=== PATIENT | female | born 1930 | race Caucasian/White ===

== ENCOUNTER 2018-04-05 07:31 | Inpatient (IN) | payer MEDICARE ==
--- NOTE | 2018-04-05 07:44 | ED ---
General Adult HPI - General Stated complaint: abd pain Source: patient, family, EMS Mode of arrival: ambulatory Limitations: no limitations - History of Present Illness Initial comments: Dictation was produced using [employer] ([employer]) dictation software. please excuse any grammatical, word or spelling errors. Chief Complaint: 87-year-old female presents via EMS from assisted living facility for left lower quadrant abdominal pain. History of Present Illness: Patient is an 87-year-old female with past medical history of diverticulosis, thyroid disease presents with left lower quadrant abdominal pain 1 day. Patient states her symptoms began yesterday. She states that it was dull and achy. Patient has a history of diverticulitis. Chart review shows she has a past medical history of diverticulosis. Patient denies any nausea vomiting or diarrhea. Patient is a poor historian. Unknown baseline. EMS who brought patient hour reports stable vital signs. Patient denies any constitutional symptoms. She has past medical history of cholecystectomy and abdominoplasty procedure. She reports that her symptoms have resolved since and transferred to the emergency department. The ROS documented in this emergency department record has been reviewed and confirmed by me. Those systems with pertinent positive or negative responses have been documented in the HPI. All other systems are other negative and/or noncontributory. - Related Data Home Medications Medication Instructions Recorded Confirmed Furosemide [Lasix] 20 mg PO DAILY 01/31/14 04/05/18 Latanoprost Ophth [Xalatan 0.005%] 1 drop BOTH EYES HS 01/31/14 04/05/18 Potassium Chloride [Klor-Con 20] 20 meq PO DAILY 01/31/14 04/05/18 Levothyroxine Sodium [Synthroid] 75 mcg PO DAILY 04/16/14 04/05/18 Loperamide [Imodium] 2 mg PO DAILY PRN 04/16/14 04/05/18 Multivit-Min/FA/Lycopene/Lut 1 tab PO DAILY 01/01/15 04/05/18 [Centrum Silver Tablet] Propylene Glycol/Peg 400/Pf 1 drop BOTH EYES DAILY PRN 01/01/15 04/05/18 [Systane 0.3-0.4% Eye Drops] Aspirin 81 mg PO DAILY 05/07/15 04/05/18 Ergocalciferol [Vitamin D2] 50,000 unit PO Q14D 04/05/18 04/05/18 Ferrous Sulfate [Feosol] 325 mg PO DAILY 04/05/18 04/05/18 Allergies Allergy/AdvReac Type Severity Reaction Status Date / Time amoxicillin [From Augmentin] Allergy Unknown Verified 04/05/18 09:38 clavulanic acid Allergy Unknown Verified 04/05/18 09:38 [From Augmentin] codeine Allergy Rash/Hives Verified 04/05/18 09:38 pravastatin [From Pravachol] Allergy Unknown Verified 04/05/18 09:38 ramipril [From Altace] Allergy Unknown, Verified 04/05/18 09:38 SNEEZING RUNNY NOSE Review of Systems ROS Statement: Those systems with pertinent positive or pertinent negative responses have been documented in the HPI. ROS Other: All systems not noted in ROS Statement are negative. Past Medical History Past Medical History: Eye Disorder, Hyperlipidemia, Hypertension, Mitral Valve Prolapse (MVP), Osteoarthritis (OA), Thyroid Disorder Additional Past Medical History / Comment(s): HX OF ANEMIA, ULCER, GLAUCOMA, HX OF low back pain, HX STATES DIVERTICULOSIS AND HIATAL HERNIA, PT NOT AWARE History of Any Multi-Drug Resistant Organisms: None Reported Past Surgical History: Adenoidectomy, Cardiac Valve Replacement, Cholecystectomy , Joint Replacement, Orthopedic Surgery, Tonsillectomy Additional Past Surgical History / Comment(s): BILAT CATARACT, MITRAL VALVE REPLACED. BILAT KNEE REPLACEMENT. Epidural pain injectionsl x 3. Past Anesthesia/Blood Transfusion Reactions: No Reported Reaction Additional Past Anesthesia/Blood Transfusion Reaction / Comment(s): Pt has recieved blood with no adverse reaction. Past Psychological History: Anxiety, Depression, Panic Disorder Smoking Status: Never smoker Past Drug Use History: None Reported - Past Family History Father Family Medical History: Pneumonia Additional Family Medical History / Comment(s): Father was healthy. He of pneumonia at age 81yrs Mother Family Medical History: Congestive Heart Failure (CHF) Additional Family Medical History / Comment(s): Mother had low blood pressure. She had a cholecystectomy. She at age 85yrs. General Exam - General Exam Comments Initial Comments: PHYSICAL EXAM: General Impression: Alert and oriented x3, not in acute distress HEENT: Normocephalic atraumatic, extra-ocular movements intact, pupils equal and reactive to light bilaterally, mucous membranes moist. Cardiovascular: Heart regular rate and rhythm, S1&S2 audible, no murmurs, rubs or gallops Chest: Lungs clear to auscultation bilaterally, no rhonchi, no wheeze, no rales Abdomen: Tenderness to the left lower quadrant Musculoskeletal: Pulses present and equal in all extremities, no peripheral edema Motor: Power 5/5 bilaterally, no focal deficits noted Neurological: CN II-XII grossly intact, no focal motor or sensory deficits noted Skin: Intact with no visualized rashes Psych: Normal affect and mood Limitations: no limitations Course Vital Signs 04/05/18 07:34 Temperature 98.8 F Pulse Rate 87 Respiratory 18 Rate Blood Pressure 172/77 O2 Sat by Pulse 97 Oximetry Medical Decision Making - Medical Decision Making ED course: 82-year-old female presents with left lower quadrant abdominal pain 1 day. Vital signs upon arrival shows no pyrexia. Blood pressure 172/77. Rest of vital signs within normal limits. Laboratory evaluation obtained. Mild leukocytosis of 10.9. Hemoglobin 9.2. Coag panel unremarkable. Metabolic panel is negative. Urinalysis is negative. Abdominal CT was obtained showing diverticulosis without findings of diverticulitis however there is nonvisualization of appendix. There is some right lower quadrant fluid and some suspicion that patient's symptoms likely appendicitis. Serial abdominal examinations were performed. Repeat abdominal exam showed mild increase in tenderness to the periumbilical area. Patient still denies any pain in the right lower quadrant. Patient given IV antibiotics. Discussed patient case with general surgeon who is willing to accept admission. - Lab Data Result diagrams: 04/05/18 07:40 04/05/18 07:40 Lab Results 04/05/18 04/05/18 04/05/18 Range/Units 07:40 07:40 07:40 WBC 10.9 H (3.8-10.6) k/uL RBC 3.78 L (3.80-5.40) m/uL Hgb 9.2 L (11.4-16.0) gm/dL Hct 30.6 L (34.0-46.0) % MCV 81.0 (80.0-100.0) fL MCH 24.4 L (25.0-35.0) pg MCHC 30.1 L (31.0-37.0) g/dL RDW 15.3 (11.5-15.5) % Plt Count 271 (150-450) k/uL Neutrophils % 81 % Lymphocytes % 10 % Monocytes % 5 % Eosinophils % 1 % Basophils % 1 % Neutrophils # 8.8 H (1.3-7.7) k/uL Lymphocytes # 1.1 (1.0-4.8) k/uL Monocytes # 0.5 (0-1.0) k/uL Eosinophils # 0.1 (0-0.7) k/uL Basophils # 0.1 (0-0.2) k/uL Hypochromasia Slight PT (9.0-12.0) sec INR (<1.2) Sodium 139 (137-145) mmol/L Potassium 4.3 (3.5-5.1) mmol/L Chloride 110 H (98-107) mmol/L Carbon Dioxide 24 (22-30) mmol/L Anion Gap 5 mmol/L BUN 18 H (7-17) mg/dL Creatinine 1.07 H (0.52-1.04) mg/dL Est GFR (CKD-EPI)AfAm 55 (>60 ml/min/1.73 sqM) Est GFR (CKD-EPI)NonAf 48 (>60 ml/min/1.73 sqM) Glucose 91 (74-99) mg/dL Plasma Lactic Acid Branden 0.8 (0.7-2.0) mmol/L Calcium 9.1 (8.4-10.2) mg/dL Total Bilirubin 0.4 (0.2-1.3) mg/dL AST 25 (14-36) U/L ALT 27 (9-52) U/L Alkaline Phosphatase 61 (38-126) U/L Total Protein 6.2 L (6.3-8.2) g/dL Albumin 3.7 (3.5-5.0) g/dL Lipase 141 (23-300) U/L Urine Color Urine Appearance (Clear) Urine pH (5.0-8.0) Ur Specific [place] (1.001-1.035) Urine Protein (Negative) Urine Glucose (UA) (Negative) Urine Ketones (Negative) Urine Blood (Negative) Urine Nitrite (Negative) Urine Bilirubin (Negative) Urine Urobilinogen (<2.0) mg/dL Ur Leukocyte Esterase (Negative) 04/05/18 04/05/18 Range/Units 07:40 07:40 WBC (3.8-10.6) k/uL RBC (3.80-5.40) m/uL Hgb (11.4-16.0) gm/dL Hct (34.0-46.0) % MCV (80.0-100.0) fL MCH (25.0-35.0) pg MCHC (31.0-37.0) g/dL RDW (11.5-15.5) % Plt Count (150-450) k/uL Neutrophils % % Lymphocytes % % Monocytes % % Eosinophils % % Basophils % % Neutrophils # (1.3-7.7) k/uL Lymphocytes # (1.0-4.8) k/uL Monocytes # (0-1.0) k/uL Eosinophils # (0-0.7) k/uL Basophils # (0-0.2) k/uL Hypochromasia PT 9.8 (9.0-12.0) sec INR 1.0 (<1.2) Sodium (137-145) mmol/L Potassium (3.5-5.1) mmol/L Chloride (98-107) mmol/L Carbon Dioxide (22-30) mmol/L Anion Gap mmol/L BUN (7-17) mg/dL Creatinine (0.52-1.04) mg/dL Est GFR (CKD-EPI)AfAm (>60 ml/min/1.73 sqM) Est GFR (CKD-EPI)NonAf (>60 ml/min/1.73 sqM) Glucose (74-99) mg/dL Plasma Lactic Acid Branden (0.7-2.0) mmol/L Calcium (8.4-10.2) mg/dL Total Bilirubin (0.2-1.3) mg/dL AST (14-36) U/L ALT (9-52) U/L Alkaline Phosphatase (38-126) U/L Total Protein (6.3-8.2) g/dL Albumin (3.5-5.0) g/dL Lipase (23-300) U/L Urine Color Yellow Urine Appearance Clear (Clear) Urine pH 5.5 (5.0-8.0) Ur Specific [place] 1.014 (1.001-1.035) Urine Protein Negative (Negative) Urine Glucose (UA) Negative (Negative) Urine Ketones Negative (Negative) Urine Blood Negative (Negative) Urine Nitrite Negative (Negative) Urine Bilirubin Negative (Negative) Urine Urobilinogen <2.0 (<2.0) mg/dL Ur Leukocyte Esterase Negative (Negative) Disposition Clinical Impression: Acute abdomen Disposition: ADMITTED IP TO THIS HOSP Condition: Fair Referrals: Genevieve Singh MD [Primary Care Provider] - 1-2 days Time of Disposition: 10:21
[2018-04-05 07:57] LABS: Basophils # (A) 0.1 k/uL (0-0.2); Basophils % (A) 1 %; Eosinophils # (A) 0.1 k/uL (0-0.7); Eosinophils % (A) 1 %; HCT 30.6 % (34.0-46.0); HGB 9.2 gm/dL (11.4-16.0); Hypochromasia Slight; Lymphocytes # (A) 1.1 k/uL (1.0-4.8); Lymphocytes % (A) 10 %; MCH 24.4 pg (25.0-35.0); MCHC 30.1 g/dL (31.0-37.0); Mean Platelet Volume 6.6; Monocytes # (A) 0.5 k/uL (0-1.0); Monocytes % (A) 5 %; Neutrophils # (A) 8.8 k/uL (1.3-7.7); Neutrophils % (A) 81 %; Platelet Count 271 k/uL (150-450); RBC 3.78 m/uL (3.80-5.40); RDW 15.3 % (11.5-15.5); WBC 10.9 k/uL (3.8-10.6)
[2018-04-05 08:05] LABS: Prothrombin Time 9.8 sec (9.0-12.0)
[2018-04-05 08:09] LABS: Appearance,Urine Clear (Clear); Bilirubin,Urine Negative (Negative); Blood,Urine Negative (Negative); Color,Urine Yellow; Glucose,Urine (UA) Negative (Negative); Ketones,Urine Negative (Negative); Leukocyte Esterase,Urine Negative (Negative); Nitrite,Urine Negative (Negative); PH, Urine 5.5 (5.0-8.0); Protein,Urine Negative (Negative); Specific Gravity,Urine 1.014 (1.001-1.035); Urobilinogen,Urine <2.0 mg/dL (<2.0)
[2018-04-05 08:12] LABS: Albumin 3.7 g/dL (3.5-5.0); Calcium 9.1 mg/dL (8.4-10.2); Potassium 4.3 mmol/L (3.5-5.1); Total Bilirubin 0.4 mg/dL (0.2-1.3); Total Protein 6.2 g/dL (6.3-8.2)
[2018-04-05] MEDS ORDERED: metroNIDAZOLE 500 MG TAB PO STA (09:35)
[2018-04-05] MEDS ORDERED: LEVOFLOXACIN 750 MG TAB PO STA (09:35)
--- NOTE | 2018-04-05 10:00 | CT ---
EXAMINATION TYPE: CT abdomen pelvis w con DATE OF EXAM: 04/05/2018 COMPARISON: 09/19/2014 INDICATION: Abdominal pain DLP: 913 mGycm, Automated exposure control for dose reduction was used. CONTRAST: 100 ml mL of Isovue 300. Study performed without Oral Contrast TECHNIQUE: Axial images were obtained from above the diaphragm to the pubic rami in the axial plane a t 5 mm thick sections. Reconstructed images are reviewed on the computer in the coronal plane. FINDINGS: Limited CT sections are obtained the lung bases. The lung bases are clear. Coronary artery calcific ations present. Large hiatal hernia is present. The stomach essentially is in the thorax. CT ABDOMEN: Liver: Normal Spleen: Normal Pancreas: Normal Adrenal glands: The adrenal glands are normal. Gallbladder: Surgically absent Kidneys: No masses are evident. No hydronephrosis is present. No cysts are present. Delayed images were obtained through the kidneys, which remain unremarkable. Aorta: Vascular calcification is within the aorta. Inferior vena cava: Normal. CT PELVIS: Scoliosis is present. Loops of bowel within the abdomen and pelvis are normal. Multiple diverticuli are through the sigm oid colon. No acute diverticulitis is evident. Some fecal debris is at the rectum. There are loops of bowel which are incompletely distended or lack oral contrast limiting their evaluation. Appendix: Not identified. There is some fluid in the pelvis and right adnexal region. Correlate with patient's history. The appendix is not identified in this is not been surgically removed, clinical ma nagement of any suspected appendicitis will be recommended. Urinary bladder: Normal. Genitourinary structures: Uterus appears normal. Some fluid is in the right adnexal region. Fluid is within the cul-de-sac. Osseous structures: No suspicious lytic or sclerotic lesions. Facet changes are within the lower lumb ar spine. IMPRESSIONS: 1. Diverticulosis without acute diverticulitis. 2. Nonvisualization of the appendix. Right lower quadrant fluid is present. Clinical management of an y suspected appendicitis will be recommended.
[2018-04-05] MEDS ORDERED: metroNIDAZOLE-NS PMX 500 MG in SALINE 1 100ML.BAG IVPB STA (10:17)
[2018-04-05] MEDS ORDERED: cefTRIAXone IN SWFI 1,000 MG/10 ML SYRINGE IVP STA (10:20)
[2018-04-05] MEDS ORDERED: NALOXONE 0.4 MG/ML 1 ML VIAL IV PRN (10:21)
[2018-04-05 11:56] VITALS: BMI 24.0
--- NOTE | 2018-04-05 15:29 | P.GSCN ---
History of Present Illness Consult date: 04/05/18 Reason for Consult: Abdominal pain History of present illness: 87-year-old female presented to the emergency room with a chief complaint of experiencing left lower quadrant abdominal pain. 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 Reviewing the emergency room record patient presented via the EMS system from an assisted living facility after experiencing the left lower quadrant abdominal pain. reportedly has a history of diverticulitis. states the pain was dull and achy. Patient currently is stating that she has no abdominal pain. Computed tomography scan abdomen pelvis showed diverticulosis without acute diverticulitis Review of Systems essentially unremarkable except as mentioned in the present illness Past Medical History Past Medical History: Eye Disorder, Hyperlipidemia, Hypertension, Mitral Valve Prolapse (MVP), Osteoarthritis (OA), Thyroid Disorder Additional Past Medical History / Comment(s): HX OF ANEMIA, ULCER, GLAUCOMA, HX OF low back pain, HX STATES DIVERTICULOSIS AND HIATAL HERNIA, PT NOT AWARE History of Any Multi-Drug Resistant Organisms: None Reported Past Surgical History: Adenoidectomy, Cardiac Valve Replacement, Cholecystectomy , Joint Replacement, Orthopedic Surgery, Tonsillectomy Additional Past Surgical History / Comment(s): BILAT CATARACT, MITRAL VALVE REPLACED. BILAT KNEE REPLACEMENT. Epidural pain injectionsl x 3. Past Anesthesia/Blood Transfusion Reactions: No Reported Reaction Additional Past Anesthesia/Blood Transfusion Reaction / Comm: Pt has recieved blood with no adverse reaction. Past Psychological History: Anxiety, Depression, Panic Disorder Additional Psychological History / Comment(s): PT STATES NO CURRENT ISSUES Smoking Status: Never smoker Past Alcohol Use History: Occasional Additional Past Alcohol Use History / Comment(s): Pt may drink 2-3 drinks a month. Past Drug Use History: None Reported - Past Family History Father Family Medical History: Pneumonia Additional Family Medical History / Comment(s): Father was healthy. He of pneumonia at age 81yrs Mother Family Medical History: Congestive Heart Failure (CHF) Additional Family Medical History / Comment(s): Mother had low blood pressure. She had a cholecystectomy. She at age 85yrs. Medications and Allergies Home Medications Medication Instructions Recorded Confirmed Type Furosemide [Lasix] 20 mg PO DAILY 01/31/14 04/05/18 History Latanoprost Ophth [Xalatan 0.005%] 1 drop BOTH EYES HS 01/31/14 04/05/18 History Potassium Chloride [Klor-Con 20] 20 meq PO DAILY 01/31/14 04/05/18 History Levothyroxine Sodium [Synthroid] 75 mcg PO DAILY 04/16/14 04/05/18 History Loperamide [Imodium] 2 mg PO DAILY PRN 04/16/14 04/05/18 History Multivit-Min/FA/Lycopene/Lut 1 tab PO DAILY 01/01/15 04/05/18 History [Centrum Silver Tablet] Propylene Glycol/Peg 400/Pf 1 drop BOTH EYES DAILY PRN 01/01/15 04/05/18 History [Systane 0.3-0.4% Eye Drops] Aspirin 81 mg PO DAILY 05/07/15 04/05/18 History Ergocalciferol [Vitamin D2] 50,000 unit PO Q14D 04/05/18 04/05/18 History Ferrous Sulfate [Feosol] 325 mg PO DAILY 04/05/18 04/05/18 History Allergies Allergy/AdvReac Type Severity Reaction Status Date / Time amoxicillin [From Augmentin] Allergy Unknown Verified 04/05/18 09:38 clavulanic acid Allergy Unknown Verified 04/05/18 09:38 [From Augmentin] codeine Allergy Rash/Hives Verified 04/05/18 09:38 pravastatin [From Pravachol] Allergy Unknown Verified 04/05/18 09:38 ramipril [From Altace] Allergy Unknown, Verified 04/05/18 09:38 SNEEZING RUNNY NOSE Surgical - Exam Vital Signs Temp Pulse Resp BP Pulse Ox 98.8 F 87 18 172/77 97 04/05/18 07:34 04/05/18 07:34 04/05/18 07:34 04/05/18 07:34 04/05/18 07:34 GENERAL APPEARANCE: 87-year-old female patient is alert, oriented, in no acute distress. VITAL SIGNS: Reviewed HEENT: Head is normocephalic and atraumatic. Pupils are equal and reactive. The nares are patent. Oropharynx is clear without lesions. NECK: Supple without lymphadenopathy. Traches midline. HEART: S1, S2. Regular rate and rhythm. LUNGS: No crackles or wheezes are heard. ABDOMEN: Soft, nontender, nondistended with good bowel sounds. No peritoneal signs. No palpable organomegaly or masses. EXTREMITIES: Normal skin color and turgor. No cyanosis, rash, ulceration, clubbing or edema. Radial pedal pulses are 2/4 bilaterally. NEUROLOGICAL: No focal deficits. Strength and sensation are grossly intact. Results - Labs 04/05/18 07:40 04/05/18 07:40 Abnormal Lab Results - Last 24 Hours (Table) 04/05/18 04/05/18 Range/Units 07:40 07:40 WBC 10.9 H (3.8-10.6) k/uL RBC 3.78 L (3.80-5.40) m/uL Hgb 9.2 L (11.4-16.0) gm/dL Hct 30.6 L (34.0-46.0) % MCH 24.4 L (25.0-35.0) pg MCHC 30.1 L (31.0-37.0) g/dL Neutrophils # 8.8 H (1.3-7.7) k/uL Chloride 110 H (98-107) mmol/L BUN 18 H (7-17) mg/dL Creatinine 1.07 H (0.52-1.04) mg/dL Total Protein 6.2 L (6.3-8.2) g/dL Diabetes panel 04/05/18 Range/Units 07:40 Sodium 139 (137-145) mmol/L Potassium 4.3 (3.5-5.1) mmol/L Chloride 110 H (98-107) mmol/L Carbon Dioxide 24 (22-30) mmol/L BUN 18 H (7-17) mg/dL Creatinine 1.07 H (0.52-1.04) mg/dL Glucose 91 (74-99) mg/dL Calcium 9.1 (8.4-10.2) mg/dL AST 25 (14-36) U/L ALT 27 (9-52) U/L Alkaline Phosphatase 61 (38-126) U/L Total Protein 6.2 L (6.3-8.2) g/dL Albumin 3.7 (3.5-5.0) g/dL Calcium panel 04/05/18 Range/Units 07:40 Calcium 9.1 (8.4-10.2) mg/dL Albumin 3.7 (3.5-5.0) g/dL Pituitary panel 04/05/18 Range/Units 07:40 Sodium 139 (137-145) mmol/L Potassium 4.3 (3.5-5.1) mmol/L Chloride 110 H (98-107) mmol/L Carbon Dioxide 24 (22-30) mmol/L BUN 18 H (7-17) mg/dL Creatinine 1.07 H (0.52-1.04) mg/dL Glucose 91 (74-99) mg/dL Calcium 9.1 (8.4-10.2) mg/dL Adrenal panel 04/05/18 Range/Units 07:40 Sodium 139 (137-145) mmol/L Potassium 4.3 (3.5-5.1) mmol/L Chloride 110 H (98-107) mmol/L Carbon Dioxide 24 (22-30) mmol/L BUN 18 H (7-17) mg/dL Creatinine 1.07 H (0.52-1.04) mg/dL Glucose 91 (74-99) mg/dL Calcium 9.1 (8.4-10.2) mg/dL Total Bilirubin 0.4 (0.2-1.3) mg/dL AST 25 (14-36) U/L ALT 27 (9-52) U/L Alkaline Phosphatase 61 (38-126) U/L Total Protein 6.2 L (6.3-8.2) g/dL Albumin 3.7 (3.5-5.0) g/dL Assessment and Plan Assessment: Impression present on admission left lower quadrant pain suspect due to diverticulosis without acute diverticulitis CAT scan of the abdomen pelvis nonvisualization of the appendix Plan No evidence of an acute surgical abdomen at this time will follow with you Start clear liquid diet IV fluid hydration Follow up on urine culture DVT and GI prophylaxis further recommendations pending Surgical consultation dictated for Dr. arevalo The above impression and plan of care have been discussed and directed by signing physician. Pat Rm nurse practitioner acting as scribe for signing physician.
[2018-04-05] MEDS ORDERED: ARTIFICIAL TEARS-HYPROMELLOSE DROPS 15 ML BTL BOTH EYES PRN (15:57)
--- NOTE | 2018-04-05 16:19 | P.HPIM ---
History of Present Illness H&P Date: 04/05/18 Chief Complaint: Left lower quadrant abdominal pain This is a 87-year-old female with a known past medical history of hypertension, hyperlipidemia, hypothyroidism, mitral valve replacement and gastric ulcer. Patient lives in assisted living home. She is a poor historian. She is able to tell me that she came to the hospital because she had left lower quadrant abdominal pain. The pain has now resolved. Initially there were concerns about a possible appendicitis. And patient was admitted to surgical service. She has been seen evaluated by surgical service and they felt that it was not an appendicitis. Therefore, she is now admitted to Dr. Singh's service. Computed tomography scan of the abdomen and pelvis shows diverticulosis without acute diverticulitis. Nonvisualization of the appendix right lower quadrant fluid is present. Patient had a white count of 10.9 hemoglobin 9.2. She does have known history of iron deficiency anemia. She is not complaining of any change in bowel movements or blood in her stool that she is aware of. LFTs amylase and lipase are normal. Urinalysis is negative. Cultures pending. She did receive Levaquin and Flagyl and Rocephin in the ER. Patient is been started on IV fluids and a clear liquid diet. Review of Systems Please refer to HPI otherwise unremarkable Past Medical History Past Medical History: Eye Disorder, Hyperlipidemia, Hypertension, Mitral Valve Prolapse (MVP), Osteoarthritis (OA), Thyroid Disorder Additional Past Medical History / Comment(s): HX OF ANEMIA, ULCER, GLAUCOMA, HX OF low back pain, HX STATES DIVERTICULOSIS AND HIATAL HERNIA, PT NOT AWARE History of Any Multi-Drug Resistant Organisms: None Reported Past Surgical History: Adenoidectomy, Cardiac Valve Replacement, Cholecystectomy , Joint Replacement, Orthopedic Surgery, Tonsillectomy Additional Past Surgical History / Comment(s): BILAT CATARACT, MITRAL VALVE REPLACED. BILAT KNEE REPLACEMENT. Epidural pain injectionsl x 3. Past Anesthesia/Blood Transfusion Reactions: No Reported Reaction Additional Past Anesthesia/Blood Transfusion Reaction / Comment(s): Pt has recieved blood with no adverse reaction. Past Psychological History: Anxiety, Depression, Panic Disorder Additional Psychological History / Comment(s): PT STATES NO CURRENT ISSUES Smoking Status: Never smoker Past Alcohol Use History: Occasional Additional Past Alcohol Use History / Comment(s): Pt may drink 2-3 drinks a month. Past Drug Use History: None Reported - Past Family History Father Family Medical History: Pneumonia Additional Family Medical History / Comment(s): Father was healthy. He of pneumonia at age 81yrs Mother Family Medical History: Congestive Heart Failure (CHF) Additional Family Medical History / Comment(s): Mother had low blood pressure. She had a cholecystectomy. She at age 85yrs. Medications and Allergies Home Medications Medication Instructions Recorded Confirmed Type Furosemide [Lasix] 20 mg PO DAILY 01/31/14 04/05/18 History Latanoprost Ophth [Xalatan 0.005%] 1 drop BOTH EYES HS 01/31/14 04/05/18 History Potassium Chloride [Klor-Con 20] 20 meq PO DAILY 01/31/14 04/05/18 History Levothyroxine Sodium [Synthroid] 75 mcg PO DAILY 04/16/14 04/05/18 History Loperamide [Imodium] 2 mg PO DAILY PRN 04/16/14 04/05/18 History Multivit-Min/FA/Lycopene/Lut 1 tab PO DAILY 01/01/15 04/05/18 History [Centrum Silver Tablet] Propylene Glycol/Peg 400/Pf 1 drop BOTH EYES DAILY PRN 01/01/15 04/05/18 History [Systane 0.3-0.4% Eye Drops] Aspirin 81 mg PO DAILY 05/07/15 04/05/18 History Ergocalciferol [Vitamin D2] 50,000 unit PO Q14D 04/05/18 04/05/18 History Ferrous Sulfate [Feosol] 325 mg PO DAILY 04/05/18 04/05/18 History Allergies Allergy/AdvReac Type Severity Reaction Status Date / Time amoxicillin [From Augmentin] Allergy Unknown Verified 04/05/18 09:38 clavulanic acid Allergy Unknown Verified 04/05/18 09:38 [From Augmentin] codeine Allergy Rash/Hives Verified 04/05/18 09:38 pravastatin [From Pravachol] Allergy Unknown Verified 04/05/18 09:38 ramipril [From Altace] Allergy Unknown, Verified 04/05/18 09:38 SNEEZING RUNNY NOSE Physical Exam Vitals: Vital Signs Temp Pulse Pulse Resp BP BP Pulse Ox 04/05/18 14:47 98.7 F 100 16 132/76 95 04/05/18 11:44 97.7 F 94 18 165/76 94 L 04/05/18 10:55 80 17 168/70 97 04/05/18 07:34 98.8 F 87 18 172/77 97 Intake and Output 04/05/18 04/05/18 04/05/18 06:59 14:59 22:59 Other: # Voids 1 Weight 63.503 kg Head normocephalic Neck supple Lungs clear to auscultation bilaterally no wheezing or crackles Heart regular rate and rhythm S1-S2, no rub or gallop Abdomen is soft nontender nondistended positive bowel sounds no hepatosplenomegaly Extremities no edema Neuro alert and orientated to 3. But confused at times Results CBC & Chem 7: 04/05/18 07:40 04/05/18 07:40 Labs: Abnormal Lab Results - Last 24 Hours (Table) 04/05/18 04/05/18 Range/Units 07:40 07:40 WBC 10.9 H (3.8-10.6) k/uL RBC 3.78 L (3.80-5.40) m/uL Hgb 9.2 L (11.4-16.0) gm/dL Hct 30.6 L (34.0-46.0) % MCH 24.4 L (25.0-35.0) pg MCHC 30.1 L (31.0-37.0) g/dL Neutrophils # 8.8 H (1.3-7.7) k/uL Chloride 110 H (98-107) mmol/L BUN 18 H (7-17) mg/dL Creatinine 1.07 H (0.52-1.04) mg/dL Total Protein 6.2 L (6.3-8.2) g/dL Microbiology - Last 24 Hours (Table) 04/05/18 07:40 Urine Culture - Preliminary Urine,Voided Assessment and Plan Assessment: 1. Left lower quadrant abdominal pain with known history of diverticulosis. No evidence of diverticulitis on CAT scan. Patient seen by surgical service and they felt that there was no evidence of an acute surgical abdomen. Patient has been started on a clear liquid diet continue with IV fluids. Follow up with urine culture. Urinalysis negative. LFTs, amylase and lipase within normal range. We will continue patient on IV Flagyl. If white count normalizes and she's had no further abdominal pain she can be discharged home possibly tomorrow 2. Anemia hemoglobin 9.2. Patient has a known history of iron deficiency anemia. Check stool for occult blood. Check iron studies. Continue with the ferrous sulfate 325 mg daily 3. Hypothyroidism continue Synthroid 4. History of mitral valve replacement 5. Essential hypertension continue Lasix 6. History of gastric ulcer 7. Chronic kidney disease, stage III. Creatinine on admission 1.07. Baseline creatinine around 1.5 GI prophylaxis Protonix and DVT prophylaxis subcu heparin Time with Patient: Greater than 30 (Greater than 60% of the total time spent in counseling and coordination of care.I performed an examination of the patient and discussed their management with the physician Spring Up Supervisor. I have reviewed the Physician Spring Up Supervisor's notes and agree with the documented findings and plan of care)
[2018-04-05] MEDS ORDERED: ERGOCALCIFEROL 50,000 UNIT CAP PO SCH (16:30)
[2018-04-05] MEDS: metroNIDAZOLE-NS PMX 500 MG in SALINE 1 100ML.BAG IVPB SCH ×2 (17:22→23:05)
[2018-04-05] MEDS: HEPARIN SODIUM,PORCINE 5,000 UNIT/ML 1 ML VIAL SQ SCH (20:09)
[2018-04-05] MEDS: LATANOPROST 0.005% OPHTH DROPS 2.5 ML BTL BOTH EYES SCH (20:09)
[2018-04-05] MEDS: MELATONIN 5 MG TABLET PO SCH (20:09)
[2018-04-06 01:08] LABS: Iron Saturation 3.86 (12.00-45.00)
[2018-04-06 07:40] LABS: Basophils # (A) 0.1 k/uL (0-0.2); Basophils % (A) 1 %; Eosinophils # (A) 0.1 k/uL (0-0.7); Eosinophils % (A) 1 %; HCT 26.8 % (34.0-46.0); HGB 8.6 gm/dL (11.4-16.0); Hypochromasia Moderate; Lymphocytes % (A) 12 %; MCH 26.4 pg (25.0-35.0); MCV 82.6 fL (80.0-100.0); Mean Platelet Volume 6.8; Monocytes # (A) 0.7 k/uL (0-1.0); Monocytes % (A) 8 %; Neutrophils # (A) 6.9 k/uL (1.3-7.7); Neutrophils % (A) 76 %; Platelet Count 234 k/uL (150-450); RBC 3.25 m/uL (3.80-5.40)
[2018-04-06 07:49] LABS: Albumin 3.1 g/dL (3.5-5.0); Calcium 8.3 mg/dL (8.4-10.2); Total Bilirubin 0.6 mg/dL (0.2-1.3); Total Protein 5.4 g/dL (6.3-8.2)
[2018-04-06] MEDS: metroNIDAZOLE-NS PMX 500 MG in SALINE 1 100ML.BAG IVPB SCH ×3 (08:35→23:22)
[2018-04-06] MEDS: HEPARIN SODIUM,PORCINE 5,000 UNIT/ML 1 ML VIAL SQ SCH ×2 (08:36→20:23)
[2018-04-06] MEDS: FERROUS SULFATE 325 MG TAB PO SCH (08:36)
[2018-04-06] MEDS: POTASSIUM CHLORIDE ER 20 MEQ TAB.ER PO SCH (08:36)
[2018-04-06] MEDS: LEVOTHYROXINE 75 MCG TAB PO SCH (08:36)
[2018-04-06] MEDS: ASPIRIN 81 MG PO SCH (08:36)
[2018-04-06] MEDS: FUROSEMIDE 20 MG TAB PO SCH (08:36)
[2018-04-06] MEDS: PANTOPRAZOLE 40 MG TABLET PO SCH (08:37)
--- NOTE | 2018-04-06 16:08 | P.PN ---
Subjective Progress Note Date: 04/06/18 This is a 87-year-old female with a known past medical history of hypertension, hyperlipidemia, hypothyroidism, mitral valve replacement and gastric ulcer. Patient lives in assisted living home. She is a poor historian. She is able to tell me that she came to the hospital because she had left lower quadrant abdominal pain. The pain has now resolved. Initially there were concerns about a possible appendicitis. And patient was admitted to surgical service. She has been seen evaluated by surgical service and they felt that it was not an appendicitis. Therefore, she is now admitted to Dr. Singh's service. Computed tomography scan of the abdomen and pelvis shows diverticulosis without acute diverticulitis. Nonvisualization of the appendix right lower quadrant fluid is present. Patient had a white count of 10.9 hemoglobin 9.2. She does have known history of iron deficiency anemia. She is not complaining of any change in bowel movements or blood in her stool that she is aware of. LFTs amylase and lipase are normal. Urinalysis is negative. Cultures pending. She did receive Levaquin and Flagyl and Rocephin in the ER. Patient is been started on IV fluids and a clear liquid diet. On 04/06/2018 patient is currently resting in bed. States that pain is much improved. States that she is tolerating diet. Patient denies chest pain or shortness of breath at this time Objective - Vital Signs Vital signs: Vital Signs Temp 98 F 04/06/18 14:57 Pulse 81 04/06/18 14:57 Resp 16 04/06/18 14:57 BP 112/55 04/06/18 14:57 Pulse Ox 97 04/06/18 14:57 Intake & Output 04/05/18 04/06/18 04/06/18 18:59 06:59 18:59 Intake Total 400 Balance 400 Weight 63.503 kg Intake: Intake, IV Titration 100 Amount metroNIDAZOLE-NS PMX 500 100 mg In Saline 1 100ml.bag @ 100 mls/hr IVPB Q8HR [facility] Rx#:[id number] Other 300 Other: # Voids 1 3 - Exam Head normocephalic Neck supple Lungs clear to auscultation bilaterally no wheezing or crackles Heart regular rate and rhythm S1-S2, no rub or gallop Abdomen is soft nontender nondistended positive bowel sounds no hepatosplenomegaly Extremities no edema Neuro alert and orientated to 3 - Labs CBC & Chem 7: 04/06/18 06:47 04/06/18 06:47 Labs: Abnormal Lab Results - Last 24 Hours (Table) 04/05/18 04/06/18 04/06/18 Range/Units 07:40 06:47 06:47 RBC 3.25 L (3.80-5.40) m/uL Hgb 8.6 L (11.4-16.0) gm/dL Hct 26.8 L (34.0-46.0) % Chloride 109 H (98-107) mmol/L Creatinine 1.15 H (0.52-1.04) mg/dL Calcium 8.3 L (8.4-10.2) mg/dL Iron 14 L (50-170) ug/dL Iron Saturation 3.86 L (12.00-45.00) Total Protein 5.4 L (6.3-8.2) g/dL Albumin 3.1 L (3.5-5.0) g/dL Microbiology - Last 24 Hours (Table) 04/05/18 07:40 Urine Culture - Preliminary Urine,Voided Gram Neg Bacilli Assessment and Plan Assessment: 1. Left lower quadrant abdominal pain with known history of diverticulosis. No evidence of diverticulitis on CAT scan. Patient seen by surgical service and they felt that there was no evidence of an acute surgical abdomen. Patient has been started on a clear liquid diet continue with IV fluids. Follow up with urine culture. Urinalysis negative. LFTs, amylase and lipase within normal range. We will continue patient on IV Flagyl. If white count normalizes and she's had no further abdominal pain she can be discharged home possibly tomorrow. White blood cell 9.0. Awaiting surgical recommendation antibiotic and discharge. Anticipate discharge home tomorrow 2. Anemia hemoglobin 9.2. Patient has a known history of iron deficiency anemia. Check stool for occult blood. Check iron studies. Continue with the ferrous sulfate 325 mg daily. Hemoglobin 8.6 continue to monitor 3. Hypothyroidism continue Synthroid 4. History of mitral valve replacement 5. Essential hypertension continue Lasix 6. History of gastric ulcer 7. Chronic kidney disease, stage III. Creatinine on admission 1.07. Baseline creatinine around 1.5 GI prophylaxis Protonix and DVT prophylaxis subcu heparin Probable discharge home tomorrow. Patient lives at assisted living facility. I performed an examination of the patient and discussed their management with the Nurse Practitioner. I have reviewed the Nurse Practitioner's notes and agree with the documented findings and plan of care
[2018-04-06] MEDS: MULTIVITAMINS, THERA 1 EACH TAB PO SCH (16:22)
--- NOTE | 2018-04-06 19:04 | P.PN ---
Progress Note - Text Progress Note Date: 04/06/18 The patient had been pain-free during the day. However on my examination today she had pain and right lower quadrant. On exam her vital signs are stable. Her abdomen soft. Patient will undergo repeat CAT scan to evaluate for possible source of her Perry pain.
[2018-04-06] MEDS: IOPAMIDOL-300 CONTRAST 30 ML VIAL (ORAL USE) PO PRN ×2 (19:31→20:24)
[2018-04-06] MEDS: LATANOPROST 0.005% OPHTH DROPS 2.5 ML BTL BOTH EYES SCH (20:24)
[2018-04-06] MEDS: MELATONIN 5 MG TABLET PO SCH (21:25)
--- NOTE | 2018-04-06 22:38 | CT ---
EXAMINATION TYPE: CT abdomen pelvis wo con DATE OF EXAM: 04/06/2018 COMPARISON: Yesterday HISTORY: RLQ pain CT DLP: 283.3 mGycm Automated exposure control for dose reduction was used. TECHNIQUE: Helical acquisition of images was performed from the lung bases through the pelvis. FINDINGS: There is mild scarring and subsegmental atelectasis at the lung bases. There is no pleural effusion. There is moderate-sized hiatal hernia. Heart size is normal. Liver shows no focal defect. There are clips from cholecystectomy. Bile ducts are not dilated. There is no pancreatic mass. Spleen appears normal. There is no adrenal mass. Kidneys have normal size and contour. There is no hydronephrosis. There is no retroperitoneal adenopathy. There are multiple diverticula in the sigmoid colon. There is small am ount of free fluid in the pelvis. There is no intestinal wall thickening. There are no dilated loops. There is mild wall thickening of the sigmoid colon. Appendix is not definitely seen. There is no sig n of appendicitis. There are spondylotic changes in the lumbar spine. There is no compression fractur e. IMPRESSION: WALL THICKENING OF THE SIGMOID COLON WITH NUMEROUS DIVERTICULA CONSISTENT WITH MILD DIVERTICULITIS. N O EVIDENCE OF ABSCESS. NO CHANGE COMPARED TO YESTERDAY. MILD FREE FLUID IN THE PELVIS. Large hiatal hernia.
[2018-04-07 07:05] LABS: Basophils # (A) 0.1 k/uL (0-0.2); Basophils % (A) 1 %; Eosinophils # (A) 0.1 k/uL (0-0.7); Eosinophils % (A) 1 %; HCT 27.5 % (34.0-46.0); HGB 8.7 gm/dL (11.4-16.0); Hypochromasia Slight; Lymphocytes # (A) 0.9 k/uL (1.0-4.8); Lymphocytes % (A) 11 %; MCH 25.9 pg (25.0-35.0); MCHC 31.5 g/dL (31.0-37.0); MCV 82.2 fL (80.0-100.0); Mean Platelet Volume 6.5; Monocytes # (A) 0.7 k/uL (0-1.0); Monocytes % (A) 8 %; Neutrophils # (A) 6.3 k/uL (1.3-7.7); Neutrophils % (A) 76 %; Platelet Count 245 k/uL (150-450); RBC 3.35 m/uL (3.80-5.40); RDW 14.8 % (11.5-15.5); WBC 8.3 k/uL (3.8-10.6)
[2018-04-07 07:13] LABS: Albumin 3.1 g/dL (3.5-5.0); Calcium 8.2 mg/dL (8.4-10.2); Potassium 3.7 mmol/L (3.5-5.1); Total Bilirubin 0.7 mg/dL (0.2-1.3); Total Protein 5.4 g/dL (6.3-8.2)
[2018-04-07] MEDS: FUROSEMIDE 20 MG TAB PO SCH (08:13)
[2018-04-07] MEDS: LEVOTHYROXINE 75 MCG TAB PO SCH (08:13)
[2018-04-07] MEDS: ASPIRIN 81 MG PO SCH (08:13)
[2018-04-07] MEDS: FERROUS SULFATE 325 MG TAB PO SCH (08:13)
[2018-04-07] MEDS: MULTIVITAMINS, THERA 1 EACH TAB PO SCH (08:13)
[2018-04-07] MEDS: PANTOPRAZOLE 40 MG TABLET PO SCH (08:13)
[2018-04-07] MEDS: POTASSIUM CHLORIDE ER 20 MEQ TAB.ER PO SCH (08:13)
[2018-04-07] MEDS: metroNIDAZOLE-NS PMX 500 MG in SALINE 1 100ML.BAG IVPB SCH ×2 (08:14→17:56)
[2018-04-07] MEDS: HEPARIN SODIUM,PORCINE 5,000 UNIT/ML 1 ML VIAL SQ SCH ×2 (08:14→19:54)
[2018-04-07] MEDS: LEVOFLOXACIN 500MG-D5W PMX 500 MG in DEXTROSE/WATER 1 100ML.BAG IVPB SCH (09:26)
--- NOTE | 2018-04-07 10:47 | P.PN ---
Subjective Progress Note Date: 04/07/18 87-year-old female sitting up on a bedside commode. Nursing reports patient is having frequent stools. Patient did have a CAT scan done today of the abdomen pelvis showed mild diverticulitis disease no abscess noted the appendix not well visualized. Hemoglobin 8.7. Patient currently is denying any pain in the abdomen when questioning Objective - Vital Signs Vital signs: Vital Signs Temp 97.4 F L 04/07/18 08:30 Pulse 84 04/07/18 08:30 Resp 20 04/07/18 08:30 BP 122/70 04/07/18 08:30 Pulse Ox 97 04/07/18 08:30 Intake & Output 04/06/18 04/07/18 04/07/18 18:59 06:59 18:59 Intake Total 800 Balance 800 Intake: Intake, IV Titration 100 Amount metroNIDAZOLE-NS PMX 500 100 mg In Saline 1 100ml.bag @ 100 mls/hr IVPB Q8HR [facility] Rx#:[id number] Other 700 Other: # Voids 1 3 # Bowel Movements 2 - Exam Physical exam 87-year-old female sitting up appears in no acute distress Lungs adequate air movement bilaterally on room air Heart S1-S2 audible regular Abdomen soft no facial grimacing with palpitation to the abdominal wall bowel tones present no nausea no vomiting reportedly having frequent loose stools Extremities no edema - Labs CBC & Chem 7: 04/07/18 06:34 04/07/18 06:34 Labs: Abnormal Lab Results - Last 24 Hours (Table) 04/07/18 04/07/18 Range/Units 06:34 06:34 RBC 3.35 L (3.80-5.40) m/uL Hgb 8.7 L (11.4-16.0) gm/dL Hct 27.5 L (34.0-46.0) % Lymphocytes # 0.9 L (1.0-4.8) k/uL Chloride 108 H (98-107) mmol/L Creatinine 1.12 H (0.52-1.04) mg/dL Calcium 8.2 L (8.4-10.2) mg/dL Total Protein 5.4 L (6.3-8.2) g/dL Albumin 3.1 L (3.5-5.0) g/dL Microbiology - Last 24 Hours (Table) 04/05/18 07:40 Urine Culture - Final Urine,Voided Klebsiella pneumoniae Assessment and Plan Assessment: Impression present on admission left lower quadrant pain suspect due to mild diverticulitis CAT scan of the abdomen pelvis done on the April showed wall thickening of the sigmoid colon with numerous diverticulla consistent with mild diverticulitis no evidence of abscess no signs of appendicitis Present on admission UTI with positive urine culture Klebsiella pneumonia Hypokalemia corrected resolved Plan Potassium replaced No evidence of an acute surgical abdomen at this time will follow with you Start clear liquid diet advance as tolerated IV fluid hydration DVT and GI prophylaxis further recommendations pending Continue IV Levaquin and Flagyl as ordered The above impression and plan of care have been discussed and directed by signing physician. Pat Rm nurse practitioner acting as scribe for signing physician.
--- NOTE | 2018-04-07 12:50 | P.PN ---
<Dionna Julien - Last Filed: 04/07/18 12:46> Subjective Progress Note Date: 04/07/18 This is a 87-year-old female with a known past medical history of hypertension, hyperlipidemia, hypothyroidism, mitral valve replacement and gastric ulcer. Patient lives in assisted living home. She is a poor historian. She is able to tell me that she came to the hospital because she had left lower quadrant abdominal pain. The pain has now resolved. Initially there were concerns about a possible appendicitis. And patient was admitted to surgical service. She has been seen evaluated by surgical service and they felt that it was not an appendicitis. Therefore, she is now admitted to Dr. Singh's service. Computed tomography scan of the abdomen and pelvis shows diverticulosis without acute diverticulitis. Nonvisualization of the appendix right lower quadrant fluid is present. Patient had a white count of 10.9 hemoglobin 9.2. She does have known history of iron deficiency anemia. She is not complaining of any change in bowel movements or blood in her stool that she is aware of. LFTs amylase and lipase are normal. Urinalysis is negative. Cultures pending. She did receive Levaquin and Flagyl and Rocephin in the ER. Patient is been started on IV fluids and a clear liquid diet. On 04/06/2018 patient is currently resting in bed. States that pain is much improved. States that she is tolerating diet. Patient denies chest pain or shortness of breath at this time 04/07/2018 repeat computed tomography scan of the abdomen is now showing evidence of mild diverticulitis. Levaquin will be added on top Flagyl. Patient reports no bowel movement. White count is 8.3. Hemoglobin 8.7. Still having some left lower quadrant abdominal pain. Objective - Vital Signs Vital signs: Vital Signs Temp 97.4 F L 04/07/18 08:30 Pulse 84 04/07/18 08:30 Resp 20 04/07/18 08:30 BP 122/70 04/07/18 08:30 Pulse Ox 97 04/07/18 08:30 Intake & Output 04/06/18 04/07/18 04/07/18 18:59 06:59 18:59 Intake Total 800 Balance 800 Intake: Intake, IV Titration 100 Amount metroNIDAZOLE-NS PMX 500 100 mg In Saline 1 100ml.bag @ 100 mls/hr IVPB Q8HR [facility] Rx#:[id number] Other 700 Other: # Voids 1 3 # Bowel Movements 2 - Exam Head normocephalic Neck supple Lungs clear to auscultation bilaterally no wheezing or crackles Heart regular rate and rhythm S1-S2, no rub or gallop Abdomen is soft left lower quadrant tenderness nondistended positive bowel sounds no hepatosplenomegaly Extremities no edema Neuro alert and orientated to 3 - Labs CBC & Chem 7: 04/07/18 06:34 04/07/18 06:34 Labs: Abnormal Lab Results - Last 24 Hours (Table) 04/07/18 04/07/18 Range/Units 06:34 06:34 RBC 3.35 L (3.80-5.40) m/uL Hgb 8.7 L (11.4-16.0) gm/dL Hct 27.5 L (34.0-46.0) % Lymphocytes # 0.9 L (1.0-4.8) k/uL Chloride 108 H (98-107) mmol/L Creatinine 1.12 H (0.52-1.04) mg/dL Calcium 8.2 L (8.4-10.2) mg/dL Total Protein 5.4 L (6.3-8.2) g/dL Albumin 3.1 L (3.5-5.0) g/dL Microbiology - Last 24 Hours (Table) 04/05/18 07:40 Urine Culture - Final Urine,Voided Klebsiella pneumoniae Assessment and Plan Assessment: 1. Left lower quadrant abdominal pain with known history of diverticulosis. No evidence of diverticulitis on initial CAT scan. Repeat computed tomography scan of the abdomen now showing mild diverticulitis. Levaquin added. Continue Flagyl. 2. Anemia hemoglobin 9.2. Patient has a known history of iron deficiency anemia. Hemoglobin 8.7. Total iron of 14. Increase her ferrous sulfate 325 mg twice a day. Continue to monitor CBC. Patient reports no bowel movements. For occult blood pending 3. Hypothyroidism continue Synthroid 4. History of mitral valve replacement 5. Essential hypertension continue Lasix 6. History of gastric ulcer 7. Chronic kidney disease, stage III. Creatinine on admission 1.07. Baseline creatinine around 1.5 GI prophylaxis Protonix and DVT prophylaxis subcu heparin Advance diet to a full liquid diet and then tolerated. Consult physical therapy. Anticipate discharge back to assisted living possibly tomorrow I performed an examination of the patient and discussed their management with the physician Material Spreader. I have reviewed the Physician Material Spreader's notes and agree with the documented findings and plan of care <Alix Payne - Last Filed: 04/07/18 15:11> Objective - Vital Signs Vital signs: Vital Signs Temp 98.2 F 04/07/18 14:35 Pulse 87 04/07/18 14:35 Resp 14 04/07/18 14:35 BP 123/70 04/07/18 14:35 Pulse Ox 99 04/07/18 14:35 Intake & Output 04/06/18 04/07/18 04/07/18 18:59 06:59 18:59 Intake Total 800 Balance 800 Intake: Intake, IV Titration 100 Amount metroNIDAZOLE-NS PMX 500 100 mg In Saline 1 100ml.bag @ 100 mls/hr IVPB Q8HR [facility] Rx#:[id number] Other 700 Other: # Voids 1 3 # Bowel Movements 2 - Labs CBC & Chem 7: 04/07/18 06:34 04/07/18 06:34 Labs: Abnormal Lab Results - Last 24 Hours (Table) 04/07/18 04/07/18 Range/Units 06:34 06:34 RBC 3.35 L (3.80-5.40) m/uL Hgb 8.7 L (11.4-16.0) gm/dL Hct 27.5 L (34.0-46.0) % Lymphocytes # 0.9 L (1.0-4.8) k/uL Chloride 108 H (98-107) mmol/L Creatinine 1.12 H (0.52-1.04) mg/dL Calcium 8.2 L (8.4-10.2) mg/dL Total Protein 5.4 L (6.3-8.2) g/dL Albumin 3.1 L (3.5-5.0) g/dL Microbiology - Last 24 Hours (Table) 04/05/18 07:40 Urine Culture - Final Urine,Voided Klebsiella pneumoniae Assessment and Plan Assessment: Advance diet as tolerated per surgery. Continue ABX. Discharge planning, likely discharge in the next 24-48 hours. Consult PT and OT. ~Alix Payne DO
[2018-04-07] MEDS: LATANOPROST 0.005% OPHTH DROPS 2.5 ML BTL BOTH EYES SCH (19:54)
[2018-04-07] MEDS: MELATONIN 5 MG TABLET PO SCH (19:54)
[2018-04-08] MEDS: metroNIDAZOLE-NS PMX 500 MG in SALINE 1 100ML.BAG IVPB SCH ×2 (00:14→09:29)
[2018-04-08] MEDS ORDERED: FERROUS SULFATE 325 MG TAB PO SCH (09:00)
[2018-04-08 09:07] LABS: Basophils # (A) 0.1 k/uL (0-0.2); Basophils % (A) 1 %; Eosinophils # (A) 0.2 k/uL (0-0.7); Eosinophils % (A) 2 %; HCT 32.3 % (34.0-46.0); HGB 9.7 gm/dL (11.4-16.0); Hypochromasia Marked; Lymphocytes # (A) 1.3 k/uL (1.0-4.8); Lymphocytes % (A) 15 %; MCH 24.9 pg (25.0-35.0); MCV 83.2 fL (80.0-100.0); Mean Platelet Volume 7.4; Monocytes # (A) 0.6 k/uL (0-1.0); Monocytes % (A) 7 %; Neutrophils # (A) 6.2 k/uL (1.3-7.7); Neutrophils % (A) 71 %; Platelet Count 349 k/uL (150-450); RBC 3.89 m/uL (3.80-5.40); RDW 14.7 % (11.5-15.5); WBC 8.6 k/uL (3.8-10.6)
[2018-04-08 09:23] VITALS: RESP 16
[2018-04-08] MEDS: LEVOTHYROXINE 75 MCG TAB PO SCH (09:33)
[2018-04-08] MEDS: MULTIVITAMINS, THERA 1 EACH TAB PO SCH (09:33)
[2018-04-08] MEDS: ASPIRIN 81 MG PO SCH (09:33)
[2018-04-08] MEDS: HEPARIN SODIUM,PORCINE 5,000 UNIT/ML 1 ML VIAL SQ SCH (09:33)
[2018-04-08] MEDS: POTASSIUM CHLORIDE ER 20 MEQ TAB.ER PO SCH (09:33)
[2018-04-08] MEDS: FUROSEMIDE 20 MG TAB PO SCH (09:33)
[2018-04-08] MEDS: PANTOPRAZOLE 40 MG TABLET PO SCH (09:33)
[2018-04-08 10:04] LABS: Albumin 3.7 g/dL (3.5-5.0); Calcium 8.9 mg/dL (8.4-10.2); Potassium 3.5 mmol/L (3.5-5.1); Total Bilirubin 0.5 mg/dL (0.2-1.3); Total Protein 6.3 g/dL (6.3-8.2)
[2018-04-08] MEDS: LEVOFLOXACIN 500MG-D5W PMX 500 MG in DEXTROSE/WATER 1 100ML.BAG IVPB SCH (11:08)
[2018-04-08] MEDS ORDERED: POTASSIUM CHLORIDE ER 10 MEQ TAB.ER.PRT PO STA (13:06)
--- NOTE | 2018-04-08 13:15 | P.DS ---
Providers Date of admission: 04/08/18 09:18 Expected date of discharge: 04/08/18 Attending physician: Genevieve Singh Consults: 04/05/18 15:35 Consult Physician Routine Consulting Provider: Tian Martins Consult Reason/Comments: abd pain Do you want consulting provider notified?: Already Contacted Primary care physician: Genevieve Singh [facility] Course: Discharge diagnosis 1. Acute diverticulitis: Continue Levaquin and Flagyl for 7 days. Left lower quadrant abdominal pain with known history of diverticulosis. No evidence of diverticulitis on initial CAT scan. Repeat computed tomography scan of the abdomen now showing mild diverticulitis. 2. Anemia: Patient has a known history of iron deficiency anemia. Total iron of 14. Increase her ferrous sulfate 325 mg twice a day. She reports no blood in stools. She has not had a bowel movement. Recheck CBC in 1 week 3. Hypothyroidism continue Synthroid 4. History of mitral valve replacement 5. Essential hypertension continue Lasix 6. History of gastric ulcer 7. Chronic kidney disease, stage III. Creatinine on admission 1.07. Baseline creatinine around 1.5. Creatinine at discharge 1.21 8. Hypokalemia potassium 3.5 at discharge. Patient given a dose of K Dur 10 prior to discharge. Recommend checking BMP in 1 week 7. UTI with Klebsiella pneumoniae sensitive to Levaquin. Continue Levaquin for 7 days Hospital course This is a 87-year-old female with a known past medical history of hypertension, hyperlipidemia, hypothyroidism, mitral valve replacement and gastric ulcer. Patient lives in assisted living home. She is a poor historian. She is able to tell me that she came to the hospital because she had left lower quadrant abdominal pain. The pain has now resolved. Initially there were concerns about a possible appendicitis. And patient was admitted to surgical service. She has been seen evaluated by surgical service and they felt that it was not an appendicitis. Therefore, she is now admitted to Dr. Singh's service. Computed tomography scan of the abdomen and pelvis shows diverticulosis without acute diverticulitis. Nonvisualization of the appendix right lower quadrant fluid is present. Patient had a white count of 10.9 hemoglobin 9.2. She does have known history of iron deficiency anemia. She is not complaining of any change in bowel movements or blood in her stool that she is aware of. LFTs amylase and lipase are normal. Urinalysis is negative. Cultures pending. She did receive Levaquin and Flagyl and Rocephin in the ER. Patient is been started on IV fluids and a clear liquid diet. On 04/06/2018 patient is currently resting in bed. States that pain is much improved. States that she is tolerating diet. Patient denies chest pain or shortness of breath at this time 04/07/2018 repeat computed tomography scan of the abdomen is now showing evidence of mild diverticulitis. Levaquin will be added on top Flagyl. Patient reports no bowel movement. White count is 8.3. Hemoglobin 8.7. Still having some left lower quadrant abdominal pain. Patient is medically stable for discharge. She's been treated for an acute diverticulitis with Levaquin and Flagyl. She was seen by surgical service. No surgical intervention required at this time. Patient is been educated on a diverticular diet to avoid seeds and nuts. She'll continue Levaquin and Flagyl for 7 more days. Her abdominal pain and showing improvement. Still has some mild left lower quadrant discomfort. She is tolerating advancement of diet. Also during has a lesion urinalysis checked culture has grown Klebsiella pneumonia in which it is sensitive to Levaquin. We'll continue again the Levaquin for 7 days to complete treatment for both the diverticulitis and UTI. He is medically stable for discharge. Iron supplement was increased to twice a day due to her anemia hemoglobin at discharge is 9.7 We'll have patient seen in the office in one week with Dr. Singh. Recommend checking CBC and BMP in 1 week I performed an examination of the patient and discussed their management with the physician Rigging Foreman. I have reviewed the Physician Rigging Foreman's notes and agree with the documented findings and plan of care Patient Condition at Discharge: Stable Plan - Discharge Summary Discharge Rx Participant: No New Discharge Prescriptions: New Levofloxacin [Levaquin] 250 mg PO Q24H #7 tab metroNIDAZOLE [Flagyl] 500 mg PO TID #21 tab Continue Potassium Chloride [Klor-Con 20] 20 meq PO DAILY Furosemide [Lasix] 20 mg PO DAILY Latanoprost Ophth [Xalatan 0.005%] 1 drop BOTH EYES HS Levothyroxine Sodium [Synthroid] 75 mcg PO DAILY Loperamide [Imodium] 2 mg PO DAILY PRN PRN Reason: Diarrhea Propylene Glycol/Peg 400/Pf [Systane 0.3-0.4% Eye Drops] 1 drop BOTH EYES DAILY PRN PRN Reason: Dry Eye(S) Multivit-Min/FA/Lycopene/Lut [Centrum Silver Tablet] 1 tab PO DAILY Aspirin 81 mg PO DAILY Ergocalciferol [Vitamin D2 (DRISDOL)] 50,000 unit PO Q14D Ferrous Sulfate [Iron (65 MG Elemental)] 325 mg PO DAILY Discharge Medication List Furosemide [Lasix] 20 mg PO DAILY 01/31/14 [History] Latanoprost Ophth [Xalatan 0.005%] 1 drop BOTH EYES HS 01/31/14 [History] Potassium Chloride [Klor-Con 20] 20 meq PO DAILY 01/31/14 [History] Levothyroxine Sodium [Synthroid] 75 mcg PO DAILY 04/16/14 [History] Loperamide [Imodium] 2 mg PO DAILY PRN 04/16/14 [History] Multivit-Min/FA/Lycopene/Lut [Centrum Silver Tablet] 1 tab PO DAILY 01/01/15 [ History] Propylene Glycol/Peg 400/Pf [Systane 0.3-0.4% Eye Drops] 1 drop BOTH EYES DAILY PRN 01/01/15 [History] Aspirin 81 mg PO DAILY 05/07/15 [History] Ergocalciferol [Vitamin D2 (DRISDOL)] 50,000 unit PO Q14D 04/05/18 [History] Ferrous Sulfate [Iron (65 MG Elemental)] 325 mg PO DAILY 04/05/18 [History] Levofloxacin [Levaquin] 250 mg PO Q24H #7 tab 04/08/18 [Rx] metroNIDAZOLE [Flagyl] 500 mg PO TID #21 tab 04/08/18 [Rx] Follow up Appointment(s)/Referral(s): Tian Martins MD [STAFF PHYSICIAN] - 1 Week Genevieve Singh MD [Primary Care Provider] - 1 Week Ambulatory/Diagnostic Orders: Basic Metabolic Panel [LAB.AMB] Time Frame: 1 Week, Location: None Selected Complete Blood Count w/diff [LAB.AMB] Time Frame: 1 Week, Location: None Selected Activity/Diet/Wound Care/Special Instructions: Diet: cardiac, Diverticular diet. Avoid seeds and nuts Activity: as tolerated Discharge Disposition: HOME SELF-CARE
--- NOTE | 2018-04-08 14:40 | P.PN ---
Subjective Progress Note Date: 04/08/18 Principal diagnosis: Diverticulitis Patient doing well at this time. Pain is absent. She is tolerating diet. She is hoping to go home today. Objective - Vital Signs Vital signs: Vital Signs Temp 97.5 F L 04/08/18 09:22 Pulse 84 04/08/18 09:22 Resp 16 04/08/18 09:22 BP 129/79 04/08/18 09:22 Pulse Ox 99 04/08/18 09:22 Intake & Output 04/07/18 04/08/18 04/08/18 18:59 06:59 18:59 Intake Total 440 600 Balance 440 600 Weight 63.503 kg Intake: Intake, IV Titration 200 Amount Levofloxacin 500Mg-D5w 100 Pmx 500 mg In Dextrose/ Water 1 100ml.bag @ 100 mls/hr IVPB Q24H TWAN Rx#: [id number] metroNIDAZOLE-NS PMX 500 100 mg In Saline 1 100ml.bag @ 100 mls/hr IVPB Q8HR TWAN Rx#:[id number] Oral 240 600 Other: # Voids 1 3 - Exam Abdomen: Soft, nontender, nondistended - Labs CBC & Chem 7: 04/08/18 08:53 04/08/18 08:53 Labs: Abnormal Lab Results - Last 24 Hours (Table) 04/08/18 04/08/18 Range/Units 08:53 08:53 Hgb 9.7 L (11.4-16.0) gm/dL Hct 32.3 L (34.0-46.0) % MCH 24.9 L (25.0-35.0) pg MCHC 30.0 L (31.0-37.0) g/dL Creatinine 1.21 H (0.52-1.04) mg/dL Assessment and Plan (1) Diverticulitis Narrative/Plan: Patient doing well today. Continued low fiber diet. Stable for discharge. Current Visit: Yes Status: Acute Code(s): K57.92 - DVTRCLI OF INTEST, PART UNSP, W/O PERF OR ABSCESS W/O BLEED SNOMED Code(s): 564577277
[2018-04-08 15:46] VITALS: BP 109/61; PULSE 91; TEMP 98
[2018-04-08] MEDS ORDERED: metroNIDAZOLE 500 MG TAB PO SCH (16:00)
[2018-04-09] MEDS ORDERED: FUROSEMIDE 20 MG TAB PO SCH (09:00)
[2018-04-09] MEDS ORDERED: LEVOFLOXACIN 250 MG TAB PO SCH (09:00)
== END 2018-04-08 17:20 | disposition home or self-care (01) | DRG 392 ==
LOC: EC 07:31 → 3SUR 10:21 → OBSVTOIN 04-08 09:18
PROVIDERS: ADMIT Internal Medicine; ATTEND Internal Medicine
DX: K57.32 Diverticulitis of large intestine without perforation or abscess without bleeding (principal); N39.0 Urinary tract infection, site not specified; D50.9 Iron deficiency anemia, unspecified; E03.9 Hypothyroidism, unspecified; N18.3 Chronic kidney disease, stage 3 (moderate); E87.6 Hypokalemia; I12.9 Hypertensive chronic kidney disease with stage 1 through stage 4 chronic kidney disease, or unspecified chronic kidney disease; B96.1 Klebsiella pneumoniae [K. pneumoniae] as the cause of diseases classified elsewhere; E78.5 Hyperlipidemia, unspecified; F32.9 Major depressive disorder, single episode, unspecified; F41.0 Panic disorder [episodic paroxysmal anxiety]; H40.9 Unspecified glaucoma; M54.5 Low back pain; K44.9 Diaphragmatic hernia without obstruction or gangrene; M19.90 Unspecified osteoarthritis, unspecified site; Z96.653 Presence of artificial knee joint, bilateral; Z79.899 Other long term (current) drug therapy; Z95.2 Presence of prosthetic heart valve; Z79.890 Hormone replacement therapy; Z87.11 Personal history of peptic ulcer disease; Z79.82 Long term (current) use of aspirin; Z82.49 Family history of ischemic heart disease and other diseases of the circulatory system; Z90.49 Acquired absence of other specified parts of digestive tract
CPT/HCPCS: 36415; 74176; 74177; 80053; 81003; 82728; 83540; 83550; 83605; 83690; 85025; 85610; 87077; 87086; 87186; 93005; 96365; 96375; 99285

== ENCOUNTER 2020-06-15 14:46 | Observation (INO) | payer MEDICARE ==
--- NOTE | 2020-06-15 15:10 | ED ---
SOB HPI - General Chief Complaint: Shortness of Breath Stated Complaint: WEAK Source: patient, EMS Mode of arrival: EMS Limitations: no limitations - History of Present Illness Initial Comments: Patient is an 89-year-old female with past medical history of dementia, hyperlipidemia and hypertension who presents to the emergency department with reported rapid and shallow breathing. She does arrive from [facility]. Staff was concerned that the patient was breathing fast. The patient cannot provide a history due to her dementia. Per staff she is at her baseline. She denies having any chest pain, fevers or chills. No cough. Denies any abdominal pain or changes in her bowel or bladder habits. The remainder of the HPI is limited because of the patient's demented state - Related Data Home Medications Medication Instructions Recorded Confirmed Furosemide [Lasix] 20 mg PO DAILY 01/31/14 06/15/20 Latanoprost Ophth [Xalatan 0.005%] 1 drop BOTH EYES HS 01/31/14 06/15/20 Levothyroxine Sodium [Synthroid] 75 mcg PO DAILY 04/16/14 06/15/20 Loperamide [Imodium] 2 - 4 mg PO QID PRN 04/16/14 06/15/20 Ergocalciferol [Vitamin D2 50,000 unit PO TH 04/05/18 06/15/20 (DRISDOL)] Acetaminophen Tab [Tylenol Tab] 1,000 mg PO Q4-6H PRN 06/15/20 06/15/20 Azithromycin [Zithromax] 500 mg PO ONCE PRN 06/15/20 06/15/20 Bisacodyl 5 mg PO DAILY PRN 06/15/20 06/15/20 Calcium Polycarbophil [Fiber-Lax] 625 mg PO DAILY 06/15/20 06/15/20 Cyanocobalamin (Vitamin B-12) 1,000 mcg PO DAILY 06/15/20 06/15/20 [Vitamin B-12] Divalproex Sodium [Depakote 125 mg PO HS 06/15/20 06/15/20 Sprinkle] Ferrous Sulfate [Iron (65 MG 325 mg PO DAILY 06/15/20 06/15/20 Elemental)] Guaifen/Dextromethorphan/PE 20 ml PO Q4H PRN 06/15/20 06/15/20 [Mucinex Fast-Max Congest-Cough] LORazepam [Ativan] 0.5 mg PO DAILY 06/15/20 06/15/20 LORazepam [Ativan] 0.5 mg PO DAILY PRN 06/15/20 06/15/20 Allergies Allergy/AdvReac Type Severity Reaction Status Date / Time amoxicillin [From Augmentin] Allergy Unknown Verified 06/15/20 19:08 clavulanic acid Allergy Unknown Verified 06/15/20 19:08 [From Augmentin] codeine Allergy Rash/Hives Verified 06/15/20 19:08 pravastatin [From Pravachol] Allergy Unknown Verified 06/15/20 19:08 ramipril [From Altace] Allergy Unknown, Verified 06/15/20 19:08 SNEEZING RUNNY NOSE Review of Systems ROS Statement: Those systems with pertinent positive or pertinent negative responses have been documented in the HPI. ROS Other: All systems not noted in ROS Statement are negative. Past Medical History Past Medical History: Eye Disorder, Hyperlipidemia, Hypertension, Mitral Valve Prolapse (MVP), Osteoarthritis (OA), Thyroid Disorder Additional Past Medical History / Comment(s): HX OF ANEMIA, ULCER, GLAUCOMA, HX OF low back pain, HX STATES DIVERTICULOSIS AND HIATAL HERNIA, PT NOT AWARE History of Any Multi-Drug Resistant Organisms: None Reported Past Surgical History: Adenoidectomy, Cardiac Valve Replacement, Cholecystectomy, Joint Replacement, Orthopedic Surgery, Tonsillectomy Additional Past Surgical History / Comment(s): BILAT CATARACT, MITRAL VALVE REPLACED. BILAT KNEE REPLACEMENT. Epidural pain injectionsl x 3. Past Anesthesia/Blood Transfusion Reactions: No Reported Reaction Additional Past Anesthesia/Blood Transfusion Reaction / Comment(s): Pt has recie tamera blood with no adverse reaction. Past Psychological History: Anxiety, Depression, Panic Disorder Smoking Status: Never smoker Past Alcohol Use History: Occasional Past Drug Use History: None Reported - Past Family History Father Family Medical History: Pneumonia Additional Family Medical History / Comment(s): Father was healthy. He of pneumonia at age 81yrs Mother Family Medical History: Congestive Heart Failure (CHF) Additional Family Medical History / Comment(s): Mother had low blood pressure. She had a cholecystectomy. She at age 85yrs. General Exam Limitations: no limitations Course Vital Signs 06/15/20 06/15/20 06/15/20 14:55 16:18 16:20 Temperature 98.6 F Pulse Rate 91 92 Respiratory 28 H 32 H Rate Blood Pressure 134/74 131/79 O2 Sat by Pulse 96 95 99 Oximetry 06/15/20 06/15/20 06/15/20 16:21 16:30 17:00 Temperature Pulse Rate 93 89 90 Respiratory 34 H 32 H 30 H Rate Blood Pressure 131/79 139/80 O2 Sat by Pulse 98 100 100 Oximetry 06/15/20 06/15/20 06/15/20 17:30 18:00 19:00 Temperature Pulse Rate 90 88 94 Respiratory 32 H 30 H 28 H Rate Blood Pressure 144/76 144/76 144/80 O2 Sat by Pulse 95 96 98 Oximetry Medical Decision Making - Medical Decision Making Upon arrival the patient is placed into room 3. A thorough history and physical exam was performed. Patient is tachypneic at this time. Breath sounds are clear. Laboratory studies were conducted and the patient went for a chest x- ray. X-rays is remarkable for white count of 14.6. D-dimer 2.12. Urinalysis is grossly positive for a urinary tract infection. Valproic acid level 22.7. Chest x-ray did not demonstrate any acute intrathoracic process. Because of the patient's elevated d-dimer she is sent over for a chest CT which demonstrates mild fibrotic changes and subsegmental atelectasis with no evidence of pulmonary embolism. Large hiatal hernia. I discussed results with the patient. I did recommend hospital admission for IV antibiotics for her urinary tract infection. Patient agreed to this. I discussed the case with Dr. Mosley who accepted admission. Patient was given a dose of Rocephin. We will swab her for Covid as she does reside in a community setting. Patient remained in stable condition awaiting a bed on the floor - Lab Data Result diagrams: 06/15/20 15:31 06/15/20 15:31 Lab Results 06/15/20 06/15/20 06/15/20 Range/Units 15:31 15:31 15:31 WBC 14.6 H (3.8-10.6) k/uL RBC 4.80 (3.80-5.40) m/uL Hgb 12.8 (11.4-16.0) gm/dL Hct 40.4 (34.0-46.0) % MCV 84.2 (80.0-100.0) fL MCH 26.7 (25.0-35.0) pg MCHC 31.7 (31.0-37.0) g/dL RDW 12.8 (11.5-15.5) % Plt Count 354 (150-450) k/uL Neutrophils % 83 % Lymphocytes % 7 % Monocytes % 6 % Eosinophils % 1 % Basophils % 1 % Neutrophils # 12.1 H (1.3-7.7) k/uL Lymphocytes # 1.1 (1.0-4.8) k/uL Monocytes # 0.8 (0-1.0) k/uL Eosinophils # 0.2 (0-0.7) k/uL Basophils # 0.2 (0-0.2) k/uL PT 10.0 (9.0-12.0) sec INR 1.0 (<1.2) APTT 21.3 L (22.0-30.0) sec D-Dimer 2.12 H (<0.60) mg/L FEU Sodium 138 (137-145) mmol/L Potassium 4.1 (3.5-5.1) mmol/L Chloride 104 (98-107) mmol/L Carbon Dioxide 25 (22-30) mmol/L Anion Gap 9 mmol/L BUN 22 H (7-17) mg/dL Creatinine 1.18 H (0.52-1.04) mg/dL Est GFR (CKD-EPI)AfAm 48 (>60 ml/min/1.73 sqM) Est GFR (CKD-EPI)NonAf 42 (>60 ml/min/1.73 sqM) Glucose 111 H (74-99) mg/dL Plasma Lactic Acid Branden (0.7-2.0) mmol/L Calcium 9.0 (8.4-10.2) mg/dL Total Bilirubin 0.5 (0.2-1.3) mg/dL AST 33 (14-36) U/L ALT 14 (4-34) U/L Alkaline Phosphatase 69 (38-126) U/L Creatine Kinase 92 (30-135) U/L Troponin I (0.000-0.034) ng/mL NT-Pro-B Natriuret Pep pg/mL Total Protein 6.8 (6.3-8.2) g/dL Albumin 3.7 (3.5-5.0) g/dL Urine Color Urine Appearance (Clear) Urine pH (5.0-8.0) Ur Specific Gordon (1.001-1.035) Urine Protein (Negative) Urine Glucose (UA) (Negative) Urine Ketones (Negative) Urine Blood (Negative) Urine Nitrite (Negative) Urine Bilirubin (Negative) Urine Urobilinogen (<2.0) mg/dL Ur Leukocyte Esterase (Negative) Urine RBC (0-5) /hpf Urine WBC (0-5) /hpf Urine WBC Clumps (None) /hpf Ur Squamous Epith Cells (0-4) /hpf Urine Bacteria (None) /hpf Valproic Acid 22.7 ug/mL 06/15/20 06/15/20 06/15/20 Range/Units 15:31 15:31 15:31 WBC (3.8-10.6) k/uL RBC (3.80-5.40) m/uL Hgb (11.4-16.0) gm/dL Hct (34.0-46.0) % MCV (80.0-100.0) fL MCH (25.0-35.0) pg MCHC (31.0-37.0) g/dL RDW (11.5-15.5) % Plt Count (150-450) k/uL Neutrophils % % Lymphocytes % % Monocytes % % Eosinophils % % Basophils % % Neutrophils # (1.3-7.7) k/uL Lymphocytes # (1.0-4.8) k/uL Monocytes # (0-1.0) k/uL Eosinophils # (0-0.7) k/uL Basophils # (0-0.2) k/uL PT (9.0-12.0) sec INR (<1.2) APTT (22.0-30.0) sec D-Dimer (<0.60) mg/L FEU Sodium (137-145) mmol/L Potassium (3.5-5.1) mmol/L Chloride (98-107) mmol/L Carbon Dioxide (22-30) mmol/L Anion Gap mmol/L BUN (7-17) mg/dL Creatinine (0.52-1.04) mg/dL Est GFR (CKD-EPI)AfAm (>60 ml/min/1.73 sqM) Est GFR (CKD-EPI)NonAf (>60 ml/min/1.73 sqM) Glucose (74-99) mg/dL Plasma Lactic Acid Branden 1.3 (0.7-2.0) mmol/L Calcium (8.4-10.2) mg/dL Total Bilirubin (0.2-1.3) mg/dL AST (14-36) U/L ALT (4-34) U/L Alkaline Phosphatase (38-126) U/L Creatine Kinase (30-135) U/L Troponin I <0.012 (0.000-0.034) ng/mL NT-Pro-B Natriuret Pep 2140 pg/mL Total Protein (6.3-8.2) g/dL Albumin (3.5-5.0) g/dL Urine Color Urine Appearance (Clear) Urine pH (5.0-8.0) Ur Specific Gordon (1.001-1.035) Urine Protein (Negative) Urine Glucose (UA) (Negative) Urine Ketones (Negative) Urine Blood (Negative) Urine Nitrite (Negative) Urine Bilirubin (Negative) Urine Urobilinogen (<2.0) mg/dL Ur Leukocyte Esterase (Negative) Urine RBC (0-5) /hpf Urine WBC (0-5) /hpf Urine WBC Clumps (None) /hpf Ur Squamous Epith Cells (0-4) /hpf Urine Bacteria (None) /hpf Valproic Acid ug/mL 20 Range/Units 16:35 WBC (3.8-10.6) k/uL RBC (3.80-5.40) m/uL Hgb (11.4-16.0) gm/dL Hct (34.0-46.0) % MCV (80.0-100.0) fL MCH (25.0-35.0) pg MCHC (31.0-37.0) g/dL RDW (11.5-15.5) % Plt Count (150-450) k/uL Neutrophils % % Lymphocytes % % Monocytes % % Eosinophils % % Basophils % % Neutrophils # (1.3-7.7) k/uL Lymphocytes # (1.0-4.8) k/uL Monocytes # (0-1.0) k/uL Eosinophils # (0-0.7) k/uL Basophils # (0-0.2) k/uL PT (9.0-12.0) sec INR (<1.2) APTT (22.0-30.0) sec D-Dimer (<0.60) mg/L FEU Sodium (137-145) mmol/L Potassium (3.5-5.1) mmol/L Chloride (98-107) mmol/L Carbon Dioxide (22-30) mmol/L Anion Gap mmol/L BUN (7-17) mg/dL Creatinine (0.52-1.04) mg/dL Est GFR (CKD-EPI)AfAm (>60 ml/min/1.73 sqM) Est GFR (CKD-EPI)NonAf (>60 ml/min/1.73 sqM) Glucose (74-99) mg/dL Plasma Lactic Acid Branden (0.7-2.0) mmol/L Calcium (8.4-10.2) mg/dL Total Bilirubin (0.2-1.3) mg/dL AST (14-36) U/L ALT (4-34) U/L Alkaline Phosphatase (38-126) U/L Creatine Kinase (30-135) U/L Troponin I (0.000-0.034) ng/mL NT-Pro-B Natriuret Pep pg/mL Total Protein (6.3-8.2) g/dL Albumin (3.5-5.0) g/dL Urine Color Yellow Urine Appearance Turbid H (Clear) Urine pH 6.0 (5.0-8.0) Ur Specific Gordon 1.019 (1.001-1.035) Urine Protein 1+ H (Negative) Urine Glucose (UA) Negative (Negative) Urine Ketones Negative (Negative) Urine Blood Moderate H (Negative) Urine Nitrite Negative (Negative) Urine Bilirubin Negative (Negative) Urine Urobilinogen <2.0 (<2.0) mg/dL Ur Leukocyte Esterase Large H (Negative) Urine RBC 14 H (0-5) /hpf Urine WBC >182 H (0-5) /hpf Urine WBC Clumps Many H (None) /hpf Ur Squamous Epith Cells 2 (0-4) /hpf Urine Bacteria Many H (None) /hpf Valproic Acid ug/mL - EKG Data EKG Comments: EKG demonstrates normal sinus rhythm with a ventricular rate of 90. NV interval 144. QRS 90. QTC of 486. Some ST depression in 1, aVL as well as V4 through V6. No acute ST segment elevations Disposition Clinical Impression: Tachypnea, Acute UTI Disposition: ADMITTED IP TO THIS HOSP Condition: Stable Is patient prescribed a controlled substance at d/c from ED?: No Decision to Admit Reason: Admit from EC Decision Date: 06/15/20 Decision Time: 19:04
[2020-06-15 15:52] LABS: Basophils # (A) 0.2 k/uL (0-0.2); Basophils % (A) 1 %; Eosinophils # (A) 0.2 k/uL (0-0.7); Eosinophils % (A) 1 %; HCT 40.4 % (34.0-46.0); HGB 12.8 gm/dL (11.4-16.0); Lymphocytes # (A) 1.1 k/uL (1.0-4.8); Lymphocytes % (A) 7 %; MCH 26.7 pg (25.0-35.0); MCHC 31.7 g/dL (31.0-37.0); MCV 84.2 fL (80.0-100.0); Mean Platelet Volume 6.6; Monocytes # (A) 0.8 k/uL (0-1.0); Monocytes % (A) 6 %; Neutrophils # (A) 12.1 k/uL (1.3-7.7); Neutrophils % (A) 83 %; Platelet Count 354 k/uL (150-450); RDW 12.8 % (11.5-15.5); WBC 14.6 k/uL (3.8-10.6)
[2020-06-15 16:04] LABS: Albumin 3.7 g/dL (3.5-5.0); Potassium 4.1 mmol/L (3.5-5.1); Total Bilirubin 0.5 mg/dL (0.2-1.3); Total Protein 6.8 g/dL (6.3-8.2)
[2020-06-15 16:10] LABS: Valproic Acid (Depakene) 22.7 ug/mL
--- NOTE | 2020-06-15 16:20 | XR ---
EXAMINATION TYPE: XR chest 2V DATE OF EXAM: 06/15/2020 COMPARISON: 05/05/2014 HISTORY: Chest pain TECHNIQUE: 2 views FINDINGS: There is moderate hiatal hernia. Lungs are clear of consolidation. There is no heart failur e. There are sternal wires. Heart size is fairly normal. IMPRESSION: No acute lung disease. Inspiration appears decreased compared to old exam.
[2020-06-15 16:27] LABS: Partial Thromboplastin Time 21.3 sec (22.0-30.0)
[2020-06-15 16:31] LABS: D-Dimer 2.12 mg/L FEU (<0.60)
[2020-06-15 17:11] LABS: Appearance,Urine Turbid (Clear); Bacteria,Urine Many /hpf; Bilirubin,Urine Negative (Negative); Blood,Urine Moderate (Negative); Color,Urine Yellow; Glucose,Urine (UA) Negative (Negative); Ketones,Urine Negative (Negative); Leukocyte Esterase,Urine Large (Negative); Nitrite,Urine Negative (Negative); Protein,Urine 1+ (Negative); RBC,Urine 14 /hpf (0-5); Specific Gravity,Urine 1.019 (1.001-1.035); Squamous Epithelial Cell,Urine 2 /hpf (0-4); Urobilinogen,Urine <2.0 mg/dL (<2.0); WBC,Urine >182 /hpf (0-5)
[2020-06-15] MEDS ORDERED: cefTRIAXone IN SWFI 1,000 MG/10 ML SYRINGE IVP STA (17:48)
--- NOTE | 2020-06-15 18:43 | CT ---
EXAMINATION TYPE: CT chest angio for PE DATE OF EXAM: 06/15/2020 COMPARISON: None HISTORY: SOB, ELEVATED D-DIMER CT DLP: 287.6 mGycm Automated exposure control for dose reduction was used. CONTRAST: Performed with IV Contrast, patient injected with 80 mL of Isovue 370. Images obtained from the thoracic inlet to the diaphragm with IV contrast and 3-D post processed imag es. Exam limited slightly by motion. There is some mild scarring and subsegmental atelectasis at the lung bases. There is moderate-sized hiatal hernia. Heart size is normal. There is no pericardial effusion . There is no pleural effusion. There are no hilar masses. There is no mediastinal adenopathy. Thoracic aorta appears intact. There i s no sign of aneurysm or dissection. Ascending aorta measures 3.2 cm. There is normal contrast opacification of the pulmonary arteries. There are no filling defects. Thoracic spine is intact. I see no bony destructive process. There are sternal wires. The ribs appear intact. IMPRESSION: Mild fibrotic changes and subsegmental atelectasis at the lung bases. No evidence of pulmonary embolism. Large hiatal hernia with intrathoracic stomach.
[2020-06-15] MEDS ORDERED: NALOXONE 0.4 MG/ML 1 ML VIAL IV PRN (19:04)
[2020-06-15] MEDS ORDERED: LORazepam 1 MG TAB PO STA (19:07)
[2020-06-15] MEDS: SODIUM CHLORIDE 0.9% 1,000 ML IV SCH (19:41)
[2020-06-15] MEDS ORDERED: LORazepam 2 MG/ML INJ IV PRN (20:18)
[2020-06-15] MEDS ORDERED: DEXTROMETHORPHAN PO PRN (21:35)
[2020-06-15] MEDS ORDERED: [UNRECOGNIZED DRUG - OTHER] PO PRN (21:35)
[2020-06-15] MEDS ORDERED: ACETAMINOPHEN TAB 500 MG TAB PO PRN (21:35)
[2020-06-15] MEDS ORDERED: GUAIFEN PO PRN (21:35)
[2020-06-15] MEDS: LATANOPROST 0.005% OPHTH DROPS 2.5 ML BTL BOTH EYES SCH (22:54)
[2020-06-15] MEDS: DIVALPROEX SPRINKLE 125 MG CAP.SPRINK PO SCH (22:54)
[2020-06-16] MEDS: LEVOTHYROXINE 75 MCG TAB PO SCH (05:33)
[2020-06-16 06:47] LABS: Basophils # (A) 0.1 k/uL (0-0.2); Basophils % (A) 1 %; Eosinophils # (A) 0.2 k/uL (0-0.7); Eosinophils % (A) 2 %; HCT 34.5 % (34.0-46.0); HGB 10.9 gm/dL (11.4-16.0); Lymphocytes # (A) 1.4 k/uL (1.0-4.8); Lymphocytes % (A) 12 %; MCH 26.3 pg (25.0-35.0); MCHC 31.7 g/dL (31.0-37.0); Mean Platelet Volume 6.4; Monocytes # (A) 0.9 k/uL (0-1.0); Monocytes % (A) 7 %; Neutrophils # (A) 9.4 k/uL (1.3-7.7); Neutrophils % (A) 77 %; Platelet Count 323 k/uL (150-450); RBC 4.15 m/uL (3.80-5.40); RDW 12.9 % (11.5-15.5); WBC 12.3 k/uL (3.8-10.6)
[2020-06-16] MEDS: FUROSEMIDE 20 MG TAB PO SCH (07:04)
[2020-06-16] MEDS: SODIUM CHLORIDE 0.9% 1,000 ML IV SCH (07:05)
[2020-06-16] MEDS: ALBUTEROL NEBULIZED 2.5 MG/3 ML INHALATION PRN ×2 (08:16→12:11)
[2020-06-16 09:25] LABS: African American GFR (CKD) 52.3 (60.0-200.0); Anion Gap 7.7 mmol/L (4.00-12.00); BUN/Creat Ratio 20.91 Ratio (12.00-20.00); Calcium 8.8 mg/dL (8.7-10.3); Carbon Dioxide 27.3 mmol/L (21.6-31.8); Non-African American GFR(CKD) 45.1 (60.0-200.0); Potassium 3.7 mmol/L (3.5-5.5)
[2020-06-16] MEDS: ENOXAPARIN 40 MG/0.4 ML SYRINGE SQ SCH (09:45)
--- NOTE | 2020-06-16 11:11 | P.CRDCN ---
<Jackelyn Tapia A - Last Filed: 06/16/20 11:03> History of Present Illness Consult date: 06/16/20 Reason for Consult (text): shortness of breath History of present illness: History of present illness: This is an 89-year-old female patient with past medical history of hypertension, hyperlipidemia, mitral valve replacement, dementia. Patient is unable to provide history. According to the chart, patient was having fast and shallow at [facility]. Patient is able to deny having any shortness of breath or chest pain. She denies any lightheadedness. Her nurse this morning noticed that she had some wheezing this morning which improved with an updraft treatment. Patient denies any history of smoking, asthma or heart failure. She is unable to identify if she has seen a program and research coordinator. Patient presented to [facility] emergency center and found to be afebrile, heart rate 91, blood pressure 134/74, pulse ox 96%. EKG is a sinus rhythm with left ventricular hypertrophy. WBC 14.6, hemoglobin 12.8, platelet count 354. D-dimer 2.12. Urinalysis positive for urinary tract infection. Valproic acid 22.7. Troponin 0.012, proBNP 2140. Lactic acid 1.3. Chest x-ray was negative for acute intrathoracic process. CAT scan angiography of the chest revealed mild fibrotic changes and subsegmental atelectasis with no evidence of pulmonary embolism. Large hiatal hernia. Patient was started on IV antibiotics and admitted to the [facility] floor. Review Of Systems: Constitutional: No fever, no chills. No weakness, fatigue or lethargy. EENT: No headache. No dizziness. Lungs: No shortness of breath, denies cough, no sputum production. Reported wheezing. Cardiovascular: No chest pain, no lower extremity edema. No palpitations. No lightheadedness or dizziness. No syncopal episodes. Abdominal: No abdominal pain. No nausea, vomiting. No diarrhea. Musculoskeletal: No myalgias. Reported muscle weakness, no gait dysfunction, no frequent falls. Integumentary: No wounds. No rash or pruritus. Neurologic: No aphasia. No facial droop. No change in mentation. Physical examination: Gen: This is an 89-year-old female. Patient is resting in bed and appears to be comfortable and in no acute distress. No respiratory distress is noted. VS: Afebrile, heart rate 80, respiratory rate 32, blood pressure 155/86, pulse ox 97% on room air. HEENT: Head is atraumatic, normocephalic. Pupils equal, round. Sclerae is anicteric. NECK: Supple. No JVD. No lymphadenopathy. No thyromegaly. LUNGS: Scattered expiratory wheeze. No intercostal retractions. HEART: Regular rate and rhythm. Systolic murmur. ABDOMEN: Soft. Bowel sounds are present. No masses. No tenderness. EXTREMITIES: No pedal edema. No calf tenderness. NEUROLOGICAL: Patient is awake, alert and oriented x3. Cranial nerves 2 through 12 are grossly intact. Assessment: Tachypnea secondary to reactive airway/wheezing Hypertension Hyperlipidemia Dementia Plan: Agree with albuterol nebulizer treatments Continue Lasix 20 mg oral daily and discontinue IV fluids COVID-19 testing Obtain 2-D echocardiogram and Doppler study to assess cardiac structure and function Further recommendations to follow based upon clinical course Thank you kindly for this consultation. Nurse practitioner note has been reviewed, I agree with documented findings and plan of care. Patient was seen and examined. Past Medical History Past Medical History: Dementia, Eye Disorder, Hyperlipidemia, Hypertension, Mitral Valve Prolapse (MVP), Osteoarthritis (OA), Thyroid Disorder Additional Past Medical History / Comment(s): HX OF ANEMIA, ULCER, GLAUCOMA, HX OF low back pain, HX STATES DIVERTICULOSIS AND HIATAL HERNIA, sob, cough History of Any Multi-Drug Resistant Organisms: None Reported Past Surgical History: Adenoidectomy, Cardiac Valve Replacement, Cholecystectomy, Joint Replacement, Orthopedic Surgery, Tonsillectomy Additional Past Surgical History / Comment(s): BILAT CATARACT, MITRAL VALVE REPL ACED. BILAT KNEE REPLACEMENT. Epidural pain injectionsl x 3. Past Anesthesia/Blood Transfusion Reactions: No Reported Reaction Additional Past Anesthesia/Blood Transfusion Reaction / Comment(s): Pt has recieved blood with no adverse reaction. Past Psychological History: Anxiety, Depression, Panic Disorder Additional Psychological History / Comment(s): PT STATES NO CURRENT ISSUES Smoking Status: Never smoker Past Alcohol Use History: Occasional Additional Past Alcohol Use History / Comment(s): Pt may drink 2-3 drinks a month. Past Drug Use History: None Reported - Past Family History Father Family Medical History: Pneumonia Additional Family Medical History / Comment(s): Father was healthy. He of pneumonia at age 81yrs Mother Family Medical History: Congestive Heart Failure (CHF) Additional Family Medical History / Comment(s): Mother had low blood pressure. She had a cholecystectomy. She at age 85yrs. Medications and Allergies Home Medications Medication Instructions Recorded Confirmed Type Furosemide [Lasix] 20 mg PO DAILY 01/31/14 06/15/20 History Latanoprost Ophth [Xalatan 0.005%] 1 drop BOTH EYES HS 01/31/14 06/15/20 History Levothyroxine Sodium [Synthroid] 75 mcg PO DAILY 04/16/14 06/15/20 History Loperamide [Imodium] 2 - 4 mg PO QID PRN 04/16/14 06/15/20 History Ergocalciferol [Vitamin D2 50,000 unit PO TH 04/05/18 06/15/20 History (DRISDOL)] Acetaminophen Tab [Tylenol Tab] 1,000 mg PO Q4-6H PRN 06/15/20 06/15/20 History Azithromycin [Zithromax] 500 mg PO ONCE PRN 06/15/20 06/15/20 History Bisacodyl 5 mg PO DAILY PRN 06/15/20 06/15/20 History Calcium Polycarbophil [Fiber-Lax] 625 mg PO DAILY 06/15/20 06/15/20 History Cyanocobalamin (Vitamin B-12) 1,000 mcg PO DAILY 06/15/20 06/15/20 History [Vitamin B-12] Divalproex Sodium [Depakote 125 mg PO HS 06/15/20 06/15/20 History Sprinkle] Ferrous Sulfate [Iron (65 MG 325 mg PO DAILY 06/15/20 06/15/20 History Elemental)] Guaifen/Dextromethorphan/PE 20 ml PO Q4H PRN 06/15/20 06/15/20 History [Mucinex Fast-Max Congest-Cough] LORazepam [Ativan] 0.5 mg PO DAILY 06/15/20 06/15/20 History LORazepam [Ativan] 0.5 mg PO DAILY PRN 06/15/20 06/15/20 History Allergies Allergy/AdvReac Type Severity Reaction Status Date / Time amoxicillin [From Augmentin] Allergy Unknown Verified 06/15/20 19:08 clavulanic acid Allergy Unknown Verified 06/15/20 19:08 [From Augmentin] codeine Allergy Rash/Hives Verified 06/15/20 19:08 pravastatin [From Pravachol] Allergy Unknown Verified 06/15/20 19:08 ramipril [From Altace] Allergy Unknown, Verified 06/15/20 19:08 SNEEZING RUNNY NOSE Physical Exam Vitals: Vital Signs Temp Pulse Pulse Resp BP BP Pulse Ox 06/16/20 08:29 88 06/16/20 08:19 80 06/16/20 07:00 98.4 F 80 32 H 155/86 97 06/16/20 03:05 97.5 F L 70 22 132/74 96 06/15/20 22:00 99 F 93 18 121/74 97 06/15/20 19:00 94 28 H 144/80 98 06/15/20 18:00 88 30 H 144/76 96 06/15/20 17:30 90 32 H 144/76 95 06/15/20 17:00 90 30 H 139/80 100 06/15/20 16:30 89 32 H 100 06/15/20 16:21 93 34 H 131/79 98 06/15/20 16:20 99 06/15/20 16:18 92 32 H 131/79 95 06/15/20 14:55 98.6 F 91 28 H 134/74 96 Intake and Output 06/15/20 06/16/20 06/16/20 22:59 06:59 14:59 Intake Total 100 100 Balance 100 100 Intake: Oral 100 100 Other: # Voids 2 1 Weight 68.946 kg Results 06/16/20 06:13 06/16/20 06:12 Cardiac Enzymes 06/15/20 06/15/20 Range/Units 15:31 15:31 AST 33 (14-36) U/L Troponin I <0.012 (0.000-0.034) ng/mL Coagulation 06/15/20 Range/Units 15:31 PT 10.0 (9.0-12.0) sec APTT 21.3 L (22.0-30.0) sec CBC 06/15/20 06/16/20 Range/Units 15:31 06:13 WBC 14.6 H 12.3 H (3.8-10.6) k/uL RBC 4.80 4.15 (3.80-5.40) m/uL Hgb 12.8 10.9 L (11.4-16.0) gm/dL Hct 40.4 34.5 (34.0-46.0) % Plt Count 354 323 (150-450) k/uL Comprehensive Metabolic Panel 06/15/20 06/16/20 Range/Units 15:31 06:12 Sodium 138 140 (137-145) mmol/L Potassium 4.1 3.7 (3.5-5.1) mmol/L Chloride 104 105 (98-107) mmol/L Carbon Dioxide 25 27.3 (22-30) mmol/L BUN 22 H 23.0 (7-17) mg/dL Creatinine 1.18 H 1.1 (0.52-1.04) mg/dL Glucose 111 H 89 (74-99) mg/dL Calcium 9.0 8.8 (8.4-10.2) mg/dL AST 33 (14-36) U/L ALT 14 (4-34) U/L Alkaline Phosphatase 69 (38-126) U/L Total Protein 6.8 (6.3-8.2) g/dL Albumin 3.7 (3.5-5.0) g/dL Current Medications Generic Name Dose Route Start Last Admin Trade Name Freq PRN Reason Stop Dose Admin Acetaminophen 1,000 mg 06/15/20 21:35 Acetaminophen Tab 500 Mg Tab PO Q6H PRN Pain Albuterol Sulfate 2.5 mg 06/16/20 07:25 06/16/20 08:16 Albuterol Nebulized 2.5 Mg/3 Ml INHALATION 2.5 mg RT-QID PRN Administration Shortness Of Breath Or Wheezing Divalproex Sodium 125 mg 06/15/20 21:45 06/15/20 22:54 Divalproex Sprinkle 125 Mg Cap.Sprink PO 125 mg HS TWAN Administration Enoxaparin Sodium 40 mg 06/16/20 09:00 06/16/20 09:45 Enoxaparin 40 Mg/0.4 Ml Syringe SQ 40 mg DAILY TWAN Administration Furosemide 20 mg 06/16/20 09:00 06/16/20 07:04 Furosemide 20 Mg Tab PO 20 mg DAILY TWAN Administration Sodium Chloride 1,000 mls @ 75 mls/hr 06/15/20 19:15 06/16/20 07:05 Saline 0.9% IV Not Given .[id number] TWAN Ceftriaxone Sodium 1 gm/ 50 mls @ 100 mls/hr 06/16/20 09:00 06/16/20 08:51 Sodium Chloride IVPB 100 mls/hr Q24HR TWAN Administration Latanoprost 1 drops 06/15/20 21:45 06/15/20 22:54 Latanoprost 0.005% Ophth Drops 2.5 Ml Btl BOTH EYES 1 drops HS TWAN Administration Levothyroxine Sodium 75 mcg 06/16/20 06:30 06/16/20 05:33 Levothyroxine 75 Mcg Tab PO 75 mcg DAILY@0630 TWAN Administration Lorazepam 1 mg 06/15/20 20:18 Lorazepam 2 Mg/Ml Inj IV Q3HR PRN Agitation Naloxone HCl 0.2 mg 06/15/20 19:04 Naloxone 0.4 Mg/Ml 1 Ml Vial IV Q2M PRN Opioid Reversal Intake and Output 06/15/20 06/16/20 06/16/20 22:59 06:59 14:59 Intake Total 100 100 Balance 100 100 Intake: Oral 100 100 Other: # Voids 2 1 Weight 68.946 kg 06/16/20 06:13 06/16/20 06:12 <Julio Daniels - Last Filed: 06/16/20 16:00> History of Present Illness History of present illness: Patient confused as to why she is here. She denies any chest pain or shortness breath currently however patient is a poor historian. We will check 2-D echo. Patient has sternotomy incision consistent with history of mitral valve replacement. ProBNP noted at 2140 and troponins negative. Continue with Lasix 20 mg daily. Julio Daniels DO Physical Exam Vitals: Vital Signs Temp Pulse Pulse Resp BP BP Pulse Ox 06/16/20 15:00 97.8 F 90 20 116/75 97 06/16/20 12:24 84 06/16/20 12:10 84 06/16/20 08:29 88 06/16/20 08:19 80 06/16/20 07:00 98.4 F 80 32 H 155/86 97 06/16/20 03:05 97.5 F L 70 22 132/74 96 06/15/20 22:00 99 F 93 18 121/74 97 06/15/20 19:00 94 28 H 144/80 98 06/15/20 18:00 88 30 H 144/76 96 06/15/20 17:30 90 32 H 144/76 95 06/15/20 17:00 90 30 H 139/80 100 06/15/20 16:30 89 32 H 100 06/15/20 16:21 93 34 H 131/79 98 06/15/20 16:20 99 06/15/20 16:18 92 32 H 131/79 95 Intake and Output 06/16/20 06/16/20 06/16/20 06:59 14:59 22:59 Intake Total 100 Balance 100 Intake: Oral 100 Other: # Voids 1 3 Results 06/16/20 06:13 06/16/20 06:12 Cardiac Enzymes 06/15/20 06/15/20 Range/Units 15:31 15:31 AST 33 (14-36) U/L Troponin I <0.012 (0.000-0.034) ng/mL Coagulation 06/15/20 Range/Units 15:31 PT 10.0 (9.0-12.0) sec APTT 21.3 L (22.0-30.0) sec CBC 06/16/20 Range/Units 06:13 WBC 12.3 H (3.8-10.6) k/uL RBC 4.15 (3.80-5.40) m/uL Hgb 10.9 L (11.4-16.0) gm/dL Hct 34.5 (34.0-46.0) % Plt Count 323 (150-450) k/uL Comprehensive Metabolic Panel 06/15/20 06/16/20 Range/Units 15:31 06:12 Sodium 138 140 (137-145) mmol/L Potassium 4.1 3.7 (3.5-5.1) mmol/L Chloride 104 105 (98-107) mmol/L Carbon Dioxide 25 27.3 (22-30) mmol/L BUN 22 H 23.0 (7-17) mg/dL Creatinine 1.18 H 1.1 (0.52-1.04) mg/dL Glucose 111 H 89 (74-99) mg/dL Calcium 9.0 8.8 (8.4-10.2) mg/dL AST 33 (14-36) U/L ALT 14 (4-34) U/L Alkaline Phosphatase 69 (38-126) U/L Total Protein 6.8 (6.3-8.2) g/dL Albumin 3.7 (3.5-5.0) g/dL Current Medications Generic Name Dose Route Start Last Admin Trade Name Freq PRN Reason Stop Dose Admin Acetaminophen 1,000 mg 06/15/20 21:35 Acetaminophen Tab 500 Mg Tab PO Q6H PRN Pain Albuterol Sulfate 2.5 mg 06/16/20 07:25 06/16/20 12:11 Albuterol Nebulized 2.5 Mg/3 Ml INHALATION 2.5 mg RT-QID PRN Administration Shortness Of Breath Or Wheezing Divalproex Sodium 125 mg 06/15/20 21:45 06/15/20 22:54 Divalproex Sprinkle 125 Mg Cap.Sprink PO 125 mg HS TWAN Administration Enoxaparin Sodium 40 mg 06/16/20 09:00 06/16/20 09:45 Enoxaparin 40 Mg/0.4 Ml Syringe SQ 40 mg DAILY TWAN Administration Furosemide 20 mg 06/16/20 09:00 06/16/20 07:04 Furosemide 20 Mg Tab PO 20 mg DAILY TWAN Administration Ceftriaxone Sodium 1 gm/ 50 mls @ 100 mls/hr 06/16/20 09:00 06/16/20 08:51 Sodium Chloride IVPB 100 mls/hr Q24HR TWAN Administration Latanoprost 1 drops 06/15/20 21:45 06/15/20 22:54 Latanoprost 0.005% Ophth Drops 2.5 Ml Btl BOTH EYES 1 drops HS TWAN Administration Levothyroxine Sodium 75 mcg 06/16/20 06:30 06/16/20 05:33 Levothyroxine 75 Mcg Tab PO 75 mcg DAILY@0630 TWAN Administration Lorazepam 1 mg 06/15/20 20:18 Lorazepam 2 Mg/Ml Inj IV Q3HR PRN Agitation Naloxone HCl 0.2 mg 06/15/20 19:04 Naloxone 0.4 Mg/Ml 1 Ml Vial IV Q2M PRN Opioid Reversal Intake and Output 06/16/20 06/16/20 06/16/20 06:59 14:59 22:59 Intake Total 100 Balance 100 Intake: Oral 100 Other: # Voids 1 3 06/16/20 06:13 06/16/20 06:12
--- NOTE | 2020-06-16 11:52 | P.CNPUL ---
History of Present Illness Consult date: 06/16/20 Chief complaint: Altered mentation History of present illness: This is a 89-year-old female patient who was hospitalized from [facility] because of an altered mentation. The patient was found to have some increased respiratory drive and breathing at a time of her admission. 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 No evidence of any pneumonia. Currently she is on room air oxygen. No significant cough sputum production or any chest tightness or wheezing. UA is positive for urinary tract infection. This is not unusual for this patient as the patient was hospitalized back in 2018 for the same. No aspiration despite the large hiatal hernia that was noted on the CAT scan of the chest. She is hemodynamically stable. She was started on IV R ocephin. White cell count is at 14.6. She has dementia and she is slow in answering questions. She denies any complaints. She has undergone the placement above replacement surgery and the patient has a large thoracotomy scar over the anterior chest. She has hypertension and hyperlipidemia. Review of Systems ROS unobtainable: due to mental status Constitutional: Reports weakness Eyes: bilateral blurred vision, bilateral decreased vision Ears: bilateral: decreased hearing Ears, nose, mouth and throat: Denies headache, Denies sore throat Breasts: absent: as per HPI, change in shape, gynecomastia, masses, nipple discharge, pain, skin changes, swelling Cardiovascular: Reports as per HPI Respiratory: Reports as per HPI Gastrointestinal: Reports as per HPI Genitourinary: Reports as per HPI, Reports urge incontinence Menstruation: Reports as per HPI Musculoskeletal: Reports as per HPI Musculoskeletal: absent: ankle pain, ankle stiffness, ankle swelling Integumentary: Reports as per HPI Neurological: Reports confusion, Reports memory loss Psychiatric: Reports as per HPI Endocrine: Reports as per HPI, Reports fatigue Hematologic/Lymphatic: Reports as per HPI Allergic/Immunologic: Reports as per HPI Past Medical History Past Medical History: Dementia, Eye Disorder, Hyperlipidemia, Hypertension, Mitral Valve Prolapse (MVP), Osteoarthritis (OA), Thyroid Disorder Additional Past Medical History / Comment(s): HX OF ANEMIA, ULCER, GLAUCOMA, HX OF low back pain, HX STATES DIVERTICULOSIS AND HIATAL HERNIA History of Any Multi-Drug Resistant Organisms: None Reported Past Surgical History: Adenoidectomy, Cardiac Valve Replacement, Cholecystectomy, Joint Replacement, Orthopedic Surgery, Tonsillectomy Additional Past Surgical History / Comment(s): BILAT CATARACT, MITRAL VALVE REPLACED. BILAT KNEE REPLACEMENT. Epidural pain injectionsl x 3. Past Anesthesia/Blood Transfusion Reactions: No Reported Reaction Additional Past Anesthesia/Blood Transfusion Reaction / Comment(s): Pt has recieved blood with no adverse reaction. Past Psychological History: Anxiety, Depression, Panic Disorder Additional Psychological History / Comment(s): PT STATES NO CURRENT ISSUES Smoking Status: Never smoker Past Alcohol Use History: Occasional Additional Past Alcohol Use History / Comment(s): Pt may drink 2-3 drinks a month. Past Drug Use History: None Reported - Past Family History Father Family Medical History: Pneumonia Additional Family Medical History / Comment(s): Father was healthy. He of pneumonia at age 81yrs Mother Family Medical History: Congestive Heart Failure (CHF) Additional Family Medical History / Comment(s): Mother had low blood pressure. She had a cholecystectomy. She at age 85yrs. Medications and Allergies Home Medications Medication Instructions Recorded Confirmed Type Furosemide [Lasix] 20 mg PO DAILY 01/31/14 06/15/20 History Latanoprost Ophth [Xalatan 0.005%] 1 drop BOTH EYES HS 01/31/14 06/15/20 History Levothyroxine Sodium [Synthroid] 75 mcg PO DAILY 04/16/14 06/15/20 History Loperamide [Imodium] 2 - 4 mg PO QID PRN 04/16/14 06/15/20 History Ergocalciferol [Vitamin D2 50,000 unit PO TH 04/05/18 06/15/20 History (DRISDOL)] Acetaminophen Tab [Tylenol Tab] 1,000 mg PO Q4-6H PRN 06/15/20 06/15/20 History Azithromycin [Zithromax] 500 mg PO ONCE PRN 06/15/20 06/15/20 History Bisacodyl 5 mg PO DAILY PRN 06/15/20 06/15/20 History Calcium Polycarbophil [Fiber-Lax] 625 mg PO DAILY 06/15/20 06/15/20 History Cyanocobalamin (Vitamin B-12) 1,000 mcg PO DAILY 06/15/20 06/15/20 History [Vitamin B-12] Divalproex Sodium [Depakote 125 mg PO HS 06/15/20 06/15/20 History Sprinkle] Ferrous Sulfate [Iron (65 MG 325 mg PO DAILY 06/15/20 06/15/20 History Elemental)] Guaifen/Dextromethorphan/PE 20 ml PO Q4H PRN 06/15/20 06/15/20 History [Mucinex Fast-Max Congest-Cough] LORazepam [Ativan] 0.5 mg PO DAILY 06/15/20 06/15/20 History LORazepam [Ativan] 0.5 mg PO DAILY PRN 06/15/20 06/15/20 History Allergies Allergy/AdvReac Type Severity Reaction Status Date / Time amoxicillin [From Augmentin] Allergy Unknown Verified 06/15/20 19:08 clavulanic acid Allergy Unknown Verified 06/15/20 19:08 [From Augmentin] codeine Allergy Rash/Hives Verified 06/15/20 19:08 pravastatin [From Pravachol] Allergy Unknown Verified 06/15/20 19:08 ramipril [From Altace] Allergy Unknown, Verified 06/15/20 19:08 SNEEZING RUNNY NOSE Physical Exam Vitals: Vital Signs Temp Pulse Pulse Resp BP BP Pulse Ox 06/16/20 08:29 88 06/16/20 08:19 80 06/16/20 07:00 98.4 F 80 32 H 155/86 97 06/16/20 03:05 97.5 F L 70 22 132/74 96 06/15/20 22:00 99 F 93 18 121/74 97 06/15/20 19:00 94 28 H 144/80 98 06/15/20 18:00 88 30 H 144/76 96 06/15/20 17:30 90 32 H 144/76 95 06/15/20 17:00 90 30 H 139/80 100 06/15/20 16:30 89 32 H 100 06/15/20 16:21 93 34 H 131/79 98 06/15/20 16:20 99 06/15/20 16:18 92 32 H 131/79 95 06/15/20 14:55 98.6 F 91 28 H 134/74 96 Intake and Output 06/15/20 06/16/20 06/16/20 22:59 06:59 14:59 Intake Total 100 100 Balance 100 100 Intake: Oral 100 100 Other: # Voids 2 1 Weight 68.946 kg Gen: This is an 89-year-old female. Patient is resting in bed and appears to be comfortable and in no acute distress. No respiratory distress is noted. VS: Afebrile, heart rate 80, respiratory rate 32, blood pressure 155/86, pulse ox 97% on room air. HEENT: Head is atraumatic, normocephalic. Pupils equal, round. Sclerae is anicteric. NECK: Supple. No JVD. No lymphadenopathy. No thyromegaly. LUNGS: Scattered expiratory wheeze. No intercostal retractions. HEART: Regular rate and rhythm. Systolic murmur. ABDOMEN: Soft. Bowel sounds are present. No masses. No tenderness. EXTREMITIES: No pedal edema. No calf tenderness. NEUROLOGICAL: Patient is awake, alert and oriented x3. Cranial nerves 2 through 12 are grossly intact. Results - Laboratory Findings CBC and BMP: 06/16/20 06:13 06/16/20 06:12 ABG WBC 12.3 k/uL (3.8-10.6) H 06/16/20 06:13 RBC 4.15 m/uL (3.80-5.40) 06/16/20 06:13 Hgb 10.9 gm/dL (11.4-16.0) L 06/16/20 06:13 Hct 34.5 % (34.0-46.0) 06/16/20 06:13 MCV 83.0 fL (80.0-100.0) 06/16/20 06:13 MCH 26.3 pg (25.0-35.0) 06/16/20 06:13 MCHC 31.7 g/dL (31.0-37.0) 06/16/20 06:13 RDW 12.9 % (11.5-15.5) 06/16/20 06:13 Plt Count 323 k/uL (150-450) 06/16/20 06:13 Neutrophils % 77 % 06/16/20 06:13 Lymphocytes % 12 % 06/16/20 06:13 Monocytes % 7 % 06/16/20 06:13 Eosinophils % 2 % 06/16/20 06:13 Basophils % 1 % 06/16/20 06:13 Neutrophils # 9.4 k/uL (1.3-7.7) H 06/16/20 06:13 Lymphocytes # 1.4 k/uL (1.0-4.8) 06/16/20 06:13 Monocytes # 0.9 k/uL (0-1.0) 06/16/20 06:13 Eosinophils # 0.2 k/uL (0-0.7) 06/16/20 06:13 Basophils # 0.1 k/uL (0-0.2) 06/16/20 06:13 PT 10.0 sec (9.0-12.0) 06/15/20 15:31 INR 1.0 (<1.2) 06/15/20 15:31 APTT 21.3 sec (22.0-30.0) L 06/15/20 15:31 D-Dimer 2.12 mg/L FEU (<0.60) H 06/15/20 15:31 Sodium 140 mmol/L (135-145) 06/16/20 06:12 Potassium 3.7 mmol/L (3.5-5.5) 06/16/20 06:12 Chloride 105 mmol/L (96-109) 06/16/20 06:12 Carbon Dioxide 27.3 mmol/L (21.6-31.8) 06/16/20 06:12 Anion Gap 7.70 mmol/L (4.00-12.00) 06/16/20 06:12 BUN 23.0 mg/dL (9.0-27.0) 06/16/20 06:12 Creatinine 1.1 mg/dL (0.6-1.5) 06/16/20 06:12 Est GFR (CKD-EPI)AfAm 52.3 (60.0-200.0) L 06/16/20 06:12 Est GFR (CKD-EPI)NonAf 45.1 (60.0-200.0) L 06/16/20 06:12 BUN/Creatinine Ratio 20.91 Ratio (12.00-20.00) H 06/16/20 06:12 Glucose 89 mg/dL (70-110) 06/16/20 06:12 Plasma Lactic Acid Branden 1.3 mmol/L (0.7-2.0) 06/15/20 15:31 Calcium 8.8 mg/dL (8.7-10.3) 06/16/20 06:12 Total Bilirubin 0.5 mg/dL (0.2-1.3) 06/15/20 15:31 AST 33 U/L (14-36) 06/15/20 15:31 ALT 14 U/L (4-34) 06/15/20 15:31 Alkaline Phosphatase 69 U/L (38-126) 06/15/20 15:31 Ammonia <9 umol/L (<30) 06/15/20 19:23 Creatine Kinase 92 U/L (30-135) 06/15/20 15:31 Troponin I <0.012 ng/mL (0.000-0.034) 06/15/20 15:31 NT-Pro-B Natriuret Pep 2140 pg/mL 06/15/20 15:31 Total Protein 6.8 g/dL (6.3-8.2) 06/15/20 15:31 Albumin 3.7 g/dL (3.5-5.0) 06/15/20 15:31 Urine Color Yellow 06/15/20 16:35 Urine Appearance Turbid (Clear) H 06/15/20 16:35 Urine pH 6.0 (5.0-8.0) 06/15/20 16:35 Ur Specific Christmas 1.019 (1.001-1.035) 06/15/20 16:35 Urine Protein 1+ (Negative) H 06/15/20 16:35 Urine Glucose (UA) Negative (Negative) 06/15/20 16:35 Urine Ketones Negative (Negative) 06/15/20 16:35 Urine Blood Moderate (Negative) H 06/15/20 16:35 Urine Nitrite Negative (Negative) 06/15/20 16:35 Urine Bilirubin Negative (Negative) 06/15/20 16:35 Urine Urobilinogen <2.0 mg/dL (<2.0) 06/15/20 16:35 Ur Leukocyte Esterase Large (Negative) H 06/15/20 16:35 Urine RBC 14 /hpf (0-5) H 06/15/20 16:35 Urine WBC >182 /hpf (0-5) H 06/15/20 16:35 Urine WBC Clumps Many /hpf (None) H 06/15/20 16:35 Ur Squamous Epith Cells 2 /hpf (0-4) 06/15/20 16:35 Urine Bacteria Many /hpf (None) H 06/15/20 16:35 Valproic Acid 22.7 ug/mL 06/15/20 15:31 PT/INR, D-dimer PT 10.0 sec (9.0-12.0) 06/15/20 15:31 INR 1.0 (<1.2) 06/15/20 15:31 D-Dimer 2.12 mg/L FEU (<0.60) H 06/15/20 15:31 Abnormal lab findings: Abnormal Labs 06/15/20 06/15/20 06/15/20 15:31 15:31 15:31 WBC 14.6 H Hgb Neutrophils # 12.1 H APTT 21.3 L D-Dimer 2.12 H BUN 22 H Creatinine 1.18 H Est GFR (CKD-EPI)AfAm Est GFR (CKD-EPI)NonAf BUN/Creatinine Ratio Glucose 111 H Urine Appearance Urine Protein Urine Blood Ur Leukocyte Esterase Urine RBC Urine WBC Urine WBC Clumps Urine Bacteria 06/15/20 06/16/20 06/16/20 16:35 06:12 06:13 WBC 12.3 H Hgb 10.9 L Neutrophils # 9.4 H APTT D-Dimer BUN Creatinine Est GFR (CKD-EPI)AfAm 52.3 L Est GFR (CKD-EPI)NonAf 45.1 L BUN/Creatinine Ratio 20.91 H Glucose Urine Appearance Turbid H Urine Protein 1+ H Urine Blood Moderate H Ur Leukocyte Esterase Large H Urine RBC 14 H Urine WBC >182 H Urine WBC Clumps Many H Urine Bacteria Many H - Diagnostic Findings CT scan - chest: image reviewed Assessment and Plan Plan: 1 UTI, possibly gram-negative currently on IV Rocephin 2 tachypnea probably related to underlying UTI/sepsis, and a CT angiogram showed no evidence of any pulmonary embolism and no evidence of any pneumonia or aspiration. There is chronic fibrotic changes in lung bases and the patient also has a large hiatal hernia. 3 hypertension 4 hyperlipidemia 5 dementia 6 history of mitral valve replacement 7 mild leukocytosis Plan Aspiration precautions No need for any pulmonary intervention this point in time Continue IV Rocephin Check UA and cultures Check blood cultures Resume home medications We'll follow as needed
--- NOTE | 2020-06-16 11:57 | P.HPIM ---
History of Present Illness H&P Date: 06/16/20 Rosa Maria Robin, is an 89-year-old female who presented to [facility] emergency room with a chief complaint of tachypnea and shortness of breath. patient is a resident of [facility], she has a known history of Alzheimer disease with advanced dementia, history of hypertension, history of hyperlipidemia, history of mitral valve replacement, patient was noticed to have shortness of breath wheezing and tachypnea and was sent to emergency room. Patient was evaluated in the emergency room her vital examination reveals a temperature of 98.6 pulse 91 respiration 28 blood pressure 134/74 pulse ox 96% on room air, laboratory data revealed a white blood count of 14.6 hemoglobin 12. 8 platelet count 354, d-dimer was elevated at 2.12 BUN was 22 creatinine 1.18, urine analysis revealed evidence of urinary tract infection, computed tomography scan angiogram of the chest did not reveal any evidence of pulmonary embolism, patient was started on IV antibiotic and was admitted to medical floor for further evaluation and treatment. Past Medical History Past Medical History: Dementia, Eye Disorder, Hyperlipidemia, Hypertension, Mitral Valve Prolapse (MVP), Osteoarthritis (OA), Thyroid Disorder Additional Past Medical History / Comment(s): HX OF ANEMIA, ULCER, GLAUCOMA, HX OF low back pain, HX STATES DIVERTICULOSIS AND HIATAL HERNIA, sob, cough History of Any Multi-Drug Resistant Organisms: None Reported Past Surgical History: Adenoidectomy, Cardiac Valve Replacement, Cholecystectomy, Joint Replacement, Orthopedic Surgery, Tonsillectomy Additional Past Surgical History / Comment(s): BILAT CATARACT, MITRAL VALVE REPLACED. BILAT KNEE REPLACEMENT. Epidural pain injectionsl x 3. Past Anesthesia/Blood Transfusion Reactions: No Reported Reaction Additional Past Anesthesia/Blood Transfusion Reaction / Comment(s): Pt has recieved blood with no adverse reaction. Past Psychological History: Anxiety, Depression, Panic Disorder Additional Psychological History / Comment(s): PT STATES NO CURRENT ISSUES Smoking Status: Never smoker Past Alcohol Use History: Occasional Additional Past Alcohol Use History / Comment(s): Pt may drink 2-3 drinks a month. Past Drug Use History: None Reported - Past Family History Father Family Medical History: Pneumonia Additional Family Medical History / Comment(s): Father was healthy. He of pneumonia at age 81yrs Mother Family Medical History: Congestive Heart Failure (CHF) Additional Family Medical History / Comment(s): Mother had low blood pressure. She had a cholecystectomy. She at age 85yrs. Medications and Allergies Home Medications Medication Instructions Recorded Confirmed Type Furosemide [Lasix] 20 mg PO DAILY 01/31/14 06/15/20 History Latanoprost Ophth [Xalatan 0.005%] 1 drop BOTH EYES HS 01/31/14 06/15/20 History Levothyroxine Sodium [Synthroid] 75 mcg PO DAILY 04/16/14 06/15/20 History Loperamide [Imodium] 2 - 4 mg PO QID PRN 04/16/14 06/15/20 History Ergocalciferol [Vitamin D2 50,000 unit PO TH 04/05/18 06/15/20 History (DRISDOL)] Acetaminophen Tab [Tylenol Tab] 1,000 mg PO Q4-6H PRN 06/15/20 06/15/20 History Azithromycin [Zithromax] 500 mg PO ONCE PRN 06/15/20 06/15/20 History Bisacodyl 5 mg PO DAILY PRN 06/15/20 06/15/20 History Calcium Polycarbophil [Fiber-Lax] 625 mg PO DAILY 06/15/20 06/15/20 History Cyanocobalamin (Vitamin B-12) 1,000 mcg PO DAILY 06/15/20 06/15/20 History [Vitamin B-12] Divalproex Sodium [Depakote 125 mg PO HS 06/15/20 06/15/20 History Sprinkle] Ferrous Sulfate [Iron (65 MG 325 mg PO DAILY 06/15/20 06/15/20 History Elemental)] Guaifen/Dextromethorphan/PE 20 ml PO Q4H PRN 06/15/20 06/15/20 History [Mucinex Fast-Max Congest-Cough] LORazepam [Ativan] 0.5 mg PO DAILY 06/15/20 06/15/20 History LORazepam [Ativan] 0.5 mg PO DAILY PRN 06/15/20 06/15/20 History Allergies Allergy/AdvReac Type Severity Reaction Status Date / Time amoxicillin [From Augmentin] Allergy Unknown Verified 06/15/20 19:08 clavulanic acid Allergy Unknown Verified 06/15/20 19:08 [From Augmentin] codeine Allergy Rash/Hives Verified 06/15/20 19:08 pravastatin [From Pravachol] Allergy Unknown Verified 06/15/20 19:08 ramipril [From Altace] Allergy Unknown, Verified 06/15/20 19:08 SNEEZING RUNNY NOSE Physical Exam Vitals: Vital Signs Temp Pulse Pulse Resp BP BP Pulse Ox 06/16/20 08:19 80 06/16/20 07:00 98.4 F 80 32 H 155/86 97 06/16/20 03:05 97.5 F L 70 22 132/74 96 06/15/20 22:00 99 F 93 18 121/74 97 06/15/20 19:00 94 28 H 144/80 98 06/15/20 18:00 88 30 H 144/76 96 06/15/20 17:30 90 32 H 144/76 95 06/15/20 17:00 90 30 H 139/80 100 06/15/20 16:30 89 32 H 100 06/15/20 16:21 93 34 H 131/79 98 06/15/20 16:20 99 06/15/20 16:18 92 32 H 131/79 95 06/15/20 14:55 98.6 F 91 28 H 134/74 96 Intake and Output 06/15/20 06/16/20 06/16/20 22:59 06:59 14:59 Intake Total 100 100 Balance 100 100 Intake: Oral 100 100 Other: # Voids 2 1 Weight 68.946 kg in general patient is alert confused in no apparent distress HEENT head normocephalic and atraumatic Neck is supple no JVD no goiter no lymphadenopathy Chest exam reveals a few scattered crackles bilaterally, with mild wheezing Cardiac exam reveals regular heart sounds S1 and S2 no gallops no murmurs Abdomen is soft nontender no organomegaly with normal bowel sounds Extremity exam reveals 1+ edema bilaterally Neurological examination reveals chronic confusion, no acute gross neurological deficit Results CBC & Chem 7: 06/16/20 06:13 06/16/20 06:12 Labs: Abnormal Lab Results - Last 24 Hours (Table) 06/15/20 06/15/20 06/15/20 Range/Units 15:31 15:31 15:31 WBC 14.6 H (3.8-10.6) k/uL Hgb (11.4-16.0) gm/dL Neutrophils # 12.1 H (1.3-7.7) k/uL APTT 21.3 L (22.0-30.0) sec D-Dimer 2.12 H (<0.60) mg/L FEU BUN 22 H (7-17) mg/dL Creatinine 1.18 H (0.52-1.04) mg/dL Glucose 111 H (74-99) mg/dL Urine Appearance (Clear) Urine Protein (Negative) Urine Blood (Negative) Ur Leukocyte Esterase (Negative) Urine RBC (0-5) /hpf Urine WBC (0-5) /hpf Urine WBC Clumps (None) /hpf Urine Bacteria (None) /hpf 06/15/20 06/16/20 Range/Units 16:35 06:13 WBC 12.3 H (3.8-10.6) k/uL Hgb 10.9 L (11.4-16.0) gm/dL Neutrophils # 9.4 H (1.3-7.7) k/uL APTT (22.0-30.0) sec D-Dimer (<0.60) mg/L FEU BUN (7-17) mg/dL Creatinine (0.52-1.04) mg/dL Glucose (74-99) mg/dL Urine Appearance Turbid H (Clear) Urine Protein 1+ H (Negative) Urine Blood Moderate H (Negative) Ur Leukocyte Esterase Large H (Negative) Urine RBC 14 H (0-5) /hpf Urine WBC >182 H (0-5) /hpf Urine WBC Clumps Many H (None) /hpf Urine Bacteria Many H (None) /hpf Thrombosis Risk Factor Assmnt - Choose All That Apply Any of the Below Risk Factors Present?: No Other Risk Factors: Yes Each Risk Factor Represents 3 Points: Age 75 years or older Other congenital or acquired thrombophilia - If yes, enter type in comment: No Thrombosis Risk Factor Assessment Total Risk Factor Score: 3 Thrombosis Risk Factor Assessment Level: Moderate Risk Assessment and Plan Plan: 1. shortness of breath and wheezing on presentation, improving with albuterol updrafts. 2. Evidence of urinary tract infection started on IV antibiotics Rocephin, urine culture pending 3. Elevated d-dimer with negative computed tomography scan angiogram of the chest, Will check bilateral lower extremity Doppler to rule out DVT. 4. Dehydration with mild elevation in BUN and creatinine on presentation 5. Underlying history of Alzheimer disease with advanced dementia. 6. underlying history of hypothyroidism 7. underlying history of hypertension. 8. Previous history of mitral valve replacement. at this time patient is admitted to medical floor, Will check echocardiogram, check bilateral lower extremity Doppler to rule out DVT Continue IV Rocephin awaiting urine culture results Pulmonary and cardiology consultation requested in regard to shortness of breath Will follow closely
[2020-06-16] MEDS: DIVALPROEX SPRINKLE 125 MG CAP.SPRINK PO SCH (20:04)
[2020-06-16] MEDS: LATANOPROST 0.005% OPHTH DROPS 2.5 ML BTL BOTH EYES SCH (20:04)
[2020-06-17] MEDS: LEVOTHYROXINE 75 MCG TAB PO SCH (05:48)
[2020-06-17 06:20] LABS: Basophils # (A) 0.1 k/uL (0-0.2); Basophils % (A) 1 %; Eosinophils # (A) 0.2 k/uL (0-0.7); Eosinophils % (A) 2 %; HCT 35.7 % (34.0-46.0); HGB 11.3 gm/dL (11.4-16.0); Lymphocytes # (A) 1.4 k/uL (1.0-4.8); Lymphocytes % (A) 13 %; MCH 26.9 pg (25.0-35.0); MCHC 31.8 g/dL (31.0-37.0); MCV 84.8 fL (80.0-100.0); Mean Platelet Volume 6.6; Monocytes # (A) 0.8 k/uL (0-1.0); Monocytes % (A) 8 %; Neutrophils # (A) 7.9 k/uL (1.3-7.7); Neutrophils % (A) 74 %; Platelet Count 290 k/uL (150-450); RBC 4.21 m/uL (3.80-5.40); RDW 12.9 % (11.5-15.5); WBC 10.7 k/uL (3.8-10.6)
[2020-06-17] MEDS: FUROSEMIDE 20 MG TAB PO SCH (07:15)
[2020-06-17] MEDS: ENOXAPARIN 40 MG/0.4 ML SYRINGE SQ SCH (07:15)
[2020-06-17 07:32] VITALS: RESP 20
[2020-06-17] MEDS: ALBUTEROL NEBULIZED 2.5 MG/3 ML INHALATION PRN ×2 (07:37→11:05)
[2020-06-17 10:35] LABS: African American GFR (CKD) 47.1 (60.0-200.0); Albumin 3.5 g/dL (3.80-4.90); Albumin/Globulin Ratio 1.4 (1.60-3.17); Anion Gap 9.1 mmol/L (4.00-12.00); Carbon Dioxide 26.9 mmol/L (21.6-31.8); Globulin 2.5 g/dL (1.6-3.3); Non-African American GFR(CKD) 40.6 (60.0-200.0); Potassium 3.6 mmol/L (3.5-5.5); Total Bilirubin 0.3 mg/dL (0.2-1.2)
--- NOTE | 2020-06-17 10:43 | P.PN ---
Subjective Progress Note Date: 06/17/20 This is an 89-year-old female with past medical history of hypertension, hyperlipidemia, mitral valve replacement, dementia, who resides at [facility]. The patient herself was unsure exactly as to why she was admitted, apparently she was noted by the staff to have some wheezing. She was seen in consultation over the weekend. Patient was seen and evaluated this morning, appears quite comfortable, no complaints. Blood pressure 136/70 with a heart rate in the 90s to 100, 96% on room air. White blood cell count 10.7, hemoglobin 11.3, platelet count 290. Sodium 138, potassium 3.6, BUN 30, creatinine 1.2. Objective - Vital Signs Vital signs: Vital Signs Temp 98.1 F 06/17/20 07:00 Pulse 108 H 06/17/20 07:46 Resp 20 06/17/20 07:00 BP 136/74 06/17/20 07:00 Pulse Ox 96 06/17/20 07:00 Intake & Output 06/16/20 06/17/20 06/17/20 18:59 06:59 18:59 Intake Total 100 Balance 100 Intake: Oral 100 Other: Voiding Method Diaper Diaper Incontinent Incontinent # Voids 3 1 - Exam PHYSICAL EXAMINATION: GENERAL: 89-year-old female in no acute distress at the time of my examination HEENT: Head is atraumatic, normocephalic. Pupils equal, round. Sclera anicteric. Conjunctiva are clear. Mucous membranes of the mouth are moist. Neck is supple. There is no elevated jugular venous pressure. No carotid bruit is heard. HEART EXAMINATION: Heart S1 S2 1 systolic murmur is heard CHEST EXAMINATION: Lungs are clear to auscultation and precussion. No chest wall tenderness is noted on palpation or with deep breathing. ABDOMEN: Soft, nontender. Bowel sounds are heard. No organomegaly noted. EXTREMITIES: 2+ peripheral pulses with no evidence of peripheral edema and no calf tenderness noted. NEUROLOGIC patient is awake, alert and oriented 1 . . - Labs CBC & Chem 7: 06/17/20 05:55 06/16/20 06:12 Labs: Abnormal Lab Results - Last 24 Hours (Table) 06/17/20 Range/Units 05:55 WBC 10.7 H (3.8-10.6) k/uL Hgb 11.3 L (11.4-16.0) gm/dL Neutrophils # 7.9 H (1.3-7.7) k/uL Microbiology - Last 24 Hours (Table) 06/16/20 15:00 Urine Culture - Preliminary Urine,Clean Catch 06/15/20 19:23 Blood Culture - Preliminary Blood No Growth after 24 hours Assessment and Plan Plan: Assessment and plan #1 tachypnea possibly secondary to underlying UTI/sepsis #2 hyperlipidemia #3 hypertension #4 history of mitral valve replacement #5 dementia #6 UTI, on Rocephin Plan Patient did have an echocardiogram with Doppler study performed which we will review, coronavirus testing pending. Once we review the patient's echocardiogram with Doppler study, we will follow this patient on an as-needed basis only, please don't hesitate to call if you have any questions. DNP note has been reviewed, I agree with a documented findings and plan of care. Patient was seen and examined.
[2020-06-17 14:26] VITALS: BP 131/79; PULSE 100; TEMP 98.2
--- NOTE | 2020-06-17 19:12 | P.DS ---
Providers Date of admission: 06/15/20 19:04 Expected date of discharge: 06/17/20 Attending physician: Genevieve Singh Consults: 06/16/20 08:27 Consult Physician Routine Consulting Provider: Jourdan Ashraf Consult Reason/Comments: Shortness of breath Do you want consulting provider notified?: Yes 06/16/20 08:28 Consult Physician Routine Consulting Provider: Migel Andrade Consult Reason/Comments: shortness of breath Do you want consulting provider notified?: Yes Primary care physician: Genevieve Francisco [facility] Course: Diagnosis on discharge: 1. shortness of breath and wheezing on presentation, improving with albuterol updrafts. 2. Evidence of urinary tract infection started on IV antibiotics Rocephin, urine culture pending 3. Elevated d-dimer with negative computed tomography scan angiogram of the chest, Will check bilateral lower extremity Doppler to rule out DVT. 4. Dehydration with mild elevation in BUN and creatinine on presentation 5. Underlying history of Alzheimer disease with advanced dementia. 6. underlying history of hypothyroidism 7. underlying history of hypertension. 8. Previous history of mitral valve replacement. Hospital course: Rosa Maria Robin, is an 89-year-old female who presented to [facility] emergency room with a chief complaint of tachypnea and shortness of breath. patient is a resident of [facility], she has a known history of Alzheimer disease with advanced dementia, history of hypertension, history of hyperlipidemia, history of mitral valve replacement, patient was noticed to have shortness of breath wheezing and tachypnea and was sent to emergency room. Patient was evaluated in the emergency room her vital examination reveals a temp erature of 98.6 pulse 91 respiration 28 blood pressure 134/74 pulse ox 96% on room air, laboratory data revealed a white blood count of 14.6 hemoglobin 12.8 platelet count 354, d-dimer was elevated at 2.12 BUN was 22 creatinine 1.18, urine analysis revealed evidence of urinary tract infection, computed tomography scan angiogram of the chest did not reveal any evidence of pulmonary embolism, patient was started on IV antibiotic and was admitted to medical floor for further evaluation and treatment. On 06/17/2020 patient was seen and examined on the medical floor she is alert and confused in no apparent distress she is denying any symptoms at this time there is no fever or chills no headache or dizziness no chest pain no shortness of breath no cough no nausea or vomiting no abdominal pain no diarrhea no blood in the stools no burning with urination no frequency or urgency and no hematuria patient has evidence of urinary tract infection and is being treated with IV Rocephin with significant improvement since admission at this time will switched to oral Ceftin 500 mg twice daily for 7 more days and patient can be discharged home to the [facility] will follow as outpatient for further evaluation and treatment Patient Condition at Discharge: Stable Plan - Discharge Summary Discharge Rx Participant: No New Discharge Prescriptions: New Cefuroxime Axetil [Ceftin] 500 mg PO BID 7 Days #14 tab Albuterol Nebulized [Ventolin Nebulized] 2.5 mg INHALATION RT-QID PRN ml PRN Reason: Shortness Of Breath Or Wheezing Continue Furosemide [Lasix] 20 mg PO DAILY Latanoprost Ophth [Xalatan 0.005%] 1 drop BOTH EYES HS Levothyroxine Sodium [Synthroid] 75 mcg PO DAILY Loperamide [Imodium] 2 - 4 mg PO QID PRN PRN Reason: Diarrhea Ergocalciferol [Vitamin D2 (DRISDOL)] 50,000 unit PO TH Bisacodyl 5 mg PO DAILY PRN PRN Reason: Constipation Acetaminophen Tab [Tylenol] 1,000 mg PO Q4-6H PRN PRN Reason: Pain LORazepam [Ativan] 0.5 mg PO DAILY PRN PRN Reason: Anxiety LORazepam [Ativan] 0.5 mg PO DAILY Ferrous Sulfate [Iron (65 MG Elemental)] 325 mg PO DAILY Calcium Polycarbophil [Fiber-Lax] 625 mg PO DAILY Divalproex Sodium [Depakote Sprinkle] 125 mg PO HS Cyanocobalamin (Vitamin B-12) [Vitamin B-12] 1,000 mcg PO DAILY Guaifen/Dextromethorphan/PE [Mucinex Fast-Max Congest-Cough] 20 ml PO Q4H PRN PRN Reason: Cough Discontinued Azithromycin [Zithromax] 500 mg PO ONCE PRN PRN Reason: PRIOR TO DENTAL APPOINTMENT Discharge Medication List Furosemide [Lasix] 20 mg PO DAILY 01/31/14 [History] Latanoprost Ophth [Xalatan 0.005%] 1 drop BOTH EYES HS 01/31/14 [History] Levothyroxine Sodium [Synthroid] 75 mcg PO DAILY 04/16/14 [History] Loperamide [Imodium] 2 - 4 mg PO QID PRN 04/16/14 [History] Ergocalciferol [Vitamin D2 (DRISDOL)] 50,000 unit PO TH 04/05/18 [History] Acetaminophen Tab [Tylenol] 1,000 mg PO Q4-6H PRN 06/15/20 [History] Bisacodyl 5 mg PO DAILY PRN 06/15/20 [History] Calcium Polycarbophil [Fiber-Lax] 625 mg PO DAILY 06/15/20 [History] Cyanocobalamin (Vitamin B-12) [Vitamin B-12] 1,000 mcg PO DAILY 06/15/20 [History] Divalproex Sodium [Depakote Sprinkle] 125 mg PO HS 06/15/20 [History] Ferrous Sulfate [Iron (65 MG Elemental)] 325 mg PO DAILY 06/15/20 [History] Guaifen/Dextromethorphan/PE [Mucinex Fast-Max Congest-Cough] 20 ml PO Q4H PRN 06/15/20 [History] LORazepam [Ativan] 0.5 mg PO DAILY 06/15/20 [History] LORazepam [Ativan] 0.5 mg PO DAILY PRN 06/15/20 [History] Albuterol Nebulized [Ventolin Nebulized] 2.5 mg INHALATION RT-QID PRN ml 06/17/20 [Rx] Cefuroxime Axetil [Ceftin] 500 mg PO BID 7 Days #14 tab 06/17/20 [Rx] Follow up Appointment(s)/Referral(s): Genevieve Singh MD [Primary Care Provider] - 1-2 days (office closed at time of discharge Please call to make appointment) Patient Instructions/Handouts: Urinary Tract Infection in Women (DC) Activity/Diet/Wound Care/Special Instructions: Nebulizer order due to asthma, patient will be on albuterol 2.5mg/3ml QID. Discharge Disposition: HOME SELF-CARE
--- NOTE | 2020-06-18 10:30 | ECHOF ---
Referral Reason:shortness of breath MEASUREMENTS -------- HEIGHT: 167.6 cm WEIGHT: 68.9 kg BP: 133/75 RVIDd: 2.4 cm (< 3.3) IVSd: 1.6 cm (0.6 - 1.1) LVIDd: 2.0 cm (3.9 - 5.3) LVPWd: 2.0 cm (0.6 - 1.1) IVSs: 1.5 cm LVIDs: 1.8 cm LVPWs: 2.1 cm LAESV Index (A-L): 60.95 ml/m Ao Diam: 2.8 cm (2.0 - 3.7) AV Cusp: 1.3 cm (1.5 - 2.6) MV E Rodri: 1.32 m/s MV DecT: 289 ms MV A Rodri: 1.61 m/s MV E/A Ratio: 0.82 AV maxP.95 mmHg AV meanP.72 mmHg RAP: 5.00 mmHg RVSP: 40.48 mmHg FINDINGS -------- This was a technically difficult study with suboptimal views. The left ventricular size is normal. There is moderate concentric left ventricular hypertrophy. O verall left ventricular systolic function is normal with, an EF between 55 - 60 %. The right ventricle is normal in size. LA is severely dilated >40 ml/m2 The right atrium was not well visualized. patient refused Lumason. There is mild aortic valve sclerosis. There is mild aortic regurgitation. There is mild aortic st enosis present. Mild mitral regurgitation is present. The peak and mean MV gradients are 16.39mmHg 8.84mmHg as shea sured by doppler. 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 [id number] tricuspid regurgitation present. There is mild pulmonary hypertension. The right ventricular systolic pressure, as measured by Doppler, is 40.48mmHg. The pulmonic valve was not well visualized. There is no pulmonic regurgitation present. The aortic root size is normal. IVC Not well visulized. There is no pericardial effusion. CONCLUSIONS -------- 1. There is moderate concentric left ventricular hypertrophy. 2. Overall left ventricular systolic function is normal with, an EF between 55 - 60 %. 3. LA is severely dilated >40 ml/m2 4. There is mild aortic valve sclerosis. 5. There is mild aortic regurgitation. 6. There is mild aortic stenosis present. 7. Mild mitral regurgitation is present. 8. The peak and mean MV gradients are 16.39mmHg 8.84mmHg as measured by doppler. 9. 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 10. [id number] tricuspid regurgitation present. 11. There is mild pulmonary hypertension. [employer]: Iman Keith RDCS
== END 2020-06-17 17:17 | disposition home or self-care (01) ==
LOC: EC 14:46 → 4SSUR 19:04
PROVIDERS: ADMIT Internal Medicine; ATTEND Internal Medicine
DX: N39.0 Urinary tract infection, site not specified (principal); R06.02 Shortness of breath; K44.9 Diaphragmatic hernia without obstruction or gangrene; I10 Essential (primary) hypertension; R06.2 Wheezing; R06.82 Tachypnea, not elsewhere classified; Z20.828 Contact with and (suspected) exposure to other viral communicable diseases; R79.89 Other specified abnormal findings of blood chemistry; E86.0 Dehydration; G30.9 Alzheimer's disease, unspecified; E03.9 Hypothyroidism, unspecified; Z95.2 Presence of prosthetic heart valve; Z79.899 Other long term (current) drug therapy; F03.90 Unspecified dementia, unspecified severity, without behavioral disturbance, psychotic disturbance, mood disturbance, and anxiety; E78.5 Hyperlipidemia, unspecified; M19.90 Unspecified osteoarthritis, unspecified site; H40.9 Unspecified glaucoma; D64.9 Anemia, unspecified; M54.5 Low back pain; Z90.49 Acquired absence of other specified parts of digestive tract; Z96.653 Presence of artificial knee joint, bilateral; Z98.42 Cataract extraction status, left eye; Z98.41 Cataract extraction status, right eye; Z98.890 Other specified postprocedural states; F41.9 Anxiety disorder, unspecified; F32.9 Major depressive disorder, single episode, unspecified; F41.0 Panic disorder [episodic paroxysmal anxiety]; Z83.6 Family history of other diseases of the respiratory system; Z82.49 Family history of ischemic heart disease and other diseases of the circulatory system; Z79.890 Hormone replacement therapy; Z88.5 Allergy status to narcotic agent; Z88.0 Allergy status to penicillin; Z88.8 Allergy status to other drugs, medicaments and biological substances
CPT/HCPCS: 96365; 96366 ×2; 96372 ×2; 96376; 99285; 36415; 94640 ×3; 93005 ×2; 93306; 85379; 80164; 83880; 80053 ×2; 80048; 82140; 82550; 83605; 84484; 85025 ×3; 85610; 85730; 81001; 87040; 87086; 71046; 71275; G0378 ×3; U0003; J1650 ×2; J0696 ×3; Q9967

== ENCOUNTER 2020-08-25 00:56 | Inpatient (IN) | payer MEDICARE ==
--- NOTE | 2020-08-25 02:17 | XR ---
EXAM: XR Chest, 1 View CLINICAL HISTORY: ITS.REASON XR Reason: dyspnea TECHNIQUE: Frontal view of the chest. COMPARISON: CT chest dated 06/15/2020 FINDINGS: Lungs: Low lung volumes. Pleural space: Unremarkable. Heart: Unremarkable. Mediastinum: Unremarkable. Bones/joints: Evidence of prior median sternotomy. IMPRESSION: Low lung volumes.
[2020-08-25 02:23] LABS: Basophils # (A) 0.4 k/uL (0-0.2); Basophils % (A) 3 %; Eosinophils % (A) 0 %; HCT 31.8 % (34.0-46.0); HGB 10.4 gm/dL (11.4-16.0); Lymphocytes # (A) 1.4 k/uL (1.0-4.8); Lymphocytes % (A) 11 %; MCH 26.8 pg (25.0-35.0); MCHC 32.7 g/dL (31.0-37.0); MCV 81.8 fL (80.0-100.0); Monocytes # (A) 1.1 k/uL (0-1.0); Monocytes % (A) 9 %; Neutrophils # (A) 8.8 k/uL (1.3-7.7); Neutrophils % (A) 73 %; Platelet Count 266 k/uL (150-450); RBC 3.89 m/uL (3.80-5.40); RDW 13.6 % (11.5-15.5); WBC 12.1 k/uL (3.8-10.6)
[2020-08-25 02:36] LABS: Albumin 3.2 g/dL (3.5-5.0); Calcium 8.6 mg/dL (8.4-10.2); Total Bilirubin 0.3 mg/dL (0.2-1.3); Total Protein 6.2 g/dL (6.3-8.2)
[2020-08-25 02:45] LABS: Prothrombin Time 10.3 sec (9.0-12.0)
[2020-08-25 02:50] LABS: D-Dimer 4.04 mg/L FEU (<0.60); Partial Thromboplastin Time 21.5 sec (22.0-30.0)
[2020-08-25] MEDS ORDERED: ENOXAPARIN 60 MG/0.6 ML SYRINGE SQ STA (03:12)
[2020-08-25] MEDS ORDERED: POTASSIUM CHLORIDE ER 20 MEQ TAB.ER PO STA (03:13)
[2020-08-25] MEDS ORDERED: NALOXONE 0.4 MG/ML 1 ML VIAL IV PRN (03:16)
[2020-08-25] MEDS ORDERED: ACETAMINOPHEN TAB 325 MG TAB PO PRN (03:16)
--- NOTE | 2020-08-25 03:20 | ED ---
SOB HPI - General Chief Complaint: Shortness of Breath Stated Complaint: Altered Mental Status, MATTY Time Seen by Provider: 08/25/20 01:01 Source: EMS Mode of arrival: EMS Limitations: altered mental status (Dementia versus delirium) - History of Present Illness Initial Comments: This patient is an 89-year-old woman who is sent here from [facility] where she is a resident to be evaluated for dyspnea. The patient was reported to be having shortness of breath, unknown duration. She did have positive Covid test (08/24/2020). Patient does appear to have some underlying dementia versus delirium. At my history and physical, the patient is denying any complaints. She denies pain. She is denying shortness of breath area she did acknowledge coughing. MD Complaint: shortness of breath -: unknown Severity scale (1-10): 0 Improves With: nothing Worsens With: nothing Associated Symptoms: cough Treatments Prior to Arrival: none - Related Data Home Oxygen Therapy: No Home Medications Medication Instructions Recorded Confirmed Furosemide [Lasix] 20 mg PO DAILY 01/31/14 06/15/20 Latanoprost Ophth [Xalatan 0.005%] 1 drop BOTH EYES HS 01/31/14 06/15/20 Levothyroxine Sodium [Synthroid] 75 mcg PO DAILY 04/16/14 06/15/20 Loperamide [Imodium] 2 - 4 mg PO QID PRN 04/16/14 06/15/20 Ergocalciferol [Vitamin D2 50,000 unit PO TH 04/05/18 06/15/20 (DRISDOL)] Acetaminophen Tab [Tylenol] 1,000 mg PO Q4-6H PRN 06/15/20 06/15/20 Bisacodyl 5 mg PO DAILY PRN 06/15/20 06/15/20 Calcium Polycarbophil [Fiber-Lax] 625 mg PO DAILY 06/15/20 06/15/20 Cyanocobalamin (Vitamin B-12) 1,000 mcg PO DAILY 06/15/20 06/15/20 [Vitamin B-12] Divalproex Sodium [Depakote 125 mg PO HS 06/15/20 06/15/20 Sprinkle] Ferrous Sulfate [Iron (65 MG 325 mg PO DAILY 06/15/20 06/15/20 Elemental)] Guaifen/Dextromethorphan/PE 20 ml PO Q4H PRN 06/15/20 06/15/20 [Mucinex Fast-Max Congest-Cough] LORazepam [Ativan] 0.5 mg PO DAILY 06/15/20 06/15/20 LORazepam [Ativan] 0.5 mg PO DAILY PRN 06/15/20 06/15/20 Previous Rx's Medication Instructions Recorded Albuterol Nebulized [Ventolin 2.5 mg INHALATION RT-QID PRN ml 06/17/20 Nebulized] Cefuroxime Axetil [Ceftin] 500 mg PO BID 7 Days #14 tab 06/17/20 Allergies Allergy/AdvReac Type Severity Reaction Status Date / Time amoxicillin [From Augmentin] Allergy Unknown Verified 06/15/20 19:08 clavulanic acid Allergy Unknown Verified 06/15/20 19:08 [From Augmentin] codeine Allergy Rash/Hives Verified 06/15/20 19:08 pravastatin [From Pravachol] Allergy Unknown Verified 06/15/20 19:08 ramipril [From Altace] Allergy Unknown, Verified 06/15/20 19:08 SNEEZING RUNNY NOSE Review of Systems ROS Statement: Those systems with pertinent positive or pertinent negative responses have been documented in the HPI. ROS Other: All systems not noted in ROS Statement are negative. Limitations: ROS unobtainable due to patients medical condition (Dementia versus delirium) Respiratory: Reports: cough. Denies: dyspnea Cardiovascular: Denies: chest pain Gastrointestinal: Denies: abdominal pain, vomiting Musculoskeletal: Denies: back pain Neurological: Denies: headache Past Medical History Past Medical History: Eye Disorder, Hyperlipidemia, Hypertension, Mitral Valve Prolapse (MVP), Osteoarthritis (OA), Thyroid Disorder Additional Past Medical History / Comment(s): HX OF ANEMIA, ULCER, GLAUCOMA, HX OF low back pain, HX STATES DIVERTICULOSIS AND HIATAL HERNIA, PT NOT AWARE History of Any Multi-Drug Resistant Organisms: None Reported Past Surgical History: Adenoidectomy, Cardiac Valve Replacement, Cholecystectomy, Joint Replacement, Orthopedic Surgery, Tonsillectomy Additional Past Surgical History / Comment(s): BILAT CATARACT, MITRAL VALVE REPLACED. BILAT KNEE REPLACEMENT. Epidural pain injectionsl x 3. Past Anesthesia/Blood Transfusion Reactions: No Reported Reaction Additional Past Anesthesia/Blood Transfusion Reaction / Comment(s): Pt has recieved blood with no adverse reaction. Past Psychological History: Anxiety, Depression, Panic Disorder Smoking Status: Never smoker Past Alcohol Use History: Occasional Past Drug Use History: None Reported - Past Family History Father Family Medical History: Pneumonia Additional Family Medical History / Comment(s): Father was healthy. He of pneumonia at age 81yrs Mother Family Medical History: Congestive Heart Failure (CHF) Additional Family Medical History / Comment(s): Mother had low blood pressure. She had a cholecystectomy. She at age 85yrs. General Exam General appearance: alert, in distress (Patient is mildly tachypneic) Head exam: Present: atraumatic, normocephalic Eye exam: Present: normal appearance. Absent: scleral icterus, conjunctival in jection ENT exam: Present: mucous membranes dry Neck exam: Present: normal inspection Respiratory exam: Present: respiratory distress (Mild tachypnea). Absent: wheezes, rales, rhonchi, stridor, accessory muscle use, decreased breath sounds, prolonged expiratory Cardiovascular Exam: Present: regular rate, normal rhythm, normal heart sounds. Absent: systolic murmur, diastolic murmur, rubs, gallop GI/Abdominal exam: Present: soft. Absent: tenderness, guarding, rebound, rigid, mass Extremities exam: Present: normal inspection, normal capillary refill. Absent: pedal edema, calf tenderness Back exam: Present: normal inspection. Absent: CVA tenderness (R), CVA tenderness (L) Neurological exam: Present: alert. Absent: oriented X3 (Patient does oriented to person.), motor sensory deficit Skin exam: Present: warm, dry, intact, normal color. Absent: rash Course Vital Signs 08/25/20 08/25/20 01:01 02:41 Temperature 100 F H Pulse Rate 88 89 Respiratory 22 23 Rate Blood Pressure 142/76 103/64 O2 Sat by Pulse 100 96 Oximetry Medical Decision Making - Medical Decision Making This patient is an 89-year-old woman sent from her long-term care facility for suspected dyspnea. On arrival she does have some mild tachypnea though she has good oxygen saturation on the nasal cannula. The patient denies complaints here, but workup concerning for possible PE related to the Covid diagnosis. The patient's renal function low so not candidate for CTA. Patient is given Lovenox and will have VQ scan at first availability. Case discussed with her physician and she'll be admitted. Serial cardiac enzymes though no ischemia on the EKG. The patient does have paperwork from the long-term care facility indicating DO NOT RESUSCITATE status. - Lab Data Result diagrams: 08/25/20 02:13 08/25/20 02:13 Lab Results 08/25/20 08/25/20 08/25/20 Range/Units 02:13 02:13 02:13 WBC 12.1 H (3.8-10.6) k/uL RBC 3.89 (3.80-5.40) m/uL Hgb 10.4 L (11.4-16.0) gm/dL Hct 31.8 L (34.0-46.0) % MCV 81.8 (80.0-100.0) fL MCH 26.8 (25.0-35.0) pg MCHC 32.7 (31.0-37.0) g/dL RDW 13.6 (11.5-15.5) % Plt Count 266 (150-450) k/uL MPV 7.0 Neutrophils % 73 % Lymphocytes % 11 % Monocytes % 9 % Eosinophils % 0 % Basophils % 3 % Neutrophils # 8.8 H (1.3-7.7) k/uL Lymphocytes # 1.4 (1.0-4.8) k/uL Monocytes # 1.1 H (0-1.0) k/uL Eosinophils # 0.0 (0-0.7) k/uL Basophils # 0.4 H (0-0.2) k/uL PT 10.3 (9.0-12.0) sec INR 1.0 (<1.2) APTT 21.5 L (22.0-30.0) sec D-Dimer 4.04 H (<0.60) mg/L FEU Sodium 138 (137-145) mmol/L Potassium 3.0 L (3.5-5.1) mmol/L Chloride 105 (98-107) mmol/L Carbon Dioxide 27 (22-30) mmol/L Anion Gap 6 mmol/L BUN 18 H (7-17) mg/dL Creatinine 1.29 H (0.52-1.04) mg/dL Est GFR (CKD-EPI)AfAm 43 (>60 ml/min/1.73 sqM) Est GFR (CKD-EPI)NonAf 37 (>60 ml/min/1.73 sqM) Glucose 87 (74-99) mg/dL Plasma Lactic Acid Branden (0.7-2.0) mmol/L Calcium 8.6 (8.4-10.2) mg/dL Total Bilirubin 0.3 (0.2-1.3) mg/dL AST 32 (14-36) U/L ALT 14 (4-34) U/L Alkaline Phosphatase 61 (38-126) U/L Troponin I (0.000-0.034) ng/mL NT-Pro-B Natriuret Pep pg/mL Total Protein 6.2 L (6.3-8.2) g/dL Albumin 3.2 L (3.5-5.0) g/dL 08/25/20 08/25/20 08/25/20 Range/Units 02:13 02:13 02:13 WBC (3.8-10.6) k/uL RBC (3.80-5.40) m/uL Hgb (11.4-16.0) gm/dL Hct (34.0-46.0) % MCV (80.0-100.0) fL MCH (25.0-35.0) pg MCHC (31.0-37.0) g/dL RDW (11.5-15.5) % Plt Count (150-450) k/uL MPV Neutrophils % % Lymphocytes % % Monocytes % % Eosinophils % % Basophils % % Neutrophils # (1.3-7.7) k/uL Lymphocytes # (1.0-4.8) k/uL Monocytes # (0-1.0) k/uL Eosinophils # (0-0.7) k/uL Basophils # (0-0.2) k/uL PT (9.0-12.0) sec INR (<1.2) APTT (22.0-30.0) sec D-Dimer (<0.60) mg/L FEU Sodium (137-145) mmol/L Potassium (3.5-5.1) mmol/L Chloride (98-107) mmol/L Carbon Dioxide (22-30) mmol/L Anion Gap mmol/L BUN (7-17) mg/dL Creatinine (0.52-1.04) mg/dL Est GFR (CKD-EPI)AfAm (>60 ml/min/1.73 sqM) Est GFR (CKD-EPI)NonAf (>60 ml/min/1.73 sqM) Glucose (74-99) mg/dL Plasma Lactic Acid Branden 1.3 (0.7-2.0) mmol/L Calcium (8.4-10.2) mg/dL Total Bilirubin (0.2-1.3) mg/dL AST (14-36) U/L ALT (4-34) U/L Alkaline Phosphatase (38-126) U/L Troponin I 0.049 H* (0.000-0.034) ng/mL NT-Pro-B Natriuret Pep 3900 pg/mL Total Protein (6.3-8.2) g/dL Albumin (3.5-5.0) g/dL - EKG Data EKG shows normal: sinus rhythm, axis (Normal), intervals (ND interval 150 ms, QRS duration 94 ms, both normal. QTC 531 ms, prolonged.), QRS complexes (LVH) Rate: normal (Rate 87 bpm) Interpretation: LVH (With repolarization abnormality) Disposition Clinical Impression: COVID-19, Elevated troponin, Elevated d-dimer, Elevated brain natriuretic peptide (BNP) level, Hypokalemia Disposition: ADMITTED IP TO THIS HOSP Condition: Serious
[2020-08-25] MEDS: SODIUM CHLORIDE 0.9% 1,000 ML IV SCH ×2 (04:21→18:01)
[2020-08-25] MEDS ORDERED: FAMOTIDINE 20 MG TAB PO SCH (09:00)
--- NOTE | 2020-08-25 09:03 | NM ---
EXAMINATION TYPE: NM pul perfusion DATE OF EXAM: 08/25/2020 COMPARISON: May 05, 2014 HISTORY: Difficulty in breathing Following administration of 4.8 mCi Tc 99m MAA. Images obtained post injection. FINDINGS: There is a similar perfusion pattern now when compared to prior examination of 05/05/2014. There is no evidence for perfusion defect at this time. IMPRESSION: Low probability for pulmonary embolism.
[2020-08-25] MEDS ORDERED: ACETAMINOPHEN TAB 500 MG TAB PO PRN (10:03)
[2020-08-25] MEDS ORDERED: bisacodyL 5 MG TABLET.DR PO PRN (10:03)
[2020-08-25] MEDS ORDERED: LORazepam 0.5 MG TAB PO PRN (10:03)
[2020-08-25] MEDS ORDERED: LOPERAMIDE 2 MG CAP PO PRN (10:03)
[2020-08-25] MEDS ORDERED: guaiFENesin-DM 100-10MG/5ML 10 ML CUP PO PRN (10:28)
--- NOTE | 2020-08-25 10:44 | XR ---
EXAMINATION TYPE: XR chest 1V portable DATE OF EXAM: 08/25/2020 HISTORY: Shortness of breath. COMPARISON: 08/25/2020 TECHNIQUE: Single view of the chest is submitted. FINDINGS: Demonstrated are scattered senescent parenchymal change. Interval improvement in perihilar and basilar infiltrates. The heart is stable. Hilar and mediastinal structures are within normal limits. Degenerative changes are seen of the dorsal spine. IMPRESSION: 1. Interval improvement in perihilar and basilar infiltrates.
[2020-08-25] MEDS: ASCORBIC ACID 500 MG TAB PO SCH ×2 (12:01→20:12)
[2020-08-25] MEDS: DEXAMETHASONE SOD PHOSPHATE 10 MG/ML 1 ML VIAL IV SCH (12:01)
[2020-08-25] MEDS: LEVOTHYROXINE 75 MCG TAB PO SCH (12:01)
[2020-08-25] MEDS: FUROSEMIDE 20 MG TAB PO SCH (12:01)
--- NOTE | 2020-08-25 13:58 | P.HPIM ---
History of Present Illness H&P Date: 08/25/20 Rosa Maria Robin, is an 89-year-old female, who resides currently at [facility], who was diagnosed with Covid 19 infection recently, patient started having worsening cough and shortness of breath, she was sent to [facility] for further evaluation. Patient was evaluated in ER her vital examination on presentation revealed a temperature of 100 pulse 88 respiration 22 blood pressure 142/76 pulse ox 100% on 2 L nasal cannula her white blood count was 12.1 hemoglobin 10.4 platelet count 31.8 d-dimer was elevated at 4.04 BUN elevated at 18 creatinine 1.29 potassium was low at 3.0. Patient was admitted to medical floor for further evaluation and treatment, VQ scan was ordered due to elevated d-dimer. Pulmonary consultation was requested, patient was started on IV dexamethasone and subcu Lovenox. Patient has a known history of advanced dementia, she also has a known history of hypertension, hypothyroidism, and history of rheumatoid arthritis. On review of systems patient is alert, confused, in no apparent distress she is maintained on oxygen 2 L via nasal cannula and seems to be comfortable while lying in bed, she does not verbalize any complaints at this time. Past Medical History Past Medical History: Eye Disorder, Hyperlipidemia, Hypertension, Mitral Valve Prolapse (MVP), Osteoarthritis (OA), Thyroid Disorder Additional Past Medical History / Comment(s): HX OF ANEMIA, ULCER, GLAUCOMA, HX OF low back pain, HX STATES DIVERTICULOSIS AND HIATAL HERNIA, PT NOT AWARE History of Any Multi-Drug Resistant Organisms: None Reported Past Surgical History: Adenoidectomy, Cardiac Valve Replacement, Cholecystectomy, Joint Replacement, Orthopedic Surgery, Tonsillectomy Additional Past Surgical History / Comment(s): BILAT CATARACT, MITRAL VALVE REPLACED. BILAT KNEE REPLACEMENT. Epidural pain injectionsl x 3. Past Anesthesia/Blood Transfusion Reactions: No Reported Reaction Additional Past Anesthesia/Blood Transfusion Reaction / Comment(s): Pt has recieved blood with no adverse reaction. Past Psychological History: Anxiety, Depression, Panic Disorder Additional Psychological History / Comment(s): PT STATES NO CURRENT ISSUES Smoking Status: Never smoker Past Alcohol Use History: Occasional Additional Past Alcohol Use History / Comment(s): Pt may drink 2-3 drinks a month. Past Drug Use History: None Reported - Past Family History Father Family Medical History: Pneumonia Additional Family Medical History / Comment(s): Father was healthy. He of pneumonia at age 81yrs Mother Family Medical History: Congestive Heart Failure (CHF) Additional Family Medical History / Comment(s): Mother had low blood pressure. She had a cholecystectomy. She at age 85yrs. Medications and Allergies Home Medications Medication Instructions Recorded Confirmed Type Furosemide [Lasix] 20 mg PO DAILY 01/31/14 08/25/20 History Latanoprost Ophth [Xalatan 0.005%] 1 drop BOTH EYES HS 01/31/14 08/25/20 History Levothyroxine Sodium [Synthroid] 75 mcg PO DAILY 04/16/14 08/25/20 History Loperamide [Imodium] 2 - 4 mg PO QID PRN MDD 6 doses 04/16/14 08/25/20 History Ergocalciferol [Vitamin D2 50,000 unit PO TH 04/05/18 08/25/20 History (DRISDOL)] Acetaminophen Tab [Tylenol] 1,000 mg PO Q4-6H PRN 06/15/20 08/25/20 History Bisacodyl 5 mg PO DAILY PRN 06/15/20 08/25/20 History Calcium Polycarbophil [Fiber-Lax] 625 mg PO DAILY 06/15/20 08/25/20 History Cyanocobalamin (Vitamin B-12) 1,000 mcg PO DAILY 06/15/20 08/25/20 History [Vitamin B-12] Divalproex Sodium [Depakote 125 mg PO HS 06/15/20 08/25/20 History Sprinkle] Ferrous Sulfate [Iron (65 MG 325 mg PO DAILY 06/15/20 08/25/20 History Elemental)] Guaifen/Dextromethorphan/PE 20 ml PO Q4H PRN 06/15/20 08/25/20 History [Mucinex Fast-Max Congest-Cough] LORazepam [Ativan] 0.5 mg PO DAILY 06/15/20 08/25/20 History LORazepam [Ativan] 0.5 mg PO DAILY PRN 06/15/20 08/25/20 History Ascorbic Acid [Vitamin C] 500 mg PO BID 08/25/20 08/25/20 History Azithromycin [Zithromax] 500 mg PO ONCE PRN 08/25/20 08/25/20 History Zinc 50 mg PO DAILY 08/25/20 08/25/20 History Allergies Allergy/AdvReac Type Severity Reaction Status Date / Time amoxicillin [From Augmentin] Allergy Unknown Verified 08/25/20 06:30 clavulanic acid Allergy Unknown Verified 08/25/20 06:30 [From Augmentin] codeine Allergy Rash/Hives Verified 08/25/20 06:30 pravastatin [From Pravachol] Allergy Unknown Verified 08/25/20 06:30 ramipril [From Altace] Allergy Unknown, Verified 08/25/20 06:30 SNEEZING RUNNY NOSE Physical Exam Vitals: Vital Signs Temp Pulse Pulse Resp BP BP Pulse Ox 08/25/20 08:00 97.5 F L 76 18 122/59 96 08/25/20 05:22 97.5 F L 77 20 134/63 95 08/25/20 04:30 98.7 F 78 18 106/55 97 08/25/20 02:41 89 23 103/64 96 08/25/20 01:01 100 F H 88 22 142/76 100 Intake and Output 08/24/20 08/25/20 08/25/20 22:59 06:59 14:59 Other: Voiding Method Diaper Incontinent Weight 32.5 kg In general patient is alert and oriented 3 in no apparent distress HEENT head normocephalic and atraumatic Neck is supple no JVD no goiter no lymphadenopathy Chest exam reveals fine crackles in both lung nelson no wheezing Cardiac exam reveals regular heart sounds S1 and S2 no gallops no murmurs Abdomen is soft nontender no organomegaly with normal bowel sounds Extremity exam reveals minimal edema no cyanosis or clubbing Neurological examination reveals no gross focal neurological deficit Results CBC & Chem 7: 08/25/20 02:13 08/25/20 02:13 Labs: Abnormal Lab Results - Last 24 Hours (Table) 08/25/20 08/25/20 08/25/20 Range/Units 02:13 02:13 02:13 WBC 12.1 H (3.8-10.6) k/uL Hgb 10.4 L (11.4-16.0) gm/dL Hct 31.8 L (34.0-46.0) % Neutrophils # 8.8 H (1.3-7.7) k/uL Monocytes # 1.1 H (0-1.0) k/uL Basophils # 0.4 H (0-0.2) k/uL APTT 21.5 L (22.0-30.0) sec D-Dimer 4.04 H (<0.60) mg/L FEU Potassium 3.0 L (3.5-5.1) mmol/L BUN 18 H (7-17) mg/dL Creatinine 1.29 H (0.52-1.04) mg/dL Troponin I (0.000-0.034) ng/mL Total Protein 6.2 L (6.3-8.2) g/dL Albumin 3.2 L (3.5-5.0) g/dL 08/25/20 08/25/20 Range/Units 02:13 07:54 WBC (3.8-10.6) k/uL Hgb (11.4-16.0) gm/dL Hct (34.0-46.0) % Neutrophils # (1.3-7.7) k/uL Monocytes # (0-1.0) k/uL Basophils # (0-0.2) k/uL APTT (22.0-30.0) sec D-Dimer (<0.60) mg/L FEU Potassium (3.5-5.1) mmol/L BUN (7-17) mg/dL Creatinine (0.52-1.04) mg/dL Troponin I 0.049 H* 0.042 H* (0.000-0.034) ng/mL Total Protein (6.3-8.2) g/dL Albumin (3.5-5.0) g/dL Thrombosis Risk Factor Assmnt - Choose All That Apply Other Risk Factors: Yes Each Risk Factor Represents 3 Points: Age 75 years or older Thrombosis Risk Factor Assessment Total Risk Factor Score: 3 Thrombosis Risk Factor Assessment Level: Moderate Risk Assessment and Plan Plan: 1. COVID-19 infection 2. Elevated d-dimer rule out pulmonary embolism patient has elevated BUN and creatinine and computed tomography scan angiogram of the chest was not ordered VQ scan was ordered Will await the results 3. Underlying history of hypothyroidism Will resume Synthroid 4. Underlying history of Alzheimer's disease with advanced dementia 5. Underlying history of rheumatoid arthritis 6. Hypokalemia will correct during this admission 7. Underlying history of hypertension At this time patient is admitted to medical floor she was started on IV dexamethasone and subcu Lovenox pulmonary consultation was requested will follow closely
[2020-08-25] MEDS ORDERED: Potassium Replacement Protocol 1 EACH MISC MISCELLANE PRN (13:59)
[2020-08-25] MEDS ORDERED: ENOXAPARIN 60 MG/0.6 ML SYRINGE SQ SCH (15:30)
--- NOTE | 2020-08-25 16:39 | P.CNPUL ---
History of Present Illness Consult date: 08/25/20 Requesting physician: Genevieve Singh Reason for consult: dyspnea Chief complaint: Shortness of breath History of present illness: This is a 89-year-old female patient who has a history of dementia, hyperlipidemia, hypertension, mitral valve prolapse, hypothyroidism. Lifelong nonsmoker. She resides at [facility] and was found to be more short of breath than usual. He did test positive there on 08/24/2020. She is brought here early this morning for the shortness of breath. Chest x-ray shows perihilar and basilar infiltrates and VQ scan revealed low probability for pulmonary embolism. White count 12.1. Hemoglobin 10.4. Lymphocytes 1.4. D- dimer 4.04. Sodium 138. Potassium 3.0. Creatinine 1.29. Troponin 0.049, 0.042, 0.037. ProBNP 3900. He was initiated on dexamethasone and Lovenox. She is seen today in consultation on the selective care unit. She does know that she is at the hospital. She is oriented to person and place only. Currently maintaining O2 saturations in the mid to upper 90s on room air. She's afebrile. Hemodynamically stable. Review of Systems ROS unobtainable: due to mental status Past Medical History Past Medical History: Eye Disorder, Hyperlipidemia, Hypertension, Mitral Valve Prolapse (MVP), Osteoarthritis (OA), Thyroid Disorder Additional Past Medical History / Comment(s): HX OF ANEMIA, ULCER, GLAUCOMA, HX OF low back pain, HX STATES DIVERTICULOSIS AND HIATAL HERNIA, PT NOT AWARE History of Any Multi-Drug Resistant Organisms: None Reported Past Surgical History: Adenoidectomy, Cardiac Valve Replacement, Cholecystectomy, Joint Replacement, Orthopedic Surgery, Tonsillectomy Additional Past Surgical History / Comment(s): BILAT CATARACT, MITRAL VALVE REPLACED. BILAT KNEE REPLACEMENT. Epidural pain injectionsl x 3. Past Anesthesia/Blood Transfusion Reactions: No Reported Reaction Additional Past Anesthesia/Blood Transfusion Reaction / Comment(s): Pt has recieved blood with no adverse reaction. Past Psychological History: Anxiety, Depression, Panic Disorder Additional Psychological History / Comment(s): PT STATES NO CURRENT ISSUES Smoking Status: Never smoker Past Alcohol Use History: Occasional Additional Past Alcohol Use History / Comment(s): Pt may drink 2-3 drinks a mo nth. Past Drug Use History: None Reported - Past Family History Father Family Medical History: Pneumonia Additional Family Medical History / Comment(s): Father was healthy. He of pneumonia at age 81yrs Mother Family Medical History: Congestive Heart Failure (CHF) Additional Family Medical History / Comment(s): Mother had low blood pressure. She had a cholecystectomy. She at age 85yrs. Medications and Allergies Home Medications Medication Instructions Recorded Confirmed Type Furosemide [Lasix] 20 mg PO DAILY 01/31/14 08/25/20 History Latanoprost Ophth [Xalatan 0.005%] 1 drop BOTH EYES HS 01/31/14 08/25/20 History Levothyroxine Sodium [Synthroid] 75 mcg PO DAILY 04/16/14 08/25/20 History Loperamide [Imodium] 2 - 4 mg PO QID PRN MDD 6 doses 04/16/14 08/25/20 History Ergocalciferol [Vitamin D2 50,000 unit PO TH 04/05/18 08/25/20 History (DRISDOL)] Acetaminophen Tab [Tylenol] 1,000 mg PO Q4-6H PRN 06/15/20 08/25/20 History Bisacodyl 5 mg PO DAILY PRN 06/15/20 08/25/20 History Calcium Polycarbophil [Fiber-Lax] 625 mg PO DAILY 06/15/20 08/25/20 History Cyanocobalamin (Vitamin B-12) 1,000 mcg PO DAILY 06/15/20 08/25/20 History [Vitamin B-12] Divalproex Sodium [Depakote 125 mg PO HS 06/15/20 08/25/20 History Sprinkle] Ferrous Sulfate [Iron (65 MG 325 mg PO DAILY 06/15/20 08/25/20 History Elemental)] Guaifen/Dextromethorphan/PE 20 ml PO Q4H PRN 06/15/20 08/25/20 History [Mucinex Fast-Max Congest-Cough] LORazepam [Ativan] 0.5 mg PO DAILY 06/15/20 08/25/20 History LORazepam [Ativan] 0.5 mg PO DAILY PRN 06/15/20 08/25/20 History Ascorbic Acid [Vitamin C] 500 mg PO BID 08/25/20 08/25/20 History Azithromycin [Zithromax] 500 mg PO ONCE PRN 08/25/20 08/25/20 History Zinc 50 mg PO DAILY 08/25/20 08/25/20 History Allergies Allergy/AdvReac Type Severity Reaction Status Date / Time amoxicillin [From Augmentin] Allergy Unknown Verified 08/25/20 06:30 clavulanic acid Allergy Unknown Verified 08/25/20 06:30 [From Augmentin] codeine Allergy Rash/Hives Verified 08/25/20 06:30 pravastatin [From Pravachol] Allergy Unknown Verified 08/25/20 06:30 ramipril [From Altace] Allergy Unknown, Verified 08/25/20 06:30 SNEEZING RUNNY NOSE Physical Exam Vitals: Vital Signs Temp Pulse Pulse Resp BP BP Pulse Ox 08/25/20 13:22 18 08/25/20 12:00 98.2 F 78 18 126/56 97 08/25/20 08:00 97.5 F L 76 18 122/59 96 08/25/20 05:22 97.5 F L 77 20 134/63 95 08/25/20 04:30 98.7 F 78 18 106/55 97 08/25/20 02:41 89 23 103/64 96 08/25/20 01:01 100 F H 88 22 142/76 100 Intake and Output 08/25/20 08/25/20 08/25/20 06:59 14:59 22:59 Other: Voiding Method Diaper Incontinent Weight 32.5 kg 40.5 kg GENERAL EXAM: Alert, 89-year-old female patient, on room air comfortable in no apparent distress. HEAD: Normocephalic. EYES: Normal reaction of pupils, equal size. NOSE: Clear with pink turbinates. THROAT: No erythema or exudates. NECK: No masses, no JVD. CHEST: No chest wall deformity. LUNGS: Equal air entry with faint basilar crackles. CVS: S1 and S2 normal with no audible murmur, regular rhythm. ABDOMEN: No hepatosplenomegaly, normal bowel sounds, no guarding or rigidity. SPINE: No scoliosis or deformity SKIN: No rashes CENTRAL NERVOUS SYSTEM: No focal deficits, tone is normal in all 4 extremities. EXTREMITIES: There is no peripheral edema. No clubbing, no cyanosis. Periphe ral pulses are intact. Results - Laboratory Findings CBC and BMP: 08/25/20 02:13 08/25/20 02:13 PT/INR, D-dimer PT 10.3 sec (9.0-12.0) 08/25/20 02:13 INR 1.0 (<1.2) 08/25/20 02:13 D-Dimer 4.04 mg/L FEU (<0.60) H 08/25/20 02:13 Abnormal lab findings: Abnormal Labs 08/25/20 08/25/20 08/25/20 02:13 02:13 02:13 WBC 12.1 H Hgb 10.4 L Hct 31.8 L Neutrophils # 8.8 H Monocytes # 1.1 H Basophils # 0.4 H APTT 21.5 L D-Dimer 4.04 H Potassium 3.0 L BUN 18 H Creatinine 1.29 H Troponin I Total Protein 6.2 L Albumin 3.2 L 08/25/20 08/25/20 08/25/20 02:13 07:54 10:49 WBC Hgb Hct Neutrophils # Monocytes # Basophils # APTT D-Dimer Potassium BUN Creatinine Troponin I 0.049 H* 0.042 H* 0.037 H* Total Protein Albumin - Diagnostic Findings Chest x-ray: image reviewed Assessment and Plan Assessment: 1 Dyspnea secondary to acute CoVID 19 pneumonitis, on room air O2 saturation in the mid 90s 2 Dementia 3 Hypothyroidism 4 Hypertension 5 Hyperlipidemia Plan: The patient was seen and evaluated by Dr. Reyes Chest x-ray, labs, VQ scan reviewed Continue with Lovenox and dexamethasone with vitamin supplements Probable discharge in the a.m. Continue to follow make further recommendations based on her clinical status I, the cosigning physician, performed a history & physical examination of the patient. Lungs sounds and crackles in the posterior bases. Maintaining good O2 saturations in the 90s on room air. I discussed the assessment and plan of care with my nurse practitioner, Nanette Terry. I attest to the above consultation as dictated by her. Time with Patient: Greater than 30
[2020-08-25] MEDS: DIVALPROEX SPRINKLE 125 MG CAP.SPRINK PO SCH (20:12)
[2020-08-25] MEDS: LATANOPROST 0.005% OPHTH DROPS 2.5 ML BTL BOTH EYES SCH (20:12)
[2020-08-26] MEDS: SODIUM CHLORIDE 0.9% 1,000 ML IV SCH ×2 (06:35→11:58)
[2020-08-26] MEDS: LEVOTHYROXINE 75 MCG TAB PO SCH (06:37)
[2020-08-26] MEDS: DEXAMETHASONE SOD PHOSPHATE 10 MG/ML 1 ML VIAL IV SCH (07:52)
[2020-08-26] MEDS: ENOXAPARIN 40 MG/0.4 ML SYRINGE SQ SCH (07:52)
[2020-08-26] MEDS: FERROUS SULFATE 325 MG TAB PO SCH (07:53)
[2020-08-26] MEDS: LORazepam 0.5 MG TAB PO SCH (07:53)
[2020-08-26] MEDS: FUROSEMIDE 20 MG TAB PO SCH (07:53)
[2020-08-26] MEDS: CYANOCOBALAMIN 500 MCG TAB PO SCH (07:53)
[2020-08-26] MEDS: ASCORBIC ACID 500 MG TAB PO SCH ×2 (07:53→20:57)
[2020-08-26] MEDS: ZINC SULFATE 220 MG CAP PO SCH (07:53)
[2020-08-26] MEDS: FAMOTIDINE 20 MG TAB PO SCH (07:53)
[2020-08-26 11:31] LABS: Basophils % (A) 0 %; Eosinophils % (A) 0 %; HGB 9.5 gm/dL (11.4-16.0); Hypochromasia Moderate; Lymphocytes # (A) 0.5 k/uL (1.0-4.8); Lymphocytes % (A) 8 %; MCH 25.8 pg (25.0-35.0); MCHC 30.5 g/dL (31.0-37.0); MCV 84.4 fL (80.0-100.0); Mean Platelet Volume 6.8; Monocytes # (A) 0.3 k/uL (0-1.0); Monocytes % (A) 5 %; Neutrophils # (A) 5.8 k/uL (1.3-7.7); Neutrophils % (A) 87 %; Platelet Count 271 k/uL (150-450); RBC 3.68 m/uL (3.80-5.40); RDW 13.5 % (11.5-15.5); WBC 6.7 k/uL (3.8-10.6)
[2020-08-26 11:47] LABS: Albumin 3.2 g/dL (3.5-5.0); Calcium 8.3 mg/dL (8.4-10.2); Potassium 3.5 mmol/L (3.5-5.1); Total Bilirubin 0.3 mg/dL (0.2-1.3); Total Protein 6.2 g/dL (6.3-8.2)
--- NOTE | 2020-08-26 16:46 | PN ---
PROGRESS NOTE PULMONARY/CRITICAL CARE PROGRESS NOTE: DATE OF SERVICE: 08/26/2020 This patient is an 89-year-old female who has a history of dementia, hyperlipidemia, hypertension, mitral valve prolapse and hypothyroidism, and is a lifelong nonsmoker. She resides at [facility]. She was found to be more short of breath than usual. [facility] This was on [facility]24/[facility]. She was brought to the emergency room for increasing shortness of breath. Chest x-ray showed some perihilar and basilar infiltrates and V/Q scan revealed low probability for pulmonary embolism. Hence she was admitted with a diagnosis of COVID- 19 pneumonitis. Currently the patient seems to be doing reasonably well. She is on room air. Saturations are 99%. She really denies any major complaints at this time. PHYSICAL EXAMINATION: VITAL SIGNS: Current vital signs include temperature 98.1, heart rate 81, respiratory rate 18, blood pressure 122/71, mean 88, room-air saturation between 97% and 99%. GENERAL APPEARANCE: She appears in no acute distress. HEENT: Examination is grossly unremarkable. NECK: Supple. Full range of motion. No adenopathy. Neck veins are flat. CARDIOVASCULAR: Examination reveals regular rhythm and rate. Heart rate in the mid 70s. S1, S2 normal. There is no murmur. Heart sounds are distant. LUNGS: Lungs reveal a few scattered mild crackles. No wheezes or rhonchi. ABDOMEN: Soft. Bowel sounds are heard. EXTREMITIES: Intact. No cyanosis, clubbing or edema. SKIN: Without rash. NEUROLOGIC: Neurologic examination is nonfocal. LABS/IMAGING: Reviewed. White count 6.7, hemoglobin 9.5, hematocrit 31.0, platelet count 271,000. D- dimer 4.04. APTT was 21.5. Sodium, potassium and chloride normal. CO2 normal. Anion gap 7. BUN and creatinine were 24 and 1.19. The rest of the labs look okay. Of note was the fact that troponins were 0.049, 0.042 and 0.037. N-terminal proBNP elevated at 3900. Microbiology is currently negative. Chest x-ray in my opinion shows small lung volumes, small bilateral effusions and maybe some cephalization. Repeat chest x-ray shows similar findings. MEDICATIONS: Reviewed. They include Tylenol, vitamin C, Dulcolax, calcium polycarbophil or FiberCon, vitamin B12, Decadron, Depakote Sprinkle, Lovenox, vitamin D2, famotidine, ferrous sulfate, Lasix, guaifenesin DM, eye drops, levothyroxine, Imodium, Ativan, Narcan, potassium chloride, potassium replacement and zinc sulfate. ASSESSMENT: 1. Acute COVID-19 infection with mild pneumonitis and mild hypoxemia. 2. Dementia. 3. Hypothyroidism. 4. Hypertension. 5. Hyperlipidemia. PLAN: The patient is doing relatively well. Ventilation-perfusion lung scan was low probability. Will continue on Decadron and Lovenox. No additional recommendations are made. The patient also is on vitamin C, vitamin D3 and zinc. No need for Remdesivir. Will continue to follow. Discharge hopefully within the next 24 to 48 hours if she continues to do well. MMJABARIL / APOORVAN: [id number] /
--- NOTE | 2020-08-26 18:22 | P.PN ---
Subjective Progress Note Date: 08/26/20 Rosa Maria Robin, is an 89-year-old female, who resides currently at [facility], who was diagnosed with Covid 19 infection recently, patient started having worsening cough and shortness of breath, she was sent to [facility] for further evaluation. Patient was evaluated in ER her vital examination on presentation revealed a temperature of 100 pulse 88 respiration 22 blood pressure 142/76 pulse ox 100% on 2 L nasal cannula her white blood count was 12.1 hemoglobin 10.4 platelet count 31.8 d-dimer was elevated at 4.04 BUN elevated at 18 creatinine 1.29 potassium was low at 3.0. Patient was admitted to medical floor for further evaluation and treatment, VQ scan was ordered due to elevated d-dimer. Pulmonary consultation was requested, patient was started on IV dexamethasone and subcu Lovenox. Patient has a known history of advanced dementia, she also has a known history of hypertension, hypothyroidism, and history of rheumatoid arthritis. On review of systems patient is alert, confused, in no apparent distress she is maintained on oxygen 2 L via nasal cannula and seems to be comfortable while lying in bed, she does not verbalize any complaints at this time. On 08/26/2020 patient was seen and examined on the medical floor she is alert, confused in no apparent distress she is having shortness of breath and some wheezing otherwise there is no symptoms she is sitting up in bed and eating her meal, she is denying any symptoms at this time, repeat chest x-ray reveals evidence of perihilar and basilar infiltrates Objective - Vital Signs Vital signs: Vital Signs Temp 98.1 F 08/26/20 13:20 Pulse 81 08/26/20 13:20 Resp 18 08/26/20 13:20 BP 122/71 08/26/20 13:20 Pulse Ox 97 08/26/20 13:20 Intake & Output 08/25/20 08/26/20 08/26/20 18:59 06:59 18:59 Intake Total 120 Balance 120 Weight 40.5 kg 42 kg Intake: Oral 120 Other: Voiding Method Diaper Diaper Diaper Incontinent Incontinent Incontinent # Voids 1 0 - Exam In general patient is alert and oriented 3 in no apparent distress HEENT head normocephalic and atraumatic Neck is supple no JVD no goiter no lymphadenopathy Chest exam reveals fine crackles in both lung nelson no wheezing Cardiac exam reveals regular heart sounds S1 and S2 no gallops no murmurs Abdomen is soft nontender no organomegaly with normal bowel sounds Extremity exam reveals minimal edema no cyanosis or clubbing Neurological examination reveals no gross focal neurological deficit - Labs CBC & Chem 7: 08/26/20 10:59 08/26/20 10:59 Labs: Abnormal Lab Results - Last 24 Hours (Table) 08/26/20 08/26/20 Range/Units 10:59 10:59 RBC 3.68 L (3.80-5.40) m/uL Hgb 9.5 L (11.4-16.0) gm/dL Hct 31.0 L (34.0-46.0) % MCHC 30.5 L (31.0-37.0) g/dL Lymphocytes # 0.5 L (1.0-4.8) k/uL BUN 24 H (7-17) mg/dL Creatinine 1.19 H (0.52-1.04) mg/dL Glucose 102 H (74-99) mg/dL Calcium 8.3 L (8.4-10.2) mg/dL Total Protein 6.2 L (6.3-8.2) g/dL Albumin 3.2 L (3.5-5.0) g/dL Microbiology - Last 24 Hours (Table) 08/25/20 02:13 Blood Culture - Preliminary Blood No Growth after 24 hours Assessment and Plan Plan: 1. COVID-19 infection, with pneumonia related to Covid 19 infection 2. Elevated d-dimer rule out pulmonary embolism patient has elevated BUN and creatinine and computed tomography scan angiogram of the chest was not ordered VQ scan was ordered Will await the results 3. Underlying history of hypothyroidism Will resume Synthroid 4. Underlying history of Alzheimer's disease with advanced dementia 5. Underlying history of rheumatoid arthritis 6. Hypokalemia will correct during this admission 7. Underlying history of hypertension At this time patient is admitted to medical floor she was started on IV dexamethasone and subcu Lovenox pulmonary consultation was requested will follow closely
[2020-08-26] MEDS: LATANOPROST 0.005% OPHTH DROPS 2.5 ML BTL BOTH EYES SCH (20:57)
[2020-08-26] MEDS: DIVALPROEX SPRINKLE 125 MG CAP.SPRINK PO SCH (20:57)
[2020-08-27] MEDS: LEVOTHYROXINE 75 MCG TAB PO SCH (05:48)
[2020-08-27] MEDS: ENOXAPARIN 40 MG/0.4 ML SYRINGE SQ SCH (08:40)
[2020-08-27] MEDS: DEXAMETHASONE SOD PHOSPHATE 10 MG/ML 1 ML VIAL IV SCH (08:40)
[2020-08-27] MEDS: LORazepam 0.5 MG TAB PO SCH (08:41)
[2020-08-27] MEDS: SODIUM CHLORIDE 0.9% 1,000 ML IV SCH ×2 (08:41→20:48)
[2020-08-27] MEDS: ASCORBIC ACID 500 MG TAB PO SCH ×2 (08:41→21:14)
[2020-08-27] MEDS: CYANOCOBALAMIN 500 MCG TAB PO SCH (08:41)
[2020-08-27] MEDS: FAMOTIDINE 20 MG TAB PO SCH (08:41)
[2020-08-27] MEDS: FERROUS SULFATE 325 MG TAB PO SCH (08:41)
[2020-08-27] MEDS: ZINC SULFATE 220 MG CAP PO SCH (08:41)
[2020-08-27] MEDS: FUROSEMIDE 20 MG TAB PO SCH (08:41)
[2020-08-27 08:46] LABS: Basophils % (A) 0 %; Eosinophils % (A) 0 %; HCT 30.7 % (34.0-46.0); HGB 9.9 gm/dL (11.4-16.0); Lymphocytes # (A) 1.4 k/uL (1.0-4.8); Lymphocytes % (A) 19 %; MCH 26.8 pg (25.0-35.0); MCHC 32.1 g/dL (31.0-37.0); MCV 83.3 fL (80.0-100.0); Monocytes # (A) 0.5 k/uL (0-1.0); Monocytes % (A) 7 %; Neutrophils # (A) 5.6 k/uL (1.3-7.7); Neutrophils % (A) 73 %; Platelet Count 243 k/uL (150-450); RBC 3.69 m/uL (3.80-5.40); RDW 13.7 % (11.5-15.5); WBC 7.7 k/uL (3.8-10.6)
[2020-08-27 08:58] LABS: Albumin 3.1 g/dL (3.5-5.0); Calcium 8.3 mg/dL (8.4-10.2); Potassium 3.7 mmol/L (3.5-5.1); Total Bilirubin 0.3 mg/dL (0.2-1.3); Total Protein 6.1 g/dL (6.3-8.2)
[2020-08-27] MEDS: ALBUTEROL HFA INHALER INHALATION PRN ×3 (11:16→18:58)
--- NOTE | 2020-08-27 12:15 | CDI ---
Documentation Clarification Form Date: 08/27/2020 12:04:05 PM From: Christi Thomas RN, CCDS Admit Date: 08/25/2020 03:19:00 AM Patient Name: Rosa Maria Robin Visit Number: [id number] ATTENTION: The Clinical Documentation Specialists (CDI) and [facility] Coding Staff appreciate your assistance in clarifying documentation. Please respond to the clarification below the line at the bottom and electronically sign. The CDI & [facility] Coding staff will review the response and follow-up if needed. Please note: Queries are made part of the Legal Health Record. If you have any questions, please contact the author of this message via ITS. Dr. Genevieve Singh Anemia is documented in the PMH of the H&P and Progress Notes and requires further specificity . History/Risk Factors: Anemia, Ulcer, diverticulosis, Covid 19 Pneumonia Clinical indicators: 08/25-08/27 Hemoglobin: 10.4/9.5/9.9 08/25-08/27 Hematocrit: 31.8/31/30.7 Treatment: B-12 1000 mcg PO QD Vitamin D2 50,000 units PO Q Feosol 325 mg PO QD In order to capture the severity of condition, please clarify the type of anemia and etiology if known:. Chronic blood loss anemia Iron deficiency anemia Nutritional anemia Anemia of chronic disease Unable to determine Other, please specify (Last Form Revision: November 2019) iron deficiency anemia MTDD
--- NOTE | 2020-08-27 14:45 | P.PN ---
Subjective Progress Note Date: 08/27/20 Principal diagnosis: Dyspnea related to acute coronary 19 pneumonitis This is a 89-year-old female patient who has a history of dementia, hyperlipidemia, hypertension, mitral valve prolapse, hypothyroidism. Lifelong nonsmoker. She resides at [facility] and was found to be more short of breath than usual. He did test positive there on 08/24/2020. She is brought here early this morning for the shortness of breath. Chest x-ray shows perihilar and basilar infiltrates and VQ scan revealed low probability for pulmonary embolism. White count 12.1. Hemoglobin 10.4. Lymphocytes 1.4. D- dimer 4.04. Sodium 138. Potassium 3.0. Creatinine 1.29. Troponin 0.049, 0.042, 0.037. ProBNP 3900. He was initiated on dexamethasone and Lovenox. She is seen today in consultation on the selective care unit. She does know that she is at the hospital. She is oriented to person and place only. Currently maintaining O2 saturations in the mid to upper 90s on room air. She's afebrile. Hemodynamically stable. On 08/27/2020 patient seen in follow-up on [facility] floor. He is doing well, she is on room air, her pulse ox is 98%, she is resting comfortably in bed, breathing comfortably, no cough or congestion or chest discomfort. She has 0.9, saline infusing a rate of 50 ML per hour, he remains on oral Decadron and Lovenox, had no fever or chills, his labs have been reviewed. Tolerating oral intake, no nausea vomiting diarrhea, repeat chest x-ray reveals evidence of perihilar and basilar infiltrates. Clinically has remained stable Objective - Vital Signs Vital signs: Vital Signs Temp 98.1 F 08/27/20 10:22 Pulse 77 08/27/20 10:22 Resp 26 H 08/27/20 10:22 BP 148/82 08/27/20 10:22 Pulse Ox 98 08/27/20 10:22 Intake & Output 08/26/20 08/27/20 08/27/20 18:59 06:59 18:59 Intake Total 240 Balance 240 Weight 39 kg Intake: Oral 240 Other: Voiding Method Diaper Diaper Diaper Incontinent Incontinent Incontinent # Voids 0 3 - Exam GENERAL EXAM: Alert, confused, and room air, with pulse ox of 90% comfortable in no apparent distress. HEAD: Normocephalic/atraumatic. EYES: Normal reaction of pupils, equal size. Conjunctiva pink, sclera white. NOSE: Clear with pink turbinates. THROAT: No erythema or exudates. NECK: No masses, no JVD, no thyroid enlargement, no adenopathy. CHEST: No chest wall deformity. Symmetrical expansion. LUNGS: Equal air entry with no crackles, wheeze, rhonchi or dullness. CVS: Regular rate and rhythm, normal S1 and S2, no gallops, no murmurs, no rubs ABDOMEN: Soft, nontender. No hepatosplenomegaly, normal bowel sounds, no guarding or rigidity. EXTREMITIES: No clubbing, no edema, no cyanosis, 2+ pulses and upper and lower extremities. MUSCULOSKELETAL: Muscle strength and tone normal. SPINE: No scoliosis or deformity SKIN: No rashes CENTRAL NERVOUS SYSTEM: Alert and oriented -3. No focal deficits, tone is normal in all 4 extremities. PSYCHIATRIC: Alert and oriented -3. Appropriate affect. Intact judgment and insight. - Labs CBC & Chem 7: 08/27/20 08:05 08/27/20 08:05 Labs: Abnormal Lab Results - Last 24 Hours (Table) 08/27/20 08/27/20 Range/Units 08:05 08:05 RBC 3.69 L (3.80-5.40) m/uL Hgb 9.9 L (11.4-16.0) gm/dL Hct 30.7 L (34.0-46.0) % Chloride 108 H (98-107) mmol/L BUN 33 H (7-17) mg/dL Creatinine 1.16 H (0.52-1.04) mg/dL Calcium 8.3 L (8.4-10.2) mg/dL Total Protein 6.1 L (6.3-8.2) g/dL Albumin 3.1 L (3.5-5.0) g/dL Microbiology - Last 24 Hours (Table) 08/25/20 02:13 Blood Culture - Preliminary Blood No Growth after 48 hours Assessment and Plan Plan: Assessment: #1. Acute coronary 19 infection with mild pneumonitis and mild hypoxemia, and the hypoxemia has resolved, and patient is currently maintaining O2 sat above 95% on room air #2. History of underlying dementia #3. Hypothyroidism #4. Hypertension #5. Hyperlipidemia Plan: Continue current medical treatmentsm oral steroids, and Decadron, continue vitamin C vitamin D3 and zinc. No acute overnight, she is breathing comfortably, from pulmonary perspective she can be considered for discharge today and she can finish outpatient course of oral Decadron for a total of 10 days. follow up in the office in 2 weeks after a negative PCR test I performed a history & physical examination of the patient and discussed their management with my nurse practitioner, Tamanna Bragg. I reviewed the nurse practitioner's note and agree with the documented findings and plan of care. Lung sounds are positive for diminished breath sounds. The findings and the impression was discussed with the patient. I attest to the documentation by the nurse practitioner. Time with Patient: Less than 30
--- NOTE | 2020-08-27 17:10 | P.PN ---
Subjective Progress Note Date: 08/27/20 Rosa Maria Robin, is an 89-year-old female, who resides currently at [facility], who was diagnosed with Covid 19 infection recently, patient started having worsening cough and shortness of breath, she was sent to [facility] for further evaluation. Patient was evaluated in ER her vital examination on presentation revealed a temperature of 100 pulse 88 respiration 22 blood pressure 142/76 pulse ox 100% on 2 L nasal cannula her white blood count was 12.1 hemoglobin 10.4 platelet count 31.8 d-dimer was elevated at 4.04 BUN elevated at 18 creatinine 1.29 potassium was low at 3.0. Patient was admitted to medical floor for further evaluation and treatment, VQ scan was ordered due to elevated d-dimer. Pulmonary consultation was requested, patient was started on IV dexamethasone and subcu Lovenox. Patient has a known history of advanced dementia, she also has a known history of hypertension, hypothyroidism, and history of rheumatoid arthritis. On review of systems patient is alert, confused, in no apparent distress she is maintained on oxygen 2 L via nasal cannula and seems to be comfortable while lying in bed, she does not verbalize any complaints at this time. On 08/26/2020 patient was seen and examined on the medical floor she is alert, confused in no apparent distress she is having shortness of breath and some wheezing otherwise there is no symptoms she is sitting up in bed and eating her meal, she is denying any symptoms at this time, repeat chest x-ray reveals evidence of perihilar and basilar infiltrates. On 08/27/2020 patient was seen and examined on the medical floor she is alert, confused in no apparent distress there is no fever or chills no headache or dizziness no chest pain she is still complaining of cough otherwise she does not verbalize any complaints Objective - Vital Signs Vital signs: Vital Signs Temp 98.4 F 08/27/20 14:00 Pulse 92 08/27/20 14:00 Resp 17 08/27/20 14:00 BP 104/62 08/27/20 14:00 Pulse Ox 97 08/27/20 14:00 Intake & Output 08/26/20 08/27/20 08/27/20 18:59 06:59 18:59 Intake Total 240 Balance 240 Weight 39 kg Intake: Oral 240 Other: Voiding Method Diaper Diaper Diaper Incontinent Incontinent Incontinent # Voids 0 3 1 # Bowel Movements 1 - Exam In general patient is alert and oriented 3 in no apparent distress HEENT head normocephalic and atraumatic Neck is supple no JVD no goiter no lymphadenopathy Chest exam reveals fine crackles in both lung nelson no wheezing Cardiac exam reveals regular heart sounds S1 and S2 no gallops no murmurs Abdomen is soft nontender no organomegaly with normal bowel sounds Extremity exam reveals minimal edema no cyanosis or clubbing Neurological examination reveals no gross focal neurological deficit - Labs CBC & Chem 7: 08/27/20 08:05 08/27/20 08:05 Labs: Abnormal Lab Results - Last 24 Hours (Table) 08/27/20 08/27/20 Range/Units 08:05 08:05 RBC 3.69 L (3.80-5.40) m/uL Hgb 9.9 L (11.4-16.0) gm/dL Hct 30.7 L (34.0-46.0) % Chloride 108 H (98-107) mmol/L BUN 33 H (7-17) mg/dL Creatinine 1.16 H (0.52-1.04) mg/dL Calcium 8.3 L (8.4-10.2) mg/dL Total Protein 6.1 L (6.3-8.2) g/dL Albumin 3.1 L (3.5-5.0) g/dL Microbiology - Last 24 Hours (Table) 08/25/20 02:13 Blood Culture - Preliminary Blood No Growth after 48 hours Assessment and Plan Plan: 1. COVID-19 infection, with pneumonia related to Covid 19 infection 2. Elevated d-dimer rule out pulmonary embolism patient has elevated BUN and creatinine and computed tomography scan angiogram of the chest was not ordered VQ scan was ordered Will await the results 3. Underlying history of hypothyroidism Will resume Synthroid 4. Underlying history of Alzheimer's disease with advanced dementia 5. Underlying history of rheumatoid arthritis 6. Hypokalemia will correct during this admission 7. Underlying history of hypertension At this time patient is admitted to medical floor she was started on IV dexamethasone and subcu Lovenox pulmonary consultation was requested will follow closely
[2020-08-27] MEDS: LATANOPROST 0.005% OPHTH DROPS 2.5 ML BTL BOTH EYES SCH (21:14)
[2020-08-27] MEDS: dexAMETHasone 4 MG TAB PO SCH (21:14)
[2020-08-27] MEDS: DIVALPROEX SPRINKLE 125 MG CAP.SPRINK PO SCH (21:14)
[2020-08-28] MEDS: LEVOTHYROXINE 75 MCG TAB PO SCH (05:37)
[2020-08-28] MEDS: ALBUTEROL HFA INHALER INHALATION PRN ×2 (08:20→12:12)
[2020-08-28] MEDS: FAMOTIDINE 20 MG TAB PO SCH (09:09)
[2020-08-28] MEDS: FUROSEMIDE 20 MG TAB PO SCH (09:09)
[2020-08-28] MEDS: ASCORBIC ACID 500 MG TAB PO SCH ×2 (09:09→21:26)
[2020-08-28] MEDS: FERROUS SULFATE 325 MG TAB PO SCH (09:09)
[2020-08-28] MEDS: LORazepam 0.5 MG TAB PO SCH (09:09)
[2020-08-28] MEDS: ZINC SULFATE 220 MG CAP PO SCH (09:09)
[2020-08-28] MEDS: dexAMETHasone 4 MG TAB PO SCH ×2 (09:09→21:25)
[2020-08-28] MEDS: CYANOCOBALAMIN 500 MCG TAB PO SCH (09:09)
[2020-08-28] MEDS: ENOXAPARIN 40 MG/0.4 ML SYRINGE SQ SCH (09:09)
[2020-08-28] MEDS: SODIUM CHLORIDE 0.9% 1,000 ML IV SCH (12:32)
[2020-08-28 13:05] VITALS: BMI 16.2
--- NOTE | 2020-08-28 15:19 | P.PN ---
Subjective Progress Note Date: 08/28/20 Principal diagnosis: Dyspnea related to acute coronary 19 pneumonitis This is a 89-year-old female patient who has a history of dementia, hyperlipidemia, hypertension, mitral valve prolapse, hypothyroidism. Lifelong nonsmoker. She resides at [facility] and was found to be more short of breath than usual. He did test positive there on 08/24/2020. She is brought here early this morning for the shortness of breath. Chest x-ray shows perihilar and basilar infiltrates and VQ scan revealed low probability for pulmonary embolism. White count 12.1. Hemoglobin 10.4. Lymphocytes 1.4. D- dimer 4.04. Sodium 138. Potassium 3.0. Creatinine 1.29. Troponin 0.049, 0.042, 0.037. ProBNP 3900. He was initiated on dexamethasone and Lovenox. She is seen today in consultation on the selective care unit. She does know that she is at the hospital. She is oriented to person and place only. Currently maintaining O2 saturations in the mid to upper 90s on room air. She's afebrile. Hemodynamically stable. On 08/27/2020 patient seen in follow-up on [facility]. He is doing well, she is on room air, her pulse ox is 98%, she is resting comfortably in bed, breathing comfortably, no cough or congestion or chest discomfort. She has 0.9, saline infusing a rate of 50 ML per hour, he remains on oral Decadron and Lovenox, had no fever or chills, his labs have been reviewed. Tolerating oral intake, no nausea vomiting diarrhea, repeat chest x-ray reveals evidence of perihilar and basilar infiltrates. Clinically has remained stable On 08/28/2020 patient seen in follow-up on medical surgical floor, she is calm and comfortable, she is on room air, with pulse ox of 95%, breathing comfortably, no combines chest discomfort, no worsening dyspnea or cough. Lung sounds have been stable, she's been afebrile. She has had no acute events overnight. She continues on Decadron at 4 mg twice daily, she is on the daily dose of oral Lasix, she is on cough medicine, Pepcid, vitamin C, vitamin D, zinc supplement, patient is confused, but she is alert, she's had no fever or chills, denies any headaches, or dizziness, no chest pain. Objective - Vital Signs Vital signs: Vital Signs Temp 97.5 F L 08/28/20 13:50 Pulse 89 08/28/20 13:50 Resp 22 08/28/20 13:50 BP 154/77 08/28/20 13:50 Pulse Ox 98 08/28/20 13:50 Intake & Output 08/27/20 08/28/20 08/28/20 18:59 06:59 18:59 Weight 43 kg 43 kg Other: Voiding Method Diaper Diaper Diaper Incontinent Incontinent # Voids 4 1 # Bowel Movements 1 - Exam GENERAL EXAM: Alert, confused, and room air, with pulse ox of 90% comfortable in no apparent distress. HEAD: Normocephalic/atraumatic. EYES: Normal reaction of pupils, equal size. Conjunctiva pink, sclera white. NOSE: Clear with pink turbinates. THROAT: No erythema or exudates. NECK: No masses, no JVD, no thyroid enlargement, no adenopathy. CHEST: No chest wall deformity. Symmetrical expansion. LUNGS: Equal air entry with no crackles, wheeze, rhonchi or dullness. CVS: Regular rate and rhythm, normal S1 and S2, no gallops, no murmurs, no rubs ABDOMEN: Soft, nontender. No hepatosplenomegaly, normal bowel sounds, no guarding or rigidity. EXTREMITIES: No clubbing, no edema, no cyanosis, 2+ pulses and upper and lower extremities. MUSCULOSKELETAL: Muscle strength and tone normal. SPINE: No scoliosis or deformity SKIN: No rashes CENTRAL NERVOUS SYSTEM: Alert and oriented -3. No focal deficits, tone is normal in all 4 extremities. PSYCHIATRIC: Alert and oriented -3. Appropriate affect. Intact judgment and insight. - Labs CBC & Chem 7: 08/27/20 08:05 08/27/20 08:05 Labs: Microbiology - Last 24 Hours (Table) 08/25/20 02:13 Blood Culture - Preliminary Blood No Growth after 72 hours Assessment and Plan Plan: Assessment: #1. Acute COVID 19 infection with mild pneumonitis and mild hypoxemia, and the hypoxemia has resolved, and patient is currently maintaining O2 sat above 95% on room air #2. History of underlying dementia #3. Hypothyroidism #4. Hypertension #5. Hyperlipidemia Plan: Vital signs have remained stable, she has been afebrile, patient is maintaining O2 saturation above 95% on room air, she is breathing comfortably, no fever or chills, from pulmonary perspective can be considered for discharge, we'll defer to the attending physician, pulmonary service will sign off and follow on as- needed basis. I performed a history & physical examination of the patient and discussed their management with my nurse practitioner, Tamanna Bragg. I reviewed the nurse practitioner's note and agree with the documented findings and plan of care. Lung sounds are positive for diminished breath sounds. The findings and the impression was discussed with the patient. I attest to the documentation by the nurse practitioner. Time with Patient: Less than 30
--- NOTE | 2020-08-28 18:41 | P.PN ---
Subjective Progress Note Date: 08/28/20 Rosa Maria Robin, is an 89-year-old female, who resides currently at [facility], who was diagnosed with Covid 19 infection recently, patient started having worsening cough and shortness of breath, she was sent to [facility] for further evaluation. Patient was evaluated in ER her vital examination on presentation revealed a temperature of 100 pulse 88 respiration 22 blood pressure 142/76 pulse ox 100% on 2 L nasal cannula her white blood count was 12.1 hemoglobin 10.4 platelet count 31.8 d-dimer was elevated at 4.04 BUN elevated at 18 creatinine 1.29 potassium was low at 3.0. Patient was admitted to medical floor for further evaluation and treatment, VQ scan was ordered due to elevated d-dimer. Pulmonary consultation was requested, patient was started on IV dexamethasone and subcu Lovenox. Patient has a known history of advanced dementia, she also has a known history of hypertension, hypothyroidism, and history of rheumatoid arthritis. On review of systems patient is alert, confused, in no apparent distress she is maintained on oxygen 2 L via nasal cannula and seems to be comfortable while lying in bed, she does not verbalize any complaints at this time. On 08/26/2020 patient was seen and examined on the medical floor she is alert, confused in no apparent distress she is having shortness of breath and some wheezing otherwise there is no symptoms she is sitting up in bed and eating her meal, she is denying any symptoms at this time, repeat chest x-ray reveals evidence of perihilar and basilar infiltrates. On 08/27/2020 patient was seen and examined on the medical floor she is alert, confused in no apparent distress there is no fever or chills no headache or dizziness no chest pain she is still complaining of cough otherwise she does not verbalize any complaints On 08/28/2020 patient was seen and examined on the medical floor she is alert, confused in no apparent distress there is no fever or chills no headache or dizziness she has some shortness of breath when she tries to do any activity she has occasional cough otherwise there is no complaints there is no fever or chills no headache or dizziness no chest pain no nausea or vomiting no abdominal pain no diarrhea and no urinary symptoms patient was evaluated by physical therapy and occupational therapy and was deemed not safe to return to [facility] due to severe weakness at this time possible discharge to a assisted for rehabilitation tomorrow Objective - Vital Signs Vital signs: Vital Signs Temp 97.5 F L 08/28/20 13:50 Pulse 89 08/28/20 13:50 Resp 22 08/28/20 13:50 BP 154/77 08/28/20 13:50 Pulse Ox 98 08/28/20 13:50 Intake & Output 08/27/20 08/28/20 08/28/20 18:59 06:59 18:59 Weight 43 kg 43 kg Other: Voiding Method Diaper Diaper Diaper Incontinent Incontinent # Voids 4 1 # Bowel Movements 1 - Exam In general patient is alert and oriented 3 in no apparent distress HEENT head normocephalic and atraumatic Neck is supple no JVD no goiter no lymphadenopathy Chest exam reveals fine crackles in both lung nelson no wheezing Cardiac exam reveals regular heart sounds S1 and S2 no gallops no murmurs Abdomen is soft nontender no organomegaly with normal bowel sounds Extremity exam reveals minimal edema no cyanosis or clubbing Neurological examination reveals no gross focal neurological deficit - Labs CBC & Chem 7: 08/27/20 08:05 08/27/20 08:05 Labs: Microbiology - Last 24 Hours (Table) 08/25/20 02:13 Blood Culture - Preliminary Blood No Growth after 72 hours Assessment and Plan Plan: 1. COVID-19 infection, with pneumonia related to Covid 19 infection 2. Elevated d-dimer rule out pulmonary embolism patient has elevated BUN and creatinine and computed tomography scan angiogram of the chest was not ordered VQ scan was ordered Will await the results 3. Underlying history of hypothyroidism Will resume Synthroid 4. Underlying history of Alzheimer's disease with advanced dementia 5. Underlying history of rheumatoid arthritis 6. Hypokalemia will correct during this admission 7. Underlying history of hypertension At this time patient is admitted to medical floor she was started on IV dexamethasone and subcu Lovenox pulmonary consultation was requested will follow closely
[2020-08-28] MEDS: DIVALPROEX SPRINKLE 125 MG CAP.SPRINK PO SCH (21:26)
[2020-08-28] MEDS: LATANOPROST 0.005% OPHTH DROPS 2.5 ML BTL BOTH EYES SCH (21:26)
[2020-08-29] MEDS: LEVOTHYROXINE 75 MCG TAB PO SCH (05:33)
[2020-08-29 05:49] VITALS: RESP 18
[2020-08-29] MEDS: LORazepam 0.5 MG TAB PO SCH (08:31)
[2020-08-29] MEDS: CYANOCOBALAMIN 500 MCG TAB PO SCH (08:31)
[2020-08-29] MEDS: FAMOTIDINE 20 MG TAB PO SCH (08:31)
[2020-08-29] MEDS: FUROSEMIDE 20 MG TAB PO SCH (08:31)
[2020-08-29] MEDS: ASCORBIC ACID 500 MG TAB PO SCH (08:31)
[2020-08-29] MEDS: FERROUS SULFATE 325 MG TAB PO SCH (08:31)
[2020-08-29] MEDS: ZINC SULFATE 220 MG CAP PO SCH (08:33)
[2020-08-29] MEDS ORDERED: ERGOCALCIFEROL 50,000 UNIT CAP PO SCH (09:00)
[2020-08-29] MEDS ORDERED: ENOXAPARIN 30 MG/0.3 ML SYRINGE SQ SCH (09:00)
[2020-08-29] MEDS: ALBUTEROL HFA INHALER INHALATION PRN ×2 (09:03→12:03)
[2020-08-29] MEDS: dexAMETHasone 4 MG TAB PO SCH (13:32)
--- NOTE | 2020-08-29 13:38 | PN ---
PROGRESS NOTE PULMONARY/CRITICAL CARE PROGRESS NOTE: DATE OF SERVICE: August 29, 2020 This is an 89-year-old female admitted back on August 25. She was admitted with a diagnosis of acute COVID-19 infection, with mild pneumonia and mild hypoxemia. The patient has currently been on room air for the last couple of days. She does have a history of underlying dementia, hypothyroidism, hypertension, and hyperlipidemia. The patient is resting comfortably in bed. The patient could be discharged. She is not having any respiratory issues whatsoever. She has been on room air for the last 3 days. PHYSICAL EXAMINATION: VITAL SIGNS: Current vital signs are reviewed. Temperature is 97.6, heart rate 79, respiratory rate 18, blood pressure 138/74, mean 95, room air saturation 97%. GENERAL: Appears in no acute distress. HEENT: Examination is grossly unremarkable. NECK: Supple. Full range of motion. No adenopathy. Neck veins are flat. CARDIOVASCULAR: Examination reveals regular rhythm and rate. S1, S2 normal. No S3, S4, or murmur. LUNGS: Reveal a few scattered mild rhonchi. No wheezes or crackles. ABDOMEN: Soft. Bowel sounds are heard. EXTREMITIES: Are intact. No edema. SKIN: Without rash. NEUROLOGIC: Examination is brief but nonfocal. The patient appears to be happily demented. LABS: Labs are reviewed. Nothing new. Her last COVID test was August 28. Microbiologic studies are negative. No recent chest x-ray. CURRENT MEDICATIONS: Current medications are reviewed. She is on Tylenol, albuterol inhaler which can be discontinued, vitamin C, Dulcolax, FiberCon, vitamin B12, Decadron 4 mg b.i.d., Depakote, Lovenox, vitamin D2, Pepcid, iron, Lasix, Robitussin DM, eye drops, Synthroid, Imodium, Ativan, Narcan, potassium replacement, and zinc. ASSESSMENT: 1. Acute COVID-19 infection with mild pneumonitis/pneumonia, and mild/minimal hypoxemia, the patient has been on room air for the last couple of days without respiratory issues. 2. History of underlying dementia. 3. Hypothyroidism. 4. Hypertension. 5. History of hyperlipidemia. PLAN: The patient could be discharged. No additional recommendations are made. The albuterol inhaler will be discontinued. We will follow only as needed. MMODL / IJN: [id number] /
--- NOTE | 2020-08-29 14:17 | P.PN ---
Subjective On-call hospitalist covering Dr. Singh This is a pleasant 89 years old female with multiple medical problems including hypertension, hyperlipidemia, hypothyroidism, mitral valve prolapse. She was admitted on 08/29 worsening dyspnea. Patient was recently diagnosed with covid infection. Also she had fever on admission of 100. Currently patient is afebrile and she is saturating 95-97% on room air. Patient has been evaluated by director of dance and cleared her for discharge Patient denies diarrhea or GI symptoms. No urinary complaints However today patient is still tachypneic. Her troponin were elevated on admission at 0.04, 0.04 and 0.03. This is new for the patient She had echocardiogram done on a previous admission showed ejection fraction of 55-60%. Her labs from 10/28. Stable with creatinine 1.1, electrolytes normal. CBC is st able. Objective - Vital Signs Vital signs: Vital Signs Temp 97.6 F 08/29/20 10:00 Pulse 79 08/29/20 10:00 Resp 18 08/29/20 10:00 BP 138/74 08/29/20 10:00 Pulse Ox 97 08/29/20 10:00 Intake & Output 08/28/20 08/29/20 08/29/20 18:59 06:59 18:59 Weight 43 kg 43.5 kg Other: Voiding Method Diaper Diaper Diaper # Voids 3 2 # Bowel Movements 3 - Exam -GENERAL: The patient is alert and oriented x3, not in any acute distress. Well developed, well nourished. Tachypneic HEENT: Pupils are round and equally reacting to light. EOMI. No scleral icterus. No conjunctival pallor. Normocephalic, atraumatic. No pharyngeal erythema. No thyromegaly. CARDIOVASCULAR: S1 and S2 present. No murmurs, rubs, or gallops. PULMONARY: Chest is clear to auscultation, no wheezing or crackles. ABDOMEN: Soft, nontender, nondistended, normoactive bowel sounds. No palpable organomegaly. MUSCULOSKELETAL: No joint swelling or deformity. EXTREMITIES: No cyanosis, clubbing, or pedal edema. NEUROLOGICAL: Gross neurological examination did not reveal any focal deficits. SKIN: No rashes. no petechiae. - Labs CBC & Chem 7: 08/27/20 08:05 08/27/20 08:05 Labs: Abnormal Lab Results - Last 24 Hours (Table) 08/28/20 Range/Units 15:30 Coronavirus (PCR) Detected A (Not Detectd) Microbiology - Last 24 Hours (Table) 08/25/20 02:13 Blood Culture - Preliminary Blood No Growth after 96 hours Assessment and Plan Assessment: -Acute Covid infection, with no hypoxia. Patient was cleared for discharge by director of dance. Continue with dexamethasone, vitamin C and zinc. Also she is on Lovenox -Patient is with elevated troponin, new finding. I will consult transit department clerk and once cleared the patient then she may consider for discharge if no further workup is warranted -Hypertension -Hyperlipidemia -Hypothyroidism -History of mitral valve prolapse DVT prophylaxis: Lovenox GI prophylaxis: Pepcid Prognosis is guarded
[2020-08-29 14:58] VITALS: BP 148/69; PULSE 81; TEMP 97.9
--- NOTE | 2020-08-29 16:50 | P.CRDCN ---
History of Present Illness History of present illness: This is an 89-year-old female patient with past medical history of hypertension, hyperlipidemia, mitral valve replacement, dementia. Patient is unable to provide much history. Patient was initially transferred from [facility] secondary to reported dyspnea and was found to be positive for Covid 19 on 08/25/2020. Initial blood work showed troponin 0.049, 0.042, 0.037. Addit ionally patient has CK D with a creatinine 1.29, proBNP was elevated at 3900, hemoglobin 10.4, white blood cell 12.1. Cardiology was consult it secondary to mildly elevated troponins. Per nursing patient has not been complaining of any chest pain or shortness breath. Patient has been improving with possible discharge back to facility sometime soon. Patient had an echocardiogram from June 2020 which showed ejection fraction 55-60%, dilated left atrium, bioprosthetic mitral valve with a mean gradient of 8 and RVSP of 41. Review Of Systems: Review of systems Limited secondary to dementia however patient denying any pain or shortness of breath currently EKG: EKG shows normal sinus rhythm, left axis deviation, left ventricular hypertrophy with nonspecific ST depressions in the lateral leads Physical examination: Gen: This is an 89-year-old female. Patient is resting in bed and appears to be comfortable and in no acute distress. No respiratory distress is noted. VS: Afebrile, blood pressure 148/69, heart rate 81, oxygen saturation 98% on room air HEENT: Head is atraumatic, normocephalic. Pupils equal, round. Sclerae is anicteric. NECK: Supple. No JVD. No lymphadenopathy. No thyromegaly. LUNGS: Scattered expiratory wheeze. No intercostal retractions. HEART: Regular rate and rhythm. No murmur ABDOMEN: Soft. Bowel sounds are present. No masses. No tenderness. EXTREMITIES: No pedal edema. No calf tenderness. NEUROLOGICAL: Patient is awake, alert and oriented x1. Assessment: Abnormal troponin, mildly elevated secondary to Covid 19 infection. Patient denies any chest pain and do not suspect acute coronary syndrome Hypertension Hyperlipidemia Dementia Status post bioprosthetic mitral valve replacement Plan: Patient has been recovering well from her coronavirus infection. Do not suspect any acute coronary syndrome. Troponins mildly elevated secondary to infection. Patient is not a good interventional candidate. Recent echocardiogram with normal ejection fraction 55-60%. Patient appears euvolemic. Patient is stable for discharge home from a cardiology standpoint. No further recommendations from a cardiology standpoint at this time. Past Medical History Past Medical History: Eye Disorder, Hyperlipidemia, Hypertension, Mitral Valve Prolapse (MVP), Osteoarthritis (OA), Thyroid Disorder Additional Past Medical History / Comment(s): HX OF ANEMIA, ULCER, GLAUCOMA, HX OF low back pain, HX STATES DIVERTICULOSIS AND HIATAL HERNIA, PT NOT AWARE History of Any Multi-Drug Resistant Organisms: None Reported Past Surgical History: Adenoidectomy, Cardiac Valve Replacement, Cholecystectomy, Joint Replacement, Orthopedic Surgery, Tonsillectomy Additional Past Surgical History / Comment(s): BILAT CATARACT, MITRAL VALVE REPLACED. BILAT KNEE REPLACEMENT. Epidural pain injectionsl x 3. Past Anesthesia/Blood Transfusion Reactions: No Reported Reaction Additional Past Anesthesia/Blood Transfusion Reaction / Comment(s): Pt has recieved blood with no adverse reaction. Past Psychological History: Anxiety, Depression, Panic Disorder Additional Psychological History / Comment(s): PT STATES NO CURRENT ISSUES Smoking Status: Never smoker Past Alcohol Use History: Occasional Additional Past Alcohol Use History / Comment(s): Pt may drink 2-3 drinks a month. Past Drug Use History: None Reported - Past Family History Father Family Medical History: Pneumonia Additional Family Medical History / Comment(s): Father was healthy. He of pneumonia at age 81yrs Mother Family Medical History: Congestive Heart Failure (CHF) Additional Family Medical History / Comment(s): Mother had low blood pressure. She had a cholecystectomy. She at age 85yrs. Medications and Allergies Home Medications Medication Instructions Recorded Confirmed Type Furosemide [Lasix] 20 mg PO DAILY 01/31/14 08/25/20 History Latanoprost Ophth [Xalatan 0.005%] 1 drop BOTH EYES HS 01/31/14 08/25/20 History Levothyroxine Sodium [Synthroid] 75 mcg PO DAILY 04/16/14 08/25/20 History Loperamide [Imodium] 2 - 4 mg PO QID PRN MDD 6 doses 04/16/14 08/25/20 History Ergocalciferol [Vitamin D2 50,000 unit PO TH 04/05/18 08/25/20 History (DRISDOL)] Acetaminophen Tab [Tylenol] 1,000 mg PO Q4-6H PRN 06/15/20 08/25/20 History Bisacodyl 5 mg PO DAILY PRN 06/15/20 08/25/20 History Calcium Polycarbophil [Fiber-Lax] 625 mg PO DAILY 06/15/20 08/25/20 History Cyanocobalamin (Vitamin B-12) 1,000 mcg PO DAILY 06/15/20 08/25/20 History [Vitamin B-12] Divalproex Sodium [Depakote 125 mg PO HS 06/15/20 08/25/20 History Sprinkle] Ferrous Sulfate [Iron (65 MG 325 mg PO DAILY 06/15/20 08/25/20 History Elemental)] Guaifen/Dextromethorphan/PE 20 ml PO Q4H PRN 06/15/20 08/25/20 History [Mucinex Fast-Max Congest-Cough] Ascorbic Acid [Vitamin C] 500 mg PO BID 08/25/20 08/25/20 History Zinc 50 mg PO DAILY 08/25/20 08/25/20 History Acetaminophen Tab [Tylenol] 650 mg PO Q6HR PRN tab 08/28/20 Rx Albuterol Inhaler [Ventolin Hfa 2 puff INHALATION RT-QID PRN puff 08/28/20 Rx Inhaler] Dexamethasone [Decadron] 4 mg PO DAILY 7 Days #7 tablet 08/29/20 Rx LORazepam [Ativan] 0.25 mg PO DAILY #2 tab 08/29/20 Rx Allergies Allergy/AdvReac Type Severity Reaction Status Date / Time amoxicillin [From Augmentin] Allergy Unknown Verified 08/25/20 06:30 clavulanic acid Allergy Unknown Verified 08/25/20 06:30 [From Augmentin] codeine Allergy Rash/Hives Verified 08/25/20 06:30 pravastatin [From Pravachol] Allergy Unknown Verified 08/25/20 06:30 ramipril [From Altace] Allergy Unknown, Verified 08/25/20 06:30 SNEEZING RUNNY NOSE Physical Exam Vitals: Vital Signs Temp Pulse Pulse Resp BP Pulse Ox 08/29/20 14:00 97.9 F 81 18 148/69 98 08/29/20 10:00 97.6 F 79 18 138/74 97 08/29/20 09:04 95 08/29/20 07:20 18 08/29/20 05:48 97.8 F 18 136/78 98 08/29/20 02:00 98.0 F 17 131/76 96 08/28/20 19:50 22 08/28/20 17:37 97.6 F 97 22 160/68 96 Intake and Output 08/29/20 08/29/20 08/29/20 06:59 14:59 22:59 Other: Voiding Method Diaper # Voids 2 Weight 43.5 kg Results 08/27/20 08:05 08/27/20 08:05 Current Medications Generic Name Dose Route Start Last Admin Trade Name Freq PRN Reason Stop Dose Admin Acetaminophen 650 mg 08/25/20 03:16 Acetaminophen Tab 325 Mg Tab PO Q6HR PRN Mild Pain or Fever > 100.5 Acetaminophen 1,000 mg 08/25/20 10:03 Acetaminophen Tab 500 Mg Tab PO Q6H PRN Pain Ascorbic Acid 500 mg 08/25/20 10:30 08/29/20 08:31 Ascorbic Acid 500 Mg Tab PO 500 mg BID TWAN Administration Bisacodyl 5 mg 08/25/20 10:03 Bisacodyl 5 Mg Tablet.Dr PO DAILY PRN Constipation Calcium Polycarbophil 625 mg 08/25/20 10:30 08/29/20 13:32 Calcium Polycarbophil 625 Mg Tab PO 625 mg DAILY TWAN Administration Cyanocobalamin 1,000 mcg 08/26/20 09:00 08/29/20 08:31 Cyanocobalamin 500 Mcg Tab PO 1,000 mcg DAILY TWAN Administration Dexamethasone 4 mg 08/27/20 21:00 08/29/20 13:32 Dexamethasone 4 Mg Tab PO 4 mg BID TWAN Administration Divalproex Sodium 125 mg 08/25/20 21:00 08/28/20 21:26 Divalproex Sprinkle 125 Mg Cap.Sprink PO 125 mg HS TWAN Administration Enoxaparin Sodium 30 mg 08/29/20 09:00 08/29/20 08:31 Enoxaparin 30 Mg/0.3 Ml Syringe SQ 30 mg DAILY TWAN Administration Ergocalciferol 50,000 unit 08/29/20 09:00 08/29/20 13:32 Ergocalciferol 50,000 Unit Cap PO 50,000 unit TH TWAN Administration Famotidine 20 mg 08/26/20 09:00 08/29/20 08:31 Famotidine 20 Mg Tab PO 20 mg DAILY TWAN Administration Ferrous Sulfate 325 mg 08/26/20 09:00 08/29/20 08:31 Ferrous Sulfate 325 Mg Tab PO 325 mg DAILY TWAN Administration Furosemide 20 mg 08/25/20 10:30 08/29/20 08:31 Furosemide 20 Mg Tab PO 20 mg DAILY TWAN Administration Guaifenesin/Dextromethorphan 10 ml 08/25/20 10:28 Guaifenesin-Dm 100-10mg/5ml 10 Ml Cup PO Q4H PRN Cough Latanoprost 1 drops 08/25/20 21:00 08/28/20 21:26 Latanoprost 0.005% Ophth Drops 2.5 Ml Btl BOTH EYES 1 drops HS TWAN Administration Levothyroxine Sodium 75 mcg 08/25/20 10:30 08/29/20 05:33 Levothyroxine 75 Mcg Tab PO 75 mcg DAILY@0630 TWAN Administration Loperamide HCl 2 - 4 mg 08/25/20 10:03 Loperamide 2 Mg Cap PO QID PRN Diarrhea Lorazepam 0.5 mg 08/25/20 10:03 08/25/20 12:06 Lorazepam 0.5 Mg Tab PO 0.5 mg DAILY PRN Administration Anxiety Lorazepam 0.5 mg 08/26/20 09:00 08/29/20 08:31 Lorazepam 0.5 Mg Tab PO 0.5 mg DAILY TWAN Administration Miscellaneous Information 1 each 08/25/20 13:59 Potassium Replacement Protocol 1 Each Misc MISCELLANE DAILY PRN Per Protocol Protocol Naloxone HCl 0.2 mg 08/25/20 03:16 Naloxone 0.4 Mg/Ml 1 Ml Vial IV Q2M PRN Opioid Reversal Zinc Sulfate 220 mg 08/26/20 09:00 08/29/20 08:33 Zinc Sulfate 220 Mg Cap PO 220 mg DAILY TWAN Administration Intake and Output 08/29/20 08/29/20 08/29/20 06:59 14:59 22:59 Other: Voiding Method Diaper # Voids 2 Weight 43.5 kg 08/27/20 08:05 08/27/20 08:05
== END 2020-08-29 18:51 | DRG 177 ==
LOC: EC 00:56 → 3SCARD 03:18 → OBSVTOIN 03:19 → 4SSUR 08-26 22:27
PROVIDERS: ADMIT Internal Medicine; ATTEND Internal Medicine
DX: U07.1 COVID-19 (principal); J12.89 Other viral pneumonia; G30.9 Alzheimer's disease, unspecified; F41.0 Panic disorder [episodic paroxysmal anxiety]; F32.9 Major depressive disorder, single episode, unspecified; I10 Essential (primary) hypertension; M06.9 Rheumatoid arthritis, unspecified; E78.5 Hyperlipidemia, unspecified; E03.9 Hypothyroidism, unspecified; F02.80 Dementia in other diseases classified elsewhere, unspecified severity, without behavioral disturbance, psychotic disturbance, mood disturbance, and anxiety; D50.9 Iron deficiency anemia, unspecified; E87.6 Hypokalemia; I34.1 Nonrheumatic mitral (valve) prolapse; Z66 Do not resuscitate; M19.90 Unspecified osteoarthritis, unspecified site; Z96.653 Presence of artificial knee joint, bilateral; Z79.899 Other long term (current) drug therapy; Z79.890 Hormone replacement therapy; Z79.01 Long term (current) use of anticoagulants; Z82.49 Family history of ischemic heart disease and other diseases of the circulatory system; Z88.1 Allergy status to other antibiotic agents; Z88.5 Allergy status to narcotic agent; Z88.0 Allergy status to penicillin; Z88.8 Allergy status to other drugs, medicaments and biological substances; Z95.3 Presence of xenogenic heart valve; Z90.89 Acquired absence of other organs; Z90.49 Acquired absence of other specified parts of digestive tract; Z98.42 Cataract extraction status, left eye; Z98.41 Cataract extraction status, right eye; Z98.890 Other specified postprocedural states; Z83.6 Family history of other diseases of the respiratory system
CPT/HCPCS: 36415; 71045; 78580; 80053; 83605; 83880; 84484; 85025; 85379; 85610; 85730; 87040; 87635; 93005; 94640; 94760; 96372; 99285

== ENCOUNTER 2020-09-10 12:42 | Inpatient (IN) | payer MEDICARE ==
[2020-09-10 12:54] LABS: Glucose,Whole Blood 103 mg/dL (75-99)
--- NOTE | 2020-09-10 13:00 | ED ---
Neuro HPI - General Chief Complaint: Neuro Symptoms/Deficit Stated Complaint: Poss Stroke Time Seen by Provider: 09/10/20 12:42 Source: EMS, RN notes reviewed Mode of arrival: EMS Limitations: altered mental status, physical limitation - History of Present Illness Is the patient presenting with stroke symptoms?: No Initial Comments: This is a 89-year-old female who presents from a [facility] with complaints of a possible stroke. She apparently was found after being seen in her normal state at 11 AM this morning at 1120 she is found to be slumped over in her wheelchair to left side and minimally responsive or unresponsive. She apparently has some history of left facial droop there was reported possibly left arm weakness. She was seen by paramedics who brought her in for evaluation her glucose is 157 she seemed to be slow to respond but did seen respond appropriately she was noted to be moving her left arm and no facial droop noted by the time she arrived here. - Related Data Home Medications: Home Medications Medication Instructions Recorded Confirmed Furosemide [Lasix] 20 mg PO DAILY 01/31/14 09/10/20 Latanoprost Ophth [Xalatan 0.005%] 1 drop BOTH EYES HS 01/31/14 09/10/20 Loperamide [Imodium] 2 - 4 mg PO QID PRN MDD 6 doses 04/16/14 09/10/20 Ergocalciferol [Vitamin D2 50,000 unit PO TH@0600 04/05/18 09/10/20 (DRISDOL)] Acetaminophen Tab [Tylenol] 1,000 mg PO Q4-6H PRN 06/15/20 09/10/20 Bisacodyl 5 mg PO DAILY PRN 06/15/20 09/10/20 Calcium Polycarbophil [Fiber-Lax] 625 mg PO DAILY 06/15/20 09/10/20 Cyanocobalamin (Vitamin B-12) 1,000 mcg PO DAILY 06/15/20 09/10/20 [Vitamin B-12] Divalproex Sodium [Depakote 125 mg PO HS@199906/15/20 09/10/20 Sprinkle] Ferrous Sulfate [Iron (65 MG 325 mg PO DAILY 06/15/20 09/10/20 Elemental)] Guaifen/Dextromethorphan/PE 20 ml PO Q4H PRN 06/15/20 09/10/20 [Mucinex Fast-Max Congest-Cough] Ascorbic Acid [Vitamin C] 500 mg PO BID 08/25/20 09/10/20 Zinc 50 mg PO DAILY 08/25/20 09/10/20 Levothyroxine Sodium [Synthroid] 50 mcg PO DAILY@0700 09/10/20 09/10/20 Previous Rx's Medication Instructions Recorded Acetaminophen Tab [Tylenol] 650 mg PO Q6HR PRN tab 08/28/20 Albuterol Inhaler [Ventolin Hfa 2 puff INHALATION RT-QID PRN puff 08/28/20 Inhaler] LORazepam [Ativan] 0.25 mg PO DAILY #2 tab 08/29/20 Allergies/Adverse Reactions: Allergies Allergy/AdvReac Type Severity Reaction Status Date / Time amoxicillin [From Augmentin] Allergy Unknown Verified 09/10/20 13:15 clavulanic acid Allergy Unknown Verified 09/10/20 13:15 [From Augmentin] codeine Allergy Rash/Hives Verified 09/10/20 13:15 pravastatin [From Pravachol] Allergy Unknown Verified 09/10/20 13:15 ramipril [From Altace] Allergy Unknown, Verified 09/10/20 13:15 SNEEZING RUNNY NOSE Review of Systems ROS Statement: Those systems with pertinent positive or pertinent negative responses have been documented in the HPI. ROS Other: All systems not noted in ROS Statement are negative. General Exam - General Exam Comments Initial Comments: This is a well-developed asthenic appearing female who is awake and alert still responded she does appear to be oriented to person place Limitations: altered mental status, physical limitation General appearance: alert, in no apparent distress Head exam: Present: atraumatic, normocephalic, normal inspection Eye exam: Present: normal appearance, PERRL, EOMI. Absent: scleral icterus, conjunctival injection, periorbital swelling ENT exam: Present: mucous membranes dry Neck exam: Present: normal inspection. Absent: tenderness, meningismus, lymphadenopathy Respiratory exam: Present: normal lung sounds bilaterally. Absent: respiratory distress, wheezes, rales, rhonchi, stridor Cardiovascular Exam: Present: regular rate, normal rhythm, normal heart sounds. Absent: systolic murmur, diastolic murmur, rubs, gallop, clicks GI/Abdominal exam: Present: soft, normal bowel sounds. Absent: distended, tenderness, guarding, rebound, rigid Extremities exam: Present: normal inspection, full ROM, normal capillary refill. Absent: tenderness, pedal edema, joint swelling, calf tenderness Back exam: Present: normal inspection Neurological exam: Present: alert, oriented X3, CN II-XII intact Psychiatric exam: Present: normal affect, normal mood Skin exam: Present: warm, dry, intact, normal color. Absent: rash Stroke MDM - Lab Data Result diagrams: 09/10/20 13:14 09/10/20 12:03 Lab Results 09/10/20 09/10/20 09/10/20 Range/Units 12:03 12:03 12:48 WBC (3.8-10.6) k/uL RBC (3.80-5.40) m/uL Hgb (11.4-16.0) gm/dL Hct (34.0-46.0) % MCV (80.0-100.0) fL MCH (25.0-35.0) pg MCHC (31.0-37.0) g/dL RDW (11.5-15.5) % Plt Count (150-450) k/uL MPV Neutrophils % % Lymphocytes % % Monocytes % % Eosinophils % % Basophils % % Neutrophils # (1.3-7.7) k/uL Lymphocytes # (1.0-4.8) k/uL Monocytes # (0-1.0) k/uL Eosinophils # (0-0.7) k/uL Basophils # (0-0.2) k/uL PT (9.0-12.0) sec INR (<1.2) APTT (22.0-30.0) sec Sodium 131 L (137-145) mmol/L Potassium 5.2 H (3.5-5.1) mmol/L Chloride 103 (98-107) mmol/L Carbon Dioxide 21 L (22-30) mmol/L Anion Gap 7 mmol/L BUN 31 H (7-17) mg/dL Creatinine 0.93 (0.52-1.04) mg/dL Est GFR (CKD-EPI)AfAm 64 (>60 ml/min/1.73 sqM) Est GFR (CKD-EPI)NonAf 56 (>60 ml/min/1.73 sqM) Glucose 100 H (74-99) mg/dL POC Glucose (mg/dL) 103 H (75-99) mg/dL POC Glu Dental Technician Instructor ID Judi Brown Calcium 8.4 (8.4-10.2) mg/dL Total Bilirubin 1.0 (0.2-1.3) mg/dL AST 37 H (14-36) U/L ALT 21 (4-34) U/L Alkaline Phosphatase 86 (38-126) U/L Creatine Kinase 29 L (30-135) U/L Troponin I 0.143 H* (0.000-0.034) ng/mL Total Protein 6.6 (6.3-8.2) g/dL Albumin 3.1 L (3.5-5.0) g/dL 09/10/20 09/10/20 Range/Units 13:14 13:14 WBC 17.9 H (3.8-10.6) k/uL RBC 4.09 (3.80-5.40) m/uL Hgb 10.3 L (11.4-16.0) gm/dL Hct 33.5 L (34.0-46.0) % MCV 82.0 (80.0-100.0) fL MCH 25.2 (25.0-35.0) pg MCHC 30.7 L (31.0-37.0) g/dL RDW 13.8 (11.5-15.5) % Plt Count 275 (150-450) k/uL MPV 7.0 Neutrophils % 92 % Lymphocytes % 3 % Monocytes % 3 % Eosinophils % 1 % Basophils % 0 % Neutrophils # 16.4 H (1.3-7.7) k/uL Lymphocytes # 0.6 L (1.0-4.8) k/uL Monocytes # 0.5 (0-1.0) k/uL Eosinophils # 0.1 (0-0.7) k/uL Basophils # 0.1 (0-0.2) k/uL PT 10.3 (9.0-12.0) sec INR 1.0 (<1.2) APTT 19.8 L (22.0-30.0) sec Sodium (137-145) mmol/L Potassium (3.5-5.1) mmol/L Chloride (98-107) mmol/L Carbon Dioxide (22-30) mmol/L Anion Gap mmol/L BUN (7-17) mg/dL Creatinine (0.52-1.04) mg/dL Est GFR (CKD-EPI)AfAm (>60 ml/min/1.73 sqM) Est GFR (CKD-EPI)NonAf (>60 ml/min/1.73 sqM) Glucose (74-99) mg/dL POC Glucose (mg/dL) (75-99) mg/dL POC Glu Dental Technician Instructor ID Calcium (8.4-10.2) mg/dL Total Bilirubin (0.2-1.3) mg/dL AST (14-36) U/L ALT (4-34) U/L Alkaline Phosphatase (38-126) U/L Creatine Kinase (30-135) U/L Troponin I (0.000-0.034) ng/mL Total Protein (6.3-8.2) g/dL Albumin (3.5-5.0) g/dL - NIH Stroke Scale 1a. Level of Consciousness: (0) alert 1b. LOC Questions: (0) answers correctly 1c. LOC Commands: (0) performs tasks correctly 2. Best Gaze: (0) normal 3. Visual: (0) no visual loss 4. Facial Palsy: (0) normal symmetrical movement 5a. Motor Arm Left: (0) no drift 5b. Motor Arm Right: (0) no drift 6a. Motor Leg Left: (0) no drift 6b. Motor Leg Right: (0) no drift 7. Limb Ataxia: (0) absent 8. Sensory: (0) normal 9. Best Language: (0) no aphasia 10. Dysarthria: (0) normal 11. Extinction/Inattention: (0) no abnormality - Medical Decision Making Patient was evaluated by Dr. So in the emergency department patient does have evidence pneumonia patient will be admitted - Radiology Data Radiology results: report reviewed (G shows evidence of infiltrates. He stated complete report CT shows no evidence of acute findings chronic findings are seen), image reviewed - EKG Data -: EKG Interpreted by Me EKG shows normal: sinus rhythm (Sinus rhythm was 57288 QRS 80 QT since QTC 360/467 LVH artifact present) Past Medical History Past Medical History: Eye Disorder, Hyperlipidemia, Hypertension, Mitral Valve Prolapse (MVP), Osteoarthritis (OA), Thyroid Disorder Additional Past Medical History / Comment(s): HX OF ANEMIA, ULCER, GLAUCOMA, HX OF low back pain, HX STATES DIVERTICULOSIS AND HIATAL HERNIA, PT NOT AWARE History of Any Multi-Drug Resistant Organisms: None Reported Past Surgical History: Adenoidectomy, Cardiac Valve Replacement, Cholecystectomy, Joint Replacement, Orthopedic Surgery, Tonsillectomy Additional Past Surgical History / Comment(s): BILAT CATARACT, MITRAL VALVE REPLACED. BILAT KNEE REPLACEMENT. Epidural pain injectionsl x 3. Past Anesthesia/Blood Transfusion Reactions: No Reported Reaction Additional Past Anesthesia/Blood Transfusion Reaction / Comment(s): Pt has recieved blood with no adverse reaction. Past Psychological History: Anxiety, Depression, Panic Disorder Smoking Status: Never smoker Past Alcohol Use History: Occasional Past Drug Use History: None Reported - Past Family History Father Family Medical History: Pneumonia Additional Family Medical History / Comment(s): Father was healthy. He of pneumonia at age 81yrs Mother Family Medical History: Congestive Heart Failure (CHF) Additional Family Medical History / Comment(s): Mother had low blood pressure. She had a cholecystectomy. She at age 85yrs. Course Vital Signs 09/10/20 09/10/20 09/10/20 12:43 12:58 13:13 Temperature 98.9 F Pulse Rate 100 90 97 Respiratory 18 20 20 Rate Blood Pressure 109/48 121/56 126/71 O2 Sat by Pulse 90 L 94 L 95 Oximetry 09/10/20 09/10/20 14:00 15:00 Temperature Pulse Rate 90 90 Respiratory 18 18 Rate Blood Pressure 114/79 102/62 O2 Sat by Pulse 96 98 Oximetry - Reevaluation(s) Reevaluation #1: 09/10/20 15:30 Reevaluation patient reveals no apparent neuro deficits. I did discuss the case with Dr. Pfeiffer did call back with a code stroke was called. Also with Dr. So who did come the emergency department see the patient. Critical Care Time Critical Care Time: Yes Total Critical Care Time: 39 Critical Care Time: Critical care time includes initial presentation with history physical labs x- rays multiple reevaluation the patient to responsive therapy fluids antibiotics. Discussion with several physicians regarding the patient's presentation and findings. Admission orders documentation above review of old charting was available. Disposition Clinical Impression: Transient cerebral ischemia, Pneumonia, NSTEMI (non-ST elevated myocardial infarction), Dehydration Disposition: ADMITTED IP TO THIS HOSP Condition: Fair Referrals: Dieter Schultz MD [Primary Care Provider] - 1-2 days
[2020-09-10] MEDS ORDERED: ACETAMINOPHEN TAB 500 MG TAB PO PRN (13:25)
[2020-09-10] MEDS ORDERED: ALBUTEROL HFA INHALER INHALATION PRN (13:25)
[2020-09-10] MEDS ORDERED: ACETAMINOPHEN TAB 325 MG TAB PO PRN (13:25)
[2020-09-10] MEDS ORDERED: LOPERAMIDE 2 MG CAP PO PRN (13:25)
[2020-09-10] MEDS ORDERED: bisacodyL 5 MG TABLET.DR PO PRN (13:25)
--- NOTE | 2020-09-10 13:25 | CT ---
EXAMINATION TYPE: CT brain wo con for TPA DATE OF EXAM: 09/10/2020 COMPARISON: 03/01/2012 HISTORY: 89-year-old female neurologic deficit, acute, stroke suspected TECHNIQUE: Examination was done in axial plane without intravenous contrast. Coronal and sagittal r econstructions performed. CT DLP: 1102.8 mGycm Automated exposure control for dose reduction was used. FINDINGS: There is no evidence of acute intracranial hemorrhage, acute ischemic changes, mass, mass-effect, or extra-axial fluid collection. There is no effacement of cerebral sulci or basal subarachnoid cister ns. There is no midline shift. [place]-white matter distinction is preserved. Partially empty sella incidentally noted. Progressive moderate to severe generalized atrophy. Mild ve ntriculomegaly also progressed from 2012. Confluent periventricular white matter hypodensities progre ssed from 2011. Paranasal sinuses and mastoid air cells well pneumatized. Orbits and globes are intact. IMPRESSION: Moderate to severe generalized atrophy and confluent periventricular burden of chronic small vessel i schemic disease, both progressed from 2012. Mild ventriculomegaly also progressed probably due to max tral cerebral atrophy. No acute intracranial abnormality seen.
[2020-09-10 13:31] LABS: Albumin 3.1 g/dL (3.5-5.0); Calcium 8.4 mg/dL (8.4-10.2); Total Protein 6.6 g/dL (6.3-8.2)
--- NOTE | 2020-09-10 13:34 | CT ---
EXAMINATION TYPE: CT angio head neck DATE OF EXAM: 09/10/2020 COMPARISON: Correlation CT chest 06/15/2020 HISTORY: 89-year-old female neurologic deficit, acute, stroke suspected. TECHNIQUE: Contiguous axial scanning of the head and neck performed with IV Contrast, patient injecte d with 65 mL of Isovue 370. Coronal/sagittal MIP reconstructions performed. 3-D reconstructions gener ated on a dedicated workstation. CT DLP: 341.8 mGycm Automated exposure control for dose reduction was used. FINDINGS: NECK: Multifocal peribronchovascular consolidation is demonstrated bilaterally. Moderate atherosclerotic arch calcifications. Conventional radiographic vessel branching anatomy. Vertebral artery origins are patent. The vessels are patent throughout the course. Tortuous right brachiocephalic artery. Right common carotid artery is patent. Minimal eccentric prostatic calcification at the right carotid bulb. Right ICA is otherwise patent. Tortuous proximal and mid left common carotid artery. Mild atherosclerotic change at the left carotid bifurcation with mild, less than 20% narrowing within the proximal left ICA. HEAD: Early takeoff of the left PICA just prior to the V4 segment. Otherwise, vertebral and basilar arterie s are patent. Scattered mild atherosclerotic change within the carotid siphons. There is focal mild atherosclerotic narrowing of approximately 30-40% of the supraclinoid left ICA, a xial image 158 series 408. Otherwise, both internal carotid arteries are patent as is the remainder of the anterior and posterio r circulation. No aneurysmal change is identified. IMPRESSION: NECK: 1. MULTIFOCAL PERIBRONCHOVASCULAR AIRSPACE DISEASE IN THE VISUALIZED UPPER LUNGS. CORRELATE FOR POTEN TIAL COVID PNEUMONIA. 2. NO HEMODYNAMICALLY SIGNIFICANT STENOSIS WITHIN THE CAROTID OR VERTEBRAL ARTERIES OF THE NECK. HEAD: 3. 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 NO LARGE VESSEL INTRACRANIAL ARTERIAL OCCLUSION, SIGNIFICANT STENOSIS, OR ANEURYSMAL CHANGE IS SEEN.
[2020-09-10 13:35] LABS: Potassium 5.2 mmol/L (3.5-5.1)
[2020-09-10 13:39] LABS: Basophils # (A) 0.1 k/uL (0-0.2); Basophils % (A) 0 %; Eosinophils # (A) 0.1 k/uL (0-0.7); Eosinophils % (A) 1 %; HCT 33.5 % (34.0-46.0); HGB 10.3 gm/dL (11.4-16.0); Lymphocytes # (A) 0.6 k/uL (1.0-4.8); Lymphocytes % (A) 3 %; MCH 25.2 pg (25.0-35.0); MCHC 30.7 g/dL (31.0-37.0); Monocytes # (A) 0.5 k/uL (0-1.0); Monocytes % (A) 3 %; Neutrophils # (A) 16.4 k/uL (1.3-7.7); Neutrophils % (A) 92 %; Platelet Count 275 k/uL (150-450); RBC 4.09 m/uL (3.80-5.40); RDW 13.8 % (11.5-15.5); WBC 17.9 k/uL (3.8-10.6)
[2020-09-10] MEDS ORDERED: SODIUM CHLORIDE 0.9% 1,000 ML IV STA (13:40)
--- NOTE | 2020-09-10 13:54 | P.HPIM ---
History of Present Illness 89-year-old female [facility] resident was recently discharged after she was treated for Covid, came in after she was found to be slumped over with possible weakness and facial droop on the right side. Patient has significant gene ralized weakness patient baseline mental status alert oriented 2 able to provide me answers. Because of her baseline generalized weakness unable to assess is a focal weakness very well there may be a mild facial droop strength in both upper arms appear to be around 3-4/5 and lower limb it appeared to be 4/5. Patient blood sugar is within normal limits blood pressure is within normal limits. Patient is admitted for workup for stroke. Patient had a recent echocardiogram which did not show any significant abnormality because of which I'm not repeating this CT of the head showed some chronic microvascular ischemic changes, LDL will be obtained pending CT angios. Neurology will be consulted and decision regarding MRI and further workup as per neurology. Review of Systems Patient is a poor historian all other review of systems are either negative or limited because of her baseline dementia. Past Medical History Past Medical History: Eye Disorder, Hyperlipidemia, Hypertension, Mitral Valve Prolapse (MVP), Osteoarthritis (OA), Thyroid Disorder Additional Past Medical History / Comment(s): HX OF ANEMIA, ULCER, GLAUCOMA, HX OF low back pain, HX STATES DIVERTICULOSIS AND HIATAL HERNIA, PT NOT AWARE History of Any Multi-Drug Resistant Organisms: None Reported Past Surgical History: Adenoidectomy, Cardiac Valve Replacement, Cholecystectomy, Joint Replacement, Orthopedic Surgery, Tonsillectomy Additional Past Surgical History / Comment(s): BILAT CATARACT, MITRAL VALVE REPLACED. BILAT KNEE REPLACEMENT. Epidural pain injectionsl x 3. Past Anesthesia/Blood Transfusion Reactions: No Reported Reaction Additional Past Anesthesia/Blood Transfusion Reaction / Comment(s): Pt has recieved blood with no adverse reaction. Past Psychological History: Anxiety, Depression, Panic Disorder Smoking Status: Never smoker Past Alcohol Use History: Occasional Past Drug Use History: None Reported - Past Family History Father Family Medical History: Pneumonia Additional Family Medical History / Comment(s): Father was healthy. He of pneumonia at age 81yrs Mother Family Medical History: Congestive Heart Failure (CHF) Additional Family Medical History / Comment(s): Mother had low blood pressure. She had a cholecystectomy. She at age 85yrs. Medications and Allergies Home Medications Medication Instructions Recorded Confirmed Type Furosemide [Lasix] 20 mg PO DAILY 01/31/14 09/10/20 History Latanoprost Ophth [Xalatan 0.005%] 1 drop BOTH EYES HS 01/31/14 09/10/20 History Loperamide [Imodium] 2 - 4 mg PO QID PRN MDD 6 doses 04/16/14 09/10/20 History Ergocalciferol [Vitamin D2 50,000 unit PO TH@0604/05/18 09/10/20 History (DRISDOL)] Acetaminophen Tab [Tylenol] 1,000 mg PO Q4-6H PRN 06/15/20 09/10/20 History Bisacodyl 5 mg PO DAILY PRN 06/15/20 09/10/20 History Calcium Polycarbophil [Fiber-Lax] 625 mg PO DAILY 06/15/20 09/10/20 History Cyanocobalamin (Vitamin B-12) 1,000 mcg PO DAILY 06/15/20 09/10/20 History [Vitamin B-12] Divalproex Sodium [Depakote 125 mg PO HS@199906/15/20 09/10/20 History Sprinkle] Ferrous Sulfate [Iron (65 MG 325 mg PO DAILY 06/15/20 09/10/20 History Elemental)] Guaifen/Dextromethorphan/PE 20 ml PO Q4H PRN 06/15/20 09/10/20 History [Mucinex Fast-Max Congest-Cough] Ascorbic Acid [Vitamin C] 500 mg PO BID 08/25/20 09/10/20 History Zinc 50 mg PO DAILY 08/25/20 09/10/20 History Acetaminophen Tab [Tylenol] 650 mg PO Q6HR PRN tab 08/28/20 09/10/20 Rx Albuterol Inhaler [Ventolin Hfa 2 puff INHALATION RT-QID PRN puff 08/28/20 09/10/20 Rx Inhaler] LORazepam [Ativan] 0.25 mg PO DAILY #2 tab 08/29/20 09/10/20 Rx Levothyroxine Sodium [Synthroid] 50 mcg PO DAILY@0700 09/10/20 09/10/20 History Allergies Allergy/AdvReac Type Severity Reaction Status Date / Time amoxicillin [From Augmentin] Allergy Unknown Verified 09/10/20 13:15 clavulanic acid Allergy Unknown Verified 09/10/20 13:15 [From Augmentin] codeine Allergy Rash/Hives Verified 09/10/20 13:15 pravastatin [From Pravachol] Allergy Unknown Verified 09/10/20 13:15 ramipril [From Altace] Allergy Unknown, Verified 09/10/20 13:15 SNEEZING RUNNY NOSE Physical Exam Vitals: Vital Signs Temp Pulse Resp BP Pulse Ox 09/10/20 13:13 97 20 126/71 95 09/10/20 12:58 90 20 121/56 94 L 09/10/20 12:43 98.9 F 100 18 109/48 90 L Intake and Output 09/09/20 09/10/20 09/10/20 22:59 06:59 14:59 Other: Weight 65.045 kg PHYSICAL EXAMINATION: GENERAL: The patient is alert and oriented x2 which is her baseline, not in any acute distress. Significant generalized weakness, fragile elderly female HEENT: Pupils are round and equally reacting to light. EOMI. No scleral icterus. No conjunctival pallor. Normocephalic, atraumatic. No pharyngeal erythema. No thyromegaly. CARDIOVASCULAR: S1 and S2 present. No murmurs, rubs, or gallops. PULMONARY: Chest is clear to auscultation, no wheezing or crackles. ABDOMEN: Soft, nontender, nondistended, normoactive bowel sounds. No palpable organomegaly. MUSCULOSKELETAL: No joint swelling or deformity. EXTREMITIES: No cyanosis, clubbing, or pedal edema. NEUROLOGICAL: As mentioned in HPI itself SKIN: No rashes. Results CBC & Chem 7: 09/10/20 13:14 09/10/20 12:03 Labs: Abnormal Lab Results - Last 24 Hours (Table) 09/10/20 09/10/20 09/10/20 Range/Units 12:03 12:48 13:14 WBC 17.9 H (3.8-10.6) k/uL Hgb 10.3 L (11.4-16.0) gm/dL Hct 33.5 L (34.0-46.0) % MCHC 30.7 L (31.0-37.0) g/dL Neutrophils # 16.4 H (1.3-7.7) k/uL Lymphocytes # 0.6 L (1.0-4.8) k/uL Sodium 131 L (137-145) mmol/L Potassium 5.2 H (3.5-5.1) mmol/L Carbon Dioxide 21 L (22-30) mmol/L BUN 31 H (7-17) mg/dL Glucose 100 H (74-99) mg/dL POC Glucose (mg/dL) 103 H (75-99) mg/dL AST 37 H (14-36) U/L Creatine Kinase 29 L (30-135) U/L Albumin 3.1 L (3.5-5.0) g/dL Assessment and Plan Plan: -Episode of unresponsiveness and possible weakness on the left side: Patient will be admitted for workup for TIA. Workup as mentioned and we'll history neurology will be consulted. Patient will be continued on statin and an aspirin. -Hyponatremia hypovolemic hyponatremia secondary to diuretics which will be held patient will be started on gentle hydration -Hyperkalemia secondary to hemolysis Mild acute renal failure secondary to Lasix IV fluids and gentle hydration as mentioned above -Leukocytosis secondary to systemic steroids she was receiving for Covid and she completed this therapy patient will not be continued on any steroids. -Recent Covid 19 infection. Completed Decadron therapy -Hypertension -hyperlipidemia - hypothyroidism DVT prophylaxis with subcutaneous heparin
[2020-09-10 14:07] LABS: Prothrombin Time 10.3 sec (9.0-12.0)
[2020-09-10 14:10] LABS: Partial Thromboplastin Time 19.8 sec (22.0-30.0)
--- NOTE | 2020-09-10 14:33 | XR ---
EXAMINATION TYPE: XR chest 1V portable DATE OF EXAM: 09/10/2020 Comparison: 08/25/2020 Clinical History: 89-year-old female TIA Findings: Median sternotomy wires with postoperative changes. Heart normal size. Multifocal consolidation, righ t and left. No sizable effusion. Impression: Multifocal consolidation, right greater than left. Correlate for multifocal pneumonia including the p ossibility of COVID pneumonia.
[2020-09-10] MEDS: SODIUM CHLORIDE 0.9% 1,000 ML IV SCH (15:08)
[2020-09-10] MEDS ORDERED: cefTRIAXone IN SWFI 1,000 MG/10 ML SYRINGE IVP STA (15:17)
--- NOTE | 2020-09-10 16:42 | P.CNNES ---
History of Present Illness Consult date: 09/10/20 Requesting physician: Vitaliy So Reason for Consult: concern for TIA for left facial droop and left arm weakness History of Present Illness: This is an 89-year-old woman with history of recent COVID and was discharge close to end of last month, hyperlipidemia, hypertension, bilateral cataract, lower back pain, mitral valve replacement, hypothyroidism that presented to the emergency department on 09/10/2020 from detention because she was slumped over with left facial droop and left arm weakness. She was seen in the last normal around 11 AM today but at around 11:20 AM today she was a noticed that she was a slumped over in her wheelchair with left facial droop and left arm weakness. She was minimally responsive to no response. Per the paramedics. Glucose was 157. Upon arrival she had no further facial droop or weakness of the arm. Upon reviewing medical record the it is noted that the patient the has generalized weakness. She also has history of Alzheimer's dementia and the she is alert oriented times see as her baseline. Workup in the hospital consisted of: Initial vital signs: Blood pressure of 109/48, heart rate of 100, respiratory of 18, temperature of 98.9 Fahrenheit oral and pulse ox of 90% at room air. CT of the head is reported as moderate to severe generalized atrophy and c onfluent the periventricular burden of chronic small vessel ischemic disease, both progress from 2011. Mild ventriculomegaly also will progress probably due to the central cerebral atrophy. No acute intracranial abnormality seen. CT angiography of the head is reported as mild focal atherosclerotic stenosis supraclinoid left ICA of approximately 30-40%. No large vessel to cranial arterial occlusion, significant stenosis or aneurysm changes seen. 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 Correlate for potential covert pneumonia. No hemodynamically significant stenosis within the carotid or vertebral arteries of the neck. CXR reported as multifocal consolidation, right greater than left at. Correlate for multifocal pneumonia including the possibility of covid-19 pneumonia. White Blood cell is a 17.9 and it's predominantly neutrophilic. Hemoglobin is 10.3. Sodium is 131. Baseline sodium is 138-141. Potassium is 5.2 and is mild hemodylysis. BUN is 31. Serum glucose presentation initially is 100. AST of 37 ALT of 21. CK of 29. Troponin is 0.143. Her NIH stroke scale was a 0. No IV TPA since the patient was back to baseline. Review of Systems Review of system and the per positive and negative as per HPI that rest I could not assess because of the patient cooperation. Past Medical History Past Medical History: Eye Disorder, Hyperlipidemia, Hypertension, Mitral Valve Prolapse (MVP), Osteoarthritis (OA), Thyroid Disorder Additional Past Medical History / Comment(s): HX OF ANEMIA, ULCER, GLAUCOMA, HX OF low back pain, HX STATES DIVERTICULOSIS AND HIATAL HERNIA, PT NOT AWARE History of Any Multi-Drug Resistant Organisms: None Reported Past Surgical History: Adenoidectomy, Cardiac Valve Replacement, Cholecystectomy, Joint Replacement, Orthopedic Surgery, Tonsillectomy Additional Past Surgical History / Comment(s): BILAT CATARACT, MITRAL VALVE REPLACED. BILAT KNEE REPLACEMENT. Epidural pain injectionsl x 3. Past Anesthesia/Blood Transfusion Reactions: No Reported Reaction Additional Past Anesthesia/Blood Transfusion Reaction / Comment(s): Pt has recieved blood with no adverse reaction. Past Psychological History: Anxiety, Depression, Panic Disorder Smoking Status: Never smoker Past Alcohol Use History: Occasional Past Drug Use History: None Reported - Past Family History Father Family Medical History: Pneumonia Additional Family Medical History / Comment(s): Father was healthy. He of pneumonia at age 81yrs Mother Family Medical History: Congestive Heart Failure (CHF) Additional Family Medical History / Comment(s): Mother had low blood pressure. She had a cholecystectomy. She at age 85yrs. Medications and Allergies Home Medications Medication Instructions Recorded Confirmed Type Furosemide [Lasix] 20 mg PO DAILY 01/31/14 09/10/20 History Latanoprost Ophth [Xalatan 0.005%] 1 drop BOTH EYES HS 01/31/14 09/10/20 History Loperamide [Imodium] 2 - 4 mg PO QID PRN MDD 6 doses 04/16/14 09/10/20 History Ergocalciferol [Vitamin D2 50,000 unit PO TH@0600 04/05/18 09/10/20 History (DRISDOL)] Acetaminophen Tab [Tylenol] 1,000 mg PO Q4-6H PRN 06/15/20 09/10/20 History Bisacodyl 5 mg PO DAILY PRN 06/15/20 09/10/20 History Calcium Polycarbophil [Fiber-Lax] 625 mg PO DAILY 06/15/20 09/10/20 History Cyanocobalamin (Vitamin B-12) 1,000 mcg PO DAILY 06/15/20 09/10/20 History [Vitamin B-12] Divalproex Sodium [Depakote 125 mg PO HS@2000 06/15/20 09/10/20 History Sprinkle] Ferrous Sulfate [Iron (65 MG 325 mg PO DAILY 06/15/20 09/10/20 History Elemental)] Guaifen/Dextromethorphan/PE 20 ml PO Q4H PRN 06/15/20 09/10/20 History [Mucinex Fast-Max Congest-Cough] Ascorbic Acid [Vitamin C] 500 mg PO BID 08/25/20 09/10/20 History Zinc 50 mg PO DAILY 08/25/20 09/10/20 History Acetaminophen Tab [Tylenol] 650 mg PO Q6HR PRN tab 08/28/20 09/10/20 Rx Albuterol Inhaler [Ventolin Hfa 2 puff INHALATION RT-QID PRN puff 08/28/20 09/10/20 Rx Inhaler] LORazepam [Ativan] 0.25 mg PO DAILY #2 tab 08/29/20 09/10/20 Rx Levothyroxine Sodium [Synthroid] 50 mcg PO DAILY@0700 09/10/20 09/10/20 History Allergies Allergy/AdvReac Type Severity Reaction Status Date / Time amoxicillin [From Augmentin] Allergy Unknown Verified 09/10/20 13:15 clavulanic acid Allergy Unknown Verified 09/10/20 13:15 [From Augmentin] codeine Allergy Rash/Hives Verified 09/10/20 13:15 pravastatin [From Pravachol] Allergy Unknown Verified 09/10/20 13:15 ramipril [From Altace] Allergy Unknown, Verified 09/10/20 13:15 SNEEZING RUNNY NOSE Physical Examination - Vital Signs Vital Signs: Vital Signs Temp Pulse Resp BP Pulse Ox 09/10/20 15:00 90 18 102/62 98 09/10/20 14:00 90 18 114/79 96 09/10/20 13:13 97 20 126/71 95 09/10/20 12:58 90 20 121/56 94 L 09/10/20 12:43 98.9 F 100 18 109/48 90 L Intake and Output 09/10/20 09/10/20 09/10/20 06:59 14:59 22:59 Other: Weight 65.045 kg GENERAL: The patient is lying in bed and is not in acute distress. CHEST: The heart rate is regular rate rhythm. No carotid bruit bilaterally. LUNG: Short of breath but not in laborbed breathing. ABDOMEN/GI: Bowel sounds present in all 4 quadrants. No tenderness to palpation throughout. NEUROLOGICAL: Higher mental function: The patient is awake, alert, oriented to self and place but not time. She stated I don't know the year or month. Patient is following simple commands. No aphasia and no neglect. Cranial nerves: The pupils are round, equal and reactive to light and accommodation. Visual nelson are full to confrontation throughout. Extraocular movement is intact no nystagmus is noted. Facial sensation is normal to touch throughout. The facial strength is normal throughout. Hearing is mildly to moderately decreased bilaterally to hand rub. Tongue is midline and moved [id number] without any difficulty. No dysarthria is noted. Shoulder shrug is normal bilaterally. Motor: Gait is deferred because of patient condition. The strength is at least 4+/5 throughout. While lower are 3-4 bilaterally. Normal tone and bulk. Sensation: Sensation is normal to touch throughout. Reflexes (right/left): 2+ throughout while ankles are 1+ bilaterally. Plantars are downgoing bilaterally. Results - Laboratory Findings CBC and BMP: 09/10/20 13:14 09/10/20 12:03 Abnormal Lab Findings: Abnormal Labs 09/10/20 09/10/20 09/10/20 12:03 12:03 12:48 WBC Hgb Hct MCHC Neutrophils # Lymphocytes # APTT Sodium 131 L Potassium 5.2 H Carbon Dioxide 21 L BUN 31 H Glucose 100 H POC Glucose (mg/dL) 103 H AST 37 H Creatine Kinase 29 L Troponin I 0.143 H* Albumin 3.1 L 09/10/20 09/10/20 13:14 13:14 WBC 17.9 H Hgb 10.3 L Hct 33.5 L MCHC 30.7 L Neutrophils # 16.4 H Lymphocytes # 0.6 L APTT 19.8 L Sodium Potassium Carbon Dioxide BUN Glucose POC Glucose (mg/dL) AST Creatine Kinase Troponin I Albumin Assessment and Plan Assessment: This is an 89-year-old woman that presented to the emergency department on the 09/10/2020 for an episode of left facial droop and left arm weakness that resolved. Also of symptoms is the 11:20 AM today last normal is 11:00 in the morning today. Her NIH stroke scale was a 0. No IV TPA since the patient was back to baseline. Transient ischemic attack with presentation of left facial droop and left arm weakness. Leukocytosis likely from steroid use from recent COVID-19. Mild hyponatremia Elevated troponin Hypertension Hyperlipidemia Mitral valve prolapse status post replacement Hypothyroidism Plan: CT of the head is reported as moderate to severe generalized atrophy and confluent the periventricular burden of chronic small vessel ischemic disease, both progress from 2012. Mild ventriculomegaly also will progress probably due to the central cerebral atrophy. No acute intracranial abnormality seen. CT angiography of the head is reported as mild focal atherosclerotic stenosis supraclinoid left ICA of approximately 30-40%. No large vessel to cranial arterial occlusion, significant stenosis or aneurysm changes seen. 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 Correlate for potential covert pneumonia. No hemodynamically significant stenosis within the carotid or vertebral arteries of the neck. I will not order MRI the brain since it will not change person in her case. If the patient has repeated focal weakness I will consider repeating the MRI of the brain. Lipid panel is ordered by the primary team The patient is on aspirin 325mg daily. I Started the patient on Lipitor 20 mg daily the patient has any side effects we can go lower than that. I ordered the limited 2-D echo is that she had the patient had the fairly recent 2-D echo on 06/17/2020 which was reported as overall left ventricular systolic function is normal with ejection fraction 55-60%. Left atrium is severely dilated more than 40. 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 Mild to moderate tricuspid regurgitation. There is mild pulmonary hypertension. Ordered TSH. I also ordered vitamin B12 and folate level. Assuming the vitamin B-12 would be normal since the patient is on home vitamin B12 1000 g daily. I consulted the physical therapy and occupation therapy. Recommend continuous cardiac monitoring. Regarding the rest of the medical management including hyponatremia will defer the management to the primary team. Thank You for the consultation. Derek Mccollum M.D. Neuro-hospitalist Time with Patient: Greater than 30
[2020-09-10] MEDS: ATORVASTATIN 20 MG TAB PO SCH (16:59)
[2020-09-10] MEDS: LATANOPROST 0.005% OPHTH DROPS 2.5 ML BTL BOTH EYES SCH (21:49)
[2020-09-10] MEDS: DIVALPROEX SPRINKLE 125 MG CAP.SPRINK PO SCH (21:49)
[2020-09-10] MEDS: ASCORBIC ACID 500 MG TAB PO SCH (21:49)
[2020-09-11] MEDS: LEVOTHYROXINE 50 MCG TAB PO SCH (06:18)
[2020-09-11] MEDS: ASCORBIC ACID 500 MG TAB PO SCH ×2 (08:42→20:12)
[2020-09-11] MEDS: CYANOCOBALAMIN 500 MCG TAB PO SCH (08:42)
[2020-09-11] MEDS: ATORVASTATIN 20 MG TAB PO SCH (08:42)
[2020-09-11] MEDS: SODIUM CHLORIDE 0.9% 1,000 ML IV SCH (08:42)
[2020-09-11] MEDS: ZINC SULFATE 220 MG CAP PO SCH (08:42)
[2020-09-11] MEDS: ASPIRIN 325 MG TAB PO SCH (08:42)
--- NOTE | 2020-09-11 12:38 | P.HPIM ---
History of Present Illness H&P Date: 09/11/20 Chief Complaint: TIA This is an 89-year-old female patient who presented to ER with complaints of weakness and facial droop to right side. Patient was recently admitted and d ischarged and treated for Covid on 08/28/2020. Patient has completed her dexamethasone treatment. Patient currently resides at [facility]. Patient has a past medical history of hyperlipidemia hypertension mitral valve prolapse osteoarthritis thyroid disorder chronic lower back pain anxiety depression and recent Covid infections. Head CT was completed showing moderate to severe generalized atrophy and confluent periventricular burden of chronic small vessel ischemic disease both progressed from 2011. Mild ventriculomegaly also progressed probably due to central cerebral atrophy no acute intracranial abnormality seen. CTA of the neck completed showing no hemodynamically significant stenosis within the carotid and vertebral arteries of the neck multifocal peribronchial bronchial vascular airspace disease in the visualized upper lungs. Correlate for potential Covid pneumonia. Patient was evaluated by neurology services no MRI ordered at this time you aspirin and Lipitor daily. Patient with mildly elevated troponins will consult cardiology services. Will consult pulmonary services due to concerns of possible Covid pneumonia. At this time patient is showing no neurological deficits. Patient denies nausea vomiting or diarrhea. Patient denies chest pain or shortness breath. Patient denies any urinary burning or frequency Review of Systems Please refer to HPI otherwise unremarkable Past Medical History Past Medical History: Eye Disorder, Hyperlipidemia, Hypertension, Mitral Valve Prolapse (MVP), Osteoarthritis (OA), Thyroid Disorder Additional Past Medical History / Comment(s): HX OF ANEMIA, ULCER, GLAUCOMA, HX OF low back pain, HX STATES DIVERTICULOSIS AND HIATAL HERNIA, PT NOT AWARE History of Any Multi-Drug Resistant Organisms: None Reported Past Surgical History: Adenoidectomy, Cardiac Valve Replacement, Lu cystectomy, Joint Replacement, Orthopedic Surgery, Tonsillectomy Additional Past Surgical History / Comment(s): BILAT CATARACT, MITRAL VALVE REPLACED. BILAT KNEE REPLACEMENT. Epidural pain injectionsl x 3. Past Anesthesia/Blood Transfusion Reactions: No Reported Reaction Additional Past Anesthesia/Blood Transfusion Reaction / Comment(s): Pt has recieved blood with no adverse reaction. Past Psychological History: Anxiety, Depression, Panic Disorder Smoking Status: Never smoker Past Alcohol Use History: Occasional Past Drug Use History: None Reported - Past Family History Father Family Medical History: Pneumonia Additional Family Medical History / Comment(s): Father was healthy. He of pneumonia at age 81yrs Mother Family Medical History: Congestive Heart Failure (CHF) Additional Family Medical History / Comment(s): Mother had low blood pressure. She had a cholecystectomy. She at age 85yrs. Medications and Allergies Home Medications Medication Instructions Recorded Confirmed Type Furosemide [Lasix] 20 mg PO DAILY 01/31/14 09/10/20 History Latanoprost Ophth [Xalatan 0.005%] 1 drop BOTH EYES HS 01/31/14 09/10/20 History Loperamide [Imodium] 2 - 4 mg PO QID PRN MDD 6 doses 04/16/14 09/10/20 History Ergocalciferol [Vitamin D2 50,000 unit PO TH@0600 04/05/18 09/10/20 History (DRISDOL)] Acetaminophen Tab [Tylenol] 1,000 mg PO Q4-6H PRN 06/15/20 09/10/20 History Bisacodyl 5 mg PO DAILY PRN 06/15/20 09/10/20 History Calcium Polycarbophil [Fiber-Lax] 625 mg PO DAILY 06/15/20 09/10/20 History Cyanocobalamin (Vitamin B-12) 1,000 mcg PO DAILY 06/15/20 09/10/20 History [Vitamin B-12] Divalproex Sodium [Depakote 125 mg PO HS@199906/15/20 09/10/20 History Sprinkle] Ferrous Sulfate [Iron (65 MG 325 mg PO DAILY 06/15/20 09/10/20 History Elemental)] Guaifen/Dextromethorphan/PE 20 ml PO Q4H PRN 06/15/20 09/10/20 History [Mucinex Fast-Max Congest-Cough] Ascorbic Acid [Vitamin C] 500 mg PO BID 08/25/20 09/10/20 History Zinc 50 mg PO DAILY 08/25/20 09/10/20 History Acetaminophen Tab [Tylenol] 650 mg PO Q6HR PRN tab 08/28/20 09/10/20 Rx Albuterol Inhaler [Ventolin Hfa 2 puff INHALATION RT-QID PRN puff 08/28/20 09/10/20 Rx Inhaler] LORazepam [Ativan] 0.25 mg PO DAILY #2 tab 08/29/20 09/10/20 Rx Levothyroxine Sodium [Synthroid] 50 mcg PO DAILY@0700 09/10/20 09/10/20 History Allergies Allergy/AdvReac Type Severity Reaction Status Date / Time amoxicillin [From Augmentin] Allergy Unknown Verified 09/10/20 13:15 clavulanic acid Allergy Unknown Verified 09/10/20 13:15 [From Augmentin] codeine Allergy Rash/Hives Verified 09/10/20 13:15 pravastatin [From Pravachol] Allergy Unknown Verified 09/10/20 13:15 ramipril [From Altace] Allergy Unknown, Verified 09/10/20 13:15 SNEEZING RUNNY NOSE Physical Exam Vitals: Vital Signs Temp Pulse Pulse Resp BP BP Pulse Ox 09/11/20 12:20 94 18 113/55 91 L 09/11/20 08:38 98.1 F 82 22 117/57 91 L 09/11/20 04:00 98.6 F 88 18 112/67 96 09/11/20 00:00 98.2 F 84 17 142/65 97 09/10/20 17:00 84 18 119/63 97 09/10/20 16:28 98.2 F 76 18 122/75 95 09/10/20 16:00 88 18 123/66 99 09/10/20 15:00 90 18 102/62 98 09/10/20 14:00 90 18 114/79 96 09/10/20 13:13 97 20 126/71 95 09/10/20 12:58 90 20 121/56 94 L 09/10/20 12:43 98.9 F 100 18 109/48 90 L Intake and Output 09/10/20 09/11/20 09/11/20 22:59 06:59 14:59 Other: Voiding Method Diaper Diaper # Voids 1 1 # Bowel Movements 1 Weight 65.045 kg 66 kg Head normocephalic Neck supple Lungs clear to auscultation bilaterally no wheezing or crackles Heart regular rate and rhythm S1-S2, no rub or gallop Abdomen is soft nontender nondistended positive bowel sounds no hepatosplenomegaly Extremities no edema Neuro alert and orientated to 2. Results CBC & Chem 7: 09/10/20 13:14 09/10/20 12:03 Labs: Abnormal Lab Results - Last 24 Hours (Table) 09/10/20 09/10/20 09/10/20 Range/Units 12:03 12:03 12:48 WBC (3.8-10.6) k/uL Hgb (11.4-16.0) gm/dL Hct (34.0-46.0) % MCHC (31.0-37.0) g/dL Neutrophils # (1.3-7.7) k/uL Lymphocytes # (1.0-4.8) k/uL APTT (22.0-30.0) sec Sodium 131 L (137-145) mmol/L Potassium 5.2 H (3.5-5.1) mmol/L Carbon Dioxide 21 L (22-30) mmol/L BUN 31 H (7-17) mg/dL Glucose 100 H (74-99) mg/dL POC Glucose (mg/dL) 103 H (75-99) mg/dL AST 37 H (14-36) U/L Creatine Kinase 29 L (30-135) U/L Troponin I 0.143 H* (0.000-0.034) ng/mL Albumin 3.1 L (3.5-5.0) g/dL 09/10/20 09/10/20 09/11/20 Range/Units 13:14 13:14 00:00 WBC 17.9 H (3.8-10.6) k/uL Hgb 10.3 L (11.4-16.0) gm/dL Hct 33.5 L (34.0-46.0) % MCHC 30.7 L (31.0-37.0) g/dL Neutrophils # 16.4 H (1.3-7.7) k/uL Lymphocytes # 0.6 L (1.0-4.8) k/uL APTT 19.8 L (22.0-30.0) sec Sodium (137-145) mmol/L Potassium (3.5-5.1) mmol/L Carbon Dioxide (22-30) mmol/L BUN (7-17) mg/dL Glucose (74-99) mg/dL POC Glucose (mg/dL) (75-99) mg/dL AST (14-36) U/L Creatine Kinase (30-135) U/L Troponin I 0.134 H* (0.000-0.034) ng/mL Albumin (3.5-5.0) g/dL 09/11/20 Range/Units 06:59 WBC (3.8-10.6) k/uL Hgb (11.4-16.0) gm/dL Hct (34.0-46.0) % MCHC (31.0-37.0) g/dL Neutrophils # (1.3-7.7) k/uL Lymphocytes # (1.0-4.8) k/uL APTT (22.0-30.0) sec Sodium (137-145) mmol/L Potassium (3.5-5.1) mmol/L Carbon Dioxide (22-30) mmol/L BUN (7-17) mg/dL Glucose (74-99) mg/dL POC Glucose (mg/dL) (75-99) mg/dL AST (14-36) U/L Creatine Kinase (30-135) U/L Troponin I 0.108 H* (0.000-0.034) ng/mL Albumin (3.5-5.0) g/dL Thrombosis Risk Factor Assmnt - Choose All That Apply Any of the Below Risk Factors Present?: No Other Risk Factors: Yes Each Risk Factor Represents 3 Points: Age 75 years or older Other congenital or acquired thrombophilia - If yes, enter type in comment: No Thrombosis Risk Factor Assessment Total Risk Factor Score: 3 Thrombosis Risk Factor Assessment Level: Moderate Risk Assessment and Plan Assessment: 1. Left-sided facial droop with weakness secondary to TIA. Patient was evaluated by neurology continue aspirin and Lipitor at this time 2. Recent COVID infection. Concerns for possible Covid pneumonia seen on CT. Pulmonary services have been consulted 3. Mildly elevated troponins. Will consult cardiology services 4. Hyponatremia. Repeat labs have been ordered. Diuretics currently on hold. Continue gentle hydration 5. Hyperkalemia. Repeat labs ordered 6. Leukocytosis likely secondary to systemic steroids for Covid 7. Essential hypertension 8. Hyperlipidemia. Patient maintained on statin 9. Hypothyroidism. DVT prophylaxis heparin. GI prophylaxis Protonix Neurology, cardiology and pulmonary service is consulted Repeat labs ordered Time with Patient: Greater than 30
--- NOTE | 2020-09-11 13:26 | CONS ---
CONSULTATION Mrs. Robin is an 89-year-old female with a known history of mitral valve replacement performed for severe mitral regurgitation in 2008. At that time had no history of obstructive lung disease, history of hypertension, hyperlipidemia, as well as progressive dementia who came in to the emergency room and admitted yesterday because of possible weakness and facial drooping on the right side. Patient was recently in the hospital with COVID-19 infection. Cardiology consultation was requested because of troponin elevation. The patient is awake, alert but confused. She denies any symptoms of chest pain. She denies any dyspnea or dizziness. She denies any palpitation or syncope. She has been evaluated by the neurology service and felt that she may have had a TIA. The patient had an echocardiogram done recently that revealed a preserved left ventricular systolic function with mild stenosis of bioprosthetic valve and mild to moderate tricuspid regurgitation. MEDICATION: Her medication prior to admission included Synthroid, Ativan, Lasix, Depakote. She has received treatment for her COVID-19 during her last admission. REVIEW OF SYSTEMS: Is not very accurate, but the patient denies any chest pain or dyspnea. Denies any dizziness or palpitation. Denies any weakness. She was discharged home on 29 of August from her admission related to the COVID-19. PHYSICAL EXAMINATION: She is an 89-year-old female, alert, confused, in no apparent distress. Blood pressure 113/50 with the heart rate in the 90s. HEAD: Normocephalic. EYES: Sclerae anicteric. NECK: No bruit. LUNGS: Clear to auscultation. HEART: Regular rate and rhythm. S1, S2. No S3 with systolic murmur at the base. No diastolic murmur. No rub. ABDOMEN: Soft, nontender. Positive bowel sounds. No organomegaly. EXTREMITIES: No edema. LAB DATA: Lab data revealed BUN and creatinine 31 and 0.93. Potassium 5.2. Hemoglobin of 10.3. Troponin of 0.143, 0.134 and 0.108. EKG revealed a sinus mechanism with left ventricular hypertrophy and nonspecific ST-T wave changes. Her troponins were elevated during her last admission as well. IMPRESSION: 1. Possible transient ischemic attack. 2. Troponin elevation with no evidence to suggest acute coronary syndrome, could be related to her recent COVID-19 pneumonia. 3. Status post mitral valve replacement with no evidence of acute valvular dysfunction and she had an echocardiogram in June that was unremarkable. 4. History of progressive dementia. RECOMMENDATION: From the cardiac standpoint, I see no indication for any aggressive cardiac workup. We will continue observation. No change in the treatment is needed at this time. Thank you for this consult. We will follow with you. ALCIRA / APOORVAN: [id number] /
[2020-09-11 13:57] LABS: Albumin 2.8 g/dL (3.5-5.0); Calcium 8.3 mg/dL (8.4-10.2); Potassium 3.6 mmol/L (3.5-5.1); Total Bilirubin 0.5 mg/dL (0.2-1.3); Total Protein 5.8 g/dL (6.3-8.2)
[2020-09-11 14:24] LABS: Cholesterol 96 mg/dL (<200); HDL Cholesterol 38 mg/dL (40-60); LDL Cholesterol,Calculated 39 mg/dL (0-99); Triglycerides 96 mg/dL (<150)
--- NOTE | 2020-09-11 14:58 | P.CNPUL ---
History of Present Illness Consult date: 09/11/20 Chief complaint: Left facial droop, left arm weakness History of present illness: 89-year-old white female patient with recent history of "infection for which the patient was hospitalized, past medical history of hypertension, hyperlipidemia, history of mitral valve prolapse with replacement, hypothyroidism, chronic anemia, anxiety, depression, dementia, and patient [facility] and is a poor historian. She was brought into the hospital on 09/10/2020 when she was found to be slumped over with the left facial droop and left arm weakness her wheelchair. Patient was minimally responsive, her serum glucose was 157, upon arrival of the EMS she had no further facial droop or weakness of the arm. Her vital signs were stable on arrival to the hospital, no fever, patient had a pulse ox of 90% on room air, CT of the head showed moderate to severe generalized atrophy in and confluent. Ventricular Daly of chronic small vessel ischemic disease that progressed from 2011. No acute intracranial abnormality, CT angiography of the head showed mild focal atherosclerotic stenosis supraclinoid left ICA of approximately 30-40%, angiography CT of the neck showed multifocal. Bronchovascular disease likely related to recent history of COVID 19 pneumonia. No hemodynamically significant stenosis within the carotid or vertebral arteries of the neck. Chest x-ray showed multifocal consolidation right greater than the left, however patient is not complaining of any pulmonary complaints, she denies any shortness of breath, cough, no fever or chills, white blood cell count of 17.9, was 131, BUN is 31, no IV TPA was given related to patient's symptoms resolved by the time EMS had arrived. Apparently on 2 L of oxygen, his breathing comfortably, vital signs are stable, she is satting 91% on room air, lung sounds reveal diminished breath sounds, no wheezing, no rhonchi, no complaints of chest discomfort. Review of Systems All systems: negative Constitutional: Denies chills, Denies fever Eyes: denies blurred vision, denies pain Ears, nose, mouth and throat: Denies headache, Denies sore throat Cardiovascular: Denies chest pain, Denies shortness of breath Respiratory: Denies cough Gastrointestinal: Denies abdominal pain, Denies diarrhea, Denies nausea, Denies vomiting Genitourinary: Denies dysuria, Denies hematuria Musculoskeletal: Denies myalgias Integumentary: Denies pruritus, Denies rash Neurological: Reports change in mentation, Reports motor disturbance, Reports paralysis, Reports weakness, Denies numbness Psychiatric: Denies anxiety, Denies depression Endocrine: Denies fatigue, Denies weight change Past Medical History Past Medical History: Eye Disorder, Hyperlipidemia, Hypertension, Mitral Valve Prolapse (MVP), Osteoarthritis (OA), Thyroid Disorder Additional Past Medical History / Comment(s): HX OF ANEMIA, ULCER, GLAUCOMA, HX OF low back pain, HX STATES DIVERTICULOSIS AND HIATAL HERNIA, PT NOT AWARE History of Any Multi-Drug Resistant Organisms: None Reported Past Surgical History: Adenoidectomy, Cardiac Valve Replacement, Cho lecystectomy, Joint Replacement, Orthopedic Surgery, Tonsillectomy Additional Past Surgical History / Comment(s): BILAT CATARACT, MITRAL VALVE REPLACED. BILAT KNEE REPLACEMENT. Epidural pain injectionsl x 3. Past Anesthesia/Blood Transfusion Reactions: No Reported Reaction Additional Past Anesthesia/Blood Transfusion Reaction / Comment(s): Pt has recieved blood with no adverse reaction. Past Psychological History: Anxiety, Depression, Panic Disorder Smoking Status: Never smoker Past Alcohol Use History: Occasional Past Drug Use History: None Reported - Past Family History Father Family Medical History: Pneumonia Additional Family Medical History / Comment(s): Father was healthy. He of pneumonia at age 81yrs Mother Family Medical History: Congestive Heart Failure (CHF) Additional Family Medical History / Comment(s): Mother had low blood pressure. She had a cholecystectomy. She at age 85yrs. Medications and Allergies Home Medications Medication Instructions Recorded Confirmed Type Furosemide [Lasix] 20 mg PO DAILY 01/31/14 09/10/20 History Latanoprost Ophth [Xalatan 0.005%] 1 drop BOTH EYES HS 01/31/14 09/10/20 History Loperamide [Imodium] 2 - 4 mg PO QID PRN MDD 6 doses 04/16/14 09/10/20 History Ergocalciferol [Vitamin D2 50,000 unit PO TH@0600 04/05/18 09/10/20 History (DRISDOL)] Acetaminophen Tab [Tylenol] 1,000 mg PO Q4-6H PRN 06/15/20 09/10/20 History Bisacodyl 5 mg PO DAILY PRN 06/15/20 09/10/20 History Calcium Polycarbophil [Fiber-Lax] 625 mg PO DAILY 06/15/20 09/10/20 History Cyanocobalamin (Vitamin B-12) 1,000 mcg PO DAILY 06/15/20 09/10/20 History [Vitamin B-12] Divalproex Sodium [Depakote 125 mg PO HS@2000 06/15/20 09/10/20 History Sprinkle] Ferrous Sulfate [Iron (65 MG 325 mg PO DAILY 06/15/20 09/10/20 History Elemental)] Guaifen/Dextromethorphan/PE 20 ml PO Q4H PRN 06/15/20 09/10/20 History [Mucinex Fast-Max Congest-Cough] Ascorbic Acid [Vitamin C] 500 mg PO BID 08/25/20 09/10/20 History Zinc 50 mg PO DAILY 08/25/20 09/10/20 History Acetaminophen Tab [Tylenol] 650 mg PO Q6HR PRN tab 08/28/20 09/10/20 Rx Albuterol Inhaler [Ventolin Hfa 2 puff INHALATION RT-QID PRN puff 08/28/20 09/10/20 Rx Inhaler] LORazepam [Ativan] 0.25 mg PO DAILY #2 tab 08/29/20 09/10/20 Rx Levothyroxine Sodium [Synthroid] 50 mcg PO DAILY@0700 09/10/20 09/10/20 History Allergies Allergy/AdvReac Type Severity Reaction Status Date / Time amoxicillin [From Augmentin] Allergy Unknown Verified 09/10/20 13:15 clavulanic acid Allergy Unknown Verified 09/10/20 13:15 [From Augmentin] codeine Allergy Rash/Hives Verified 09/10/20 13:15 pravastatin [From Pravachol] Allergy Unknown Verified 09/10/20 13:15 ramipril [From Altace] Allergy Unknown, Verified 09/10/20 13:15 SNEEZING RUNNY NOSE Physical Exam Vitals: Vital Signs Temp Pulse Pulse Resp BP BP Pulse Ox 09/11/20 12:20 94 18 113/55 91 L 09/11/20 08:38 98.1 F 82 22 117/57 91 L 09/11/20 08:30 94 18 09/11/20 04:00 98.6 F 88 18 112/67 96 09/11/20 00:00 98.2 F 84 17 142/65 97 09/10/20 17:00 84 18 119/63 97 09/10/20 16:28 98.2 F 76 18 122/75 95 09/10/20 16:00 88 18 123/66 99 09/10/20 15:00 90 18 102/62 98 Intake and Output 09/10/20 09/11/20 09/11/20 22:59 06:59 14:59 Other: Voiding Method Diaper Diaper Diaper # Voids 1 1 # Bowel Movements 1 Weight 65.045 kg 66 kg GENERAL EXAM: Alert, very pleasant, 89-year-old white female, who is a poor historian, she is confused, she is only oriented to person, this is her baseline patient does have history of Alzheimer's dementia. Does not appear to be in any respiratory distress, currently on room air with a pulse ox of 91% comfortable in no apparent distress. HEAD: Normocephalic/atraumatic. EYES: Normal reaction of pupils, equal size. Conjunctiva pink, sclera white. NOSE: Clear with pink turbinates. THROAT: No erythema or exudates. NECK: No masses, no JVD, no thyroid enlargement, no adenopathy. CHEST: No chest wall deformity. Symmetrical expansion. LUNGS: Equal air entry with no crackles, wheeze, rhonchi or dullness. CVS: Regular rate and rhythm, normal S1 and S2, no gallops, no murmurs, no rubs ABDOMEN: Soft, nontender. No hepatosplenomegaly, normal bowel sounds, no guarding or rigidity. EXTREMITIES: No clubbing, no edema, no cyanosis, 2+ pulses and upper and lower extremities. MUSCULOSKELETAL: Muscle strength and tone normal. SPINE: No scoliosis or deformity SKIN: No rashes CENTRAL NERVOUS SYSTEM: Alert and oriented -1. No focal deficits, tone is normal in all 4 extremities. PSYCHIATRIC: Alert and oriented -1. Appropriate affect. Intact judgment and insight. Results - Laboratory Findings CBC and BMP: 09/10/20 13:14 09/11/20 13:17 PT/INR, D-dimer PT 10.3 sec (9.0-12.0) 09/10/20 13:14 INR 1.0 (<1.2) 09/10/20 13:14 Abnormal lab findings: Abnormal Labs 09/10/20 09/10/20 09/10/20 12:03 12:03 12:48 WBC Hgb Hct MCHC Neutrophils # Lymphocytes # APTT Sodium 131 L Potassium 5.2 H Carbon Dioxide 21 L BUN 31 H Glucose 100 H POC Glucose (mg/dL) 103 H Calcium AST 37 H Creatine Kinase 29 L Troponin I 0.143 H* Total Protein Albumin 3.1 L HDL Cholesterol Vitamin B12 09/10/20 09/10/20 09/11/20 13:14 13:14 00:00 WBC 17.9 H Hgb 10.3 L Hct 33.5 L MCHC 30.7 L Neutrophils # 16.4 H Lymphocytes # 0.6 L APTT 19.8 L Sodium Potassium Carbon Dioxide BUN Glucose POC Glucose (mg/dL) Calcium AST Creatine Kinase Troponin I 0.134 H* Total Protein Albumin HDL Cholesterol Vitamin B12 09/11/20 09/11/20 09/11/20 06:59 06:59 13:17 WBC Hgb Hct MCHC Neutrophils # Lymphocytes # APTT Sodium Potassium Carbon Dioxide BUN Glucose POC Glucose (mg/dL) Calcium AST Creatine Kinase Troponin I 0.108 H* Total Protein Albumin HDL Cholesterol 38 L Vitamin B12 1868.0 H 09/11/20 09/11/20 13:17 13:17 WBC Hgb Hct MCHC Neutrophils # Lymphocytes # APTT Sodium 136 L Potassium Carbon Dioxide 21 L BUN 25 H Glucose 142 H POC Glucose (mg/dL) Calcium 8.3 L AST Creatine Kinase Troponin I 0.087 H* Total Protein 5.8 L Albumin 2.8 L HDL Cholesterol Vitamin B12 - Diagnostic Findings Chest x-ray: report reviewed, image reviewed Assessment and Plan Plan: Assessment: #1. Acute left facial droop and left arm weakness, related to TIA, symptoms resolved time the EMS was called from the [facility]. Patient is being followed by neurology, and is currently on aspirin and Lipitor #2. Recent COVID 19 infection, patient has completed her Decadron, currently on room air, is not having any pulmonary symptoms #3. Mildly elevated troponins #4. Mild hyponatremia, related to diuretic therapy patient is receiving gentle hydration #5. History of Alzheimer's dementia #6. Hypertension #7. Hyperlipidemia #8. History of mitral valve prolapse with surgical replacement #9. History of anemia #10. History of anxiety and depression #11. Never smoker Plan: Chest x-ray has been reviewed, patient is on room air, she denies any pulmonary complaints, we'll continue to monitor her, she has completed her dexamethasone course, she denies any cough, denies any chest discomfort. We'll switch the subcu heparin to Lovenox 40 mg once daily, we will order a stat d-dime. Tinea to monitor the patient for any signs of worsening hypoxemia or dyspnea I performed a history & physical examination of the patient and discussed their management with my nurse practitioner, Tamanna Bragg. I reviewed the nurse gibson rowe's note and agree with the documented findings and plan of care. Lung sounds are positive for sounds throughout the lung nelson. The findings and the impression was discussed with the patient. I attest to the documentation by the nurse practitioner. Time with Patient: Greater than 30
[2020-09-11] MEDS ORDERED: ENOXAPARIN 40 MG/0.4 ML SYRINGE SQ SCH ×2 (15:00→17:00)
[2020-09-11] MEDS ORDERED: HEPARIN SODIUM,PORCINE 5,000 UNIT/ML 1 ML VIAL SQ SCH (16:00)
[2020-09-11] MEDS ORDERED: ENOXAPARIN 60 MG/0.6 ML SYRINGE SQ SCH (17:00)
--- NOTE | 2020-09-11 17:05 | P.PN ---
Subjective Progress Note Date: 09/11/20 Patient was seen at bedside and she stated that she's doing doing about the same history as compared to yesterday. The per the patient nurse she has not seen any further facial weakness since the patient has been in the hospital. He is also no focal weakness noted as well. Objective - Vital Signs Vital signs: Vital Signs Temp 98.1 F 09/11/20 08:38 Pulse 94 09/11/20 12:20 Resp 18 09/11/20 12:20 BP 113/55 09/11/20 12:20 Pulse Ox 91 L 09/11/20 12:20 Intake & Output 09/10/20 09/11/20 09/11/20 18:59 06:59 18:59 Weight 65.045 kg 66 kg Other: Voiding Method Diaper Diaper # Voids 1 # Bowel Movements 1 - Exam GENERAL: The patient is lying in bed and is not in acute distress. NEUROLOGICAL: Higher mental function: The patient is awake, alert, oriented to self and place but not time. She stated I don't know the year or month. Patient is following simple commands. No aphasia and no neglect. Cranial nerves: The pupils are round, equal and reactive to light and accommodation. Visual nelson are full to confrontation throughout. Extraocular movement is intact no nystagmus is noted. Facial sensation is normal to touch throughout. The facial strength is normal throughout. Hearing is mildly to moderately decreased bilaterally to hand rub. Tongue is midline and moved [id number] without any difficulty. No dysarthria is noted. Shoulder shrug is normal bilaterally. Motor: Gait is deferred because of patient condition. The strength is at least 4+/5 throughout. While lower are 3-4 bilaterally. Normal tone and bulk. Sensation: Sensation is normal to touch throughout. Reflexes (right/left): 2+ throughout while ankles are 1+ bilaterally. Plantars are downgoing bilaterally. - Labs CBC & Chem 7: 09/10/20 13:14 09/11/20 13:17 Labs: Abnormal Lab Results - Last 24 Hours (Table) 09/10/20 09/10/20 09/10/20 Range/Units 12:03 12:03 13:14 WBC (3.8-10.6) k/uL Hgb (11.4-16.0) gm/dL Hct (34.0-46.0) % MCHC (31.0-37.0) g/dL Neutrophils # (1.3-7.7) k/uL Lymphocytes # (1.0-4.8) k/uL APTT 19.8 L (22.0-30.0) sec Sodium 131 L (137-145) mmol/L Potassium 5.2 H (3.5-5.1) mmol/L Carbon Dioxide 21 L (22-30) mmol/L BUN 31 H (7-17) mg/dL Glucose 100 H (74-99) mg/dL AST 37 H (14-36) U/L Creatine Kinase 29 L (30-135) U/L Troponin I 0.143 H* (0.000-0.034) ng/mL Albumin 3.1 L (3.5-5.0) g/dL 09/10/20 09/11/20 09/11/20 Range/Units 13:14 00:00 06:59 WBC 17.9 H (3.8-10.6) k/uL Hgb 10.3 L (11.4-16.0) gm/dL Hct 33.5 L (34.0-46.0) % MCHC 30.7 L (31.0-37.0) g/dL Neutrophils # 16.4 H (1.3-7.7) k/uL Lymphocytes # 0.6 L (1.0-4.8) k/uL APTT (22.0-30.0) sec Sodium (137-145) mmol/L Potassium (3.5-5.1) mmol/L Carbon Dioxide (22-30) mmol/L BUN (7-17) mg/dL Glucose (74-99) mg/dL AST (14-36) U/L Creatine Kinase (30-135) U/L Troponin I 0.134 H* 0.108 H* (0.000-0.034) ng/mL Albumin (3.5-5.0) g/dL Assessment and Plan Assessment: This is an 89-year-old woman that presented to the emergency department on the 09/10/2020 for an episode of left facial droop and left arm weakness that resolved. Also of symptoms is the 11:20 AM today last normal is 11:00 in the morning today. Her NIH stroke scale was a 0. No IV TPA since the patient was back to baseline. Transient ischemic attack with presentation of left facial droop and left arm weakness. Leukocytosis likely from steroid use from recent COVID-19. Mild hyponatremia Elevated troponin Hypertension Hyperlipidemia Mitral valve prolapse status post replacement Hypothyroidism Plan: CT of the head is reported as moderate to severe generalized atrophy and confluent the periventricular burden of chronic small vessel ischemic disease, both progress from 2012. Mild ventriculomegaly also will progress probably due to the central cerebral atrophy. No acute intracranial abnormality seen. CT angiography of the head is reported as mild focal atherosclerotic stenosis supraclinoid left ICA of approximately 30-40%. No large vessel to cranial arterial occlusion, significant stenosis or aneurysm changes seen. 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 Correlate for potential covert pneumonia. No hemodynamically significant stenosis within the carotid or vertebral arteries of the neck. I will not order MRI the brain since it will not frame changer in her case. If the patient has repeated focal weakness I will consider MRI of the brain. Lipid panel: Is ordered by the primary team is pending. The patient is on aspirin 325mg daily and continue Lipitor 20mg daily. I ordered the limited 2-D echo is that she had the patient had the fairly recent 2-D echo on 06/17/2020 and the report is pending TSH: 2.210 which is within normal limits. Vitamin B12 and folate levels are pending. I Assume vitamin B-12 would be normal since the patient is on home vitamin B12 1000 g daily. Physical therapy and occupation therapy are consulted. Recommend continuous cardiac monitoring. Regarding the elevated troponin the primary team consulted cardiology team. Regarding the rest of the medical management including hyponatremia will defer the management to the primary team. Derek Mccollum M.D. Neuro-hospitalist Time with Patient: Less than 30
--- NOTE | 2020-09-11 18:33 | US ---
EXAMINATION TYPE: US venous doppler duplex LE DATE OF EXAM: 09/11/2020 6:09 PM COMPARISON: US CLINICAL HISTORY: R/O DVT. Limited history, patient poor historian. R/O DVT. SIDE PERFORMED: Bilateral TECHNIQUE: The lower extremity deep venous system is examined utilizing real time linear array sonog ar with graded compression, doppler sonography and color-flow sonography. VESSELS IMAGED: Common Femoral Vein Deep Femoral Vein Greater Saphenous Vein * Femoral Vein Popliteal Vein Small Saphenous Vein * Proximal Calf Veins (* superficial vessels) Right Leg: No evidence of DVT in veins imaged at this time from prox calf veins to CFV/GSV. Left Leg: There appear to be internal echoes throughout the left CFV, femoral vein, deep femoral vei n, popliteal vein,and prox calf veins. These vessels show minimal to no color flow and do not compre ss. IMPRESSION: There is evidence of acute and chronic deep vein thrombosis in the entire deep venous sy stem of the left leg. No evidence of deep vein thrombosis in the right leg.
[2020-09-11] MEDS ORDERED: HEPARIN SODIUM,PORCINE 10,000 UNIT/ML 1 ML VIAL IV ONE (19:40)
[2020-09-11] MEDS ORDERED: HEPARIN SODIUM,PORCINE 5,000 UNIT/ML 1 ML VIAL IV PRN (19:40)
[2020-09-11] MEDS ORDERED: HEPARIN SOD,PORK IN 0.45% NACL 25,000 UNIT in 0.45% NACL 1 250ML.BAG IV SCH (19:45)
[2020-09-11] MEDS: DIVALPROEX SPRINKLE 125 MG CAP.SPRINK PO SCH (20:12)
[2020-09-11] MEDS: LATANOPROST 0.005% OPHTH DROPS 2.5 ML BTL BOTH EYES SCH (20:12)
[2020-09-11 20:24] LABS: Partial Thromboplastin Time 24.9 sec (22.0-30.0)
[2020-09-11 20:25] LABS: Basophils # (A) 0.1 k/uL (0-0.2); Basophils % (A) 1 %; Eosinophils # (A) 0.1 k/uL (0-0.7); Eosinophils % (A) 1 %; HGB 9.6 gm/dL (11.4-16.0); Hypochromasia Moderate; Lymphocytes # (A) 0.5 k/uL (1.0-4.8); Lymphocytes % (A) 4 %; MCHC 31.9 g/dL (31.0-37.0); MCV 84.4 fL (80.0-100.0); Mean Platelet Volume 6.4; Monocytes # (A) 0.6 k/uL (0-1.0); Monocytes % (A) 5 %; Neutrophils # (A) 11.5 k/uL (1.3-7.7); Neutrophils % (A) 88 %; Platelet Count 207 k/uL (150-450); RBC 3.55 m/uL (3.80-5.40); RDW 13.7 % (11.5-15.5); WBC 13.1 k/uL (3.8-10.6)
[2020-09-12] MEDS: SODIUM CHLORIDE 0.9% 1,000 ML IV SCH (06:32)
[2020-09-12] MEDS: PANTOPRAZOLE 40 MG TABLET PO SCH (06:37)
[2020-09-12] MEDS: LEVOTHYROXINE 50 MCG TAB PO SCH (06:37)
[2020-09-12] MEDS: CYANOCOBALAMIN 500 MCG TAB PO SCH (09:28)
[2020-09-12] MEDS: ATORVASTATIN 20 MG TAB PO SCH (09:28)
[2020-09-12] MEDS: ZINC SULFATE 220 MG CAP PO SCH (09:28)
[2020-09-12] MEDS: ASCORBIC ACID 500 MG TAB PO SCH ×2 (09:28→20:04)
[2020-09-12] MEDS: METOPROLOL TARTRATE 25 MG TAB PO SCH ×2 (09:28→20:04)
[2020-09-12] MEDS: ASPIRIN 325 MG TAB PO SCH (09:28)
[2020-09-12 09:56] LABS: Basophils # (A) 0.1 k/uL (0-0.2); Basophils % (A) 1 %; Eosinophils # (A) 0.2 k/uL (0-0.7); Eosinophils % (A) 2 %; HCT 28.3 % (34.0-46.0); Hypochromasia Slight; Lymphocytes # (A) 0.6 k/uL (1.0-4.8); Lymphocytes % (A) 6 %; MCH 26.1 pg (25.0-35.0); MCHC 31.8 g/dL (31.0-37.0); Mean Platelet Volume 6.6; Monocytes # (A) 0.5 k/uL (0-1.0); Monocytes % (A) 5 %; Neutrophils # (A) 8.1 k/uL (1.3-7.7); Neutrophils % (A) 83 %; Platelet Count 234 k/uL (150-450); RBC 3.46 m/uL (3.80-5.40); RDW 13.7 % (11.5-15.5); WBC 9.8 k/uL (3.8-10.6)
--- NOTE | 2020-09-12 10:05 | PN ---
PROGRESS NOTE Mrs. Robin is an 89-year-old female who presented with facial drooping on the right side and possible weakness. She was recently admitted with COVID-19 infection. She has history of mitral valve replacement done in 2008, history of advanced dementia. She had mild troponin elevation but no associated symptoms. She is doing well this morning. She is awake, confused, but hemodynamically stable. She denies any chest pain. No dizziness. She denies any nausea or vomiting. No cough. She continues to be at this time on aspirin once a day, IV heparin, Lipitor 20 mg daily. PHYSICAL EXAMINATION: Blood pressure 121/50 with the heart rate in the 80s and 90s. LUNGS: Clear. HEART: Regular rate and rhythm. S1, S2. No S3 with systolic murmur. No diastolic murmur. ABDOMEN: Soft, nontender. EXTREMITIES: No edema. LAB DATA: She had a duplex scan of her lower extremities that revealed acute and chronic deep vein thrombosis on the left side. IMPRESSION: 1. Mild troponin elevation with no evidence of acute coronary syndrome, could be related to the recent pneumonia COVID-19 infection. 2. Probable transient ischemic attack. 3. Deep vein thrombosis. 4. Dementia. RECOMMENDATION: From the cardiac standpoint stable, I would not recommend any further cardiac workup. The patient is on IV heparin at this time, I would recommend to transition his oral anticoagulant. I will add a low-dose beta sang to her regimen. ALCIRA / OSCAR: [id number] /
[2020-09-12 11:10] LABS: Albumin 2.7 g/dL (3.5-5.0); Calcium 8.2 mg/dL (8.4-10.2); Potassium 4.3 mmol/L (3.5-5.1); Total Bilirubin 0.5 mg/dL (0.2-1.3); Total Protein 5.6 g/dL (6.3-8.2)
[2020-09-12] MEDS: APIXABAN 5 MG TAB PO SCH ×2 (12:15→20:03)
--- NOTE | 2020-09-12 13:56 | P.PN ---
Subjective Progress Note Date: 09/12/20 She was seen at bedside and she stated that she feels the same as on initial presentation to the hospital. Denies any worsening of the weakness or numbness. She continues to be on the nasal cannula and has intermittent shortness of breath Her troponins are trending down. Leukocytosis has resolved. Objective - Vital Signs Vital signs: Vital Signs Temp 99.1 F 09/12/20 08:00 Pulse 84 09/12/20 08:00 Resp 22 09/12/20 11:54 BP 122/63 09/12/20 08:00 Pulse Ox 94 L 09/12/20 11:54 Intake & Output 09/11/20 09/12/20 09/12/20 18:59 06:59 18:59 Intake Total 650 680.19 647.98 Balance 650 680.19 647.98 Weight 67 kg Intake: Intake, IV Titration 400 480.19 67.98 Amount Heparin Sod,Pork in 0.45% 80.19 67.98 NaCl 25,000 unit In 0.45 % NaCl 1 250ml.bag @ 18 UNITS/KG/HR 11.88 mls/hr IV .Q21H3M TWAN Rx#: [id number] Sodium Chloride 0.9% 1, 400 400 000 ml @ 50 mls/hr IV . Q20H TWAN Rx#:[id number] Oral 250 200 580 Other: Voiding Method Diaper Diaper Diaper # Voids 1 # Bowel Movements 1 - Exam GENERAL: The patient is lying in bed and is not in acute distress. NEUROLOGICAL: Higher mental function: The patient is awake, alert, oriented to self and place. She stated it was the 2019 and correctly stated the month. Patient is following simple commands. No aphasia and no neglect. Cranial nerves: The pupils are round, equal and reactive to light and acco mmodation. Visual nelson are full to confrontation throughout. Extraocular movement is intact no nystagmus is noted. Facial sensation is normal to touch throughout. The facial strength is normal throughout. Hearing is mildly to moderately decreased bilaterally to hand rub. Tongue is midline and moved [id number] without any difficulty. No dysarthria is noted. Shoulder shrug is normal bilaterally. Motor: Gait is deferred because of patient condition. The strength is at least 4+ to 5- in bilateral upper while 4+ in bilateral lower. Normal tone and bulk. Sensation: Sensation is normal to touch throughout. Reflexes (right/left): 2+ throughout while ankles are 1+ bilaterally. Plantars are downgoing bilaterally. - Labs CBC & Chem 7: 09/12/20 09:32 09/12/20 09:32 Labs: Abnormal Lab Results - Last 24 Hours (Table) 09/10/20 09/11/20 09/11/20 Range/Units 13:14 06:59 13:17 WBC (3.8-10.6) k/uL RBC (3.80-5.40) m/uL Hgb (11.4-16.0) gm/dL Hct (34.0-46.0) % Neutrophils # (1.3-7.7) k/uL Lymphocytes # (1.0-4.8) k/uL APTT (22.0-30.0) sec D-Dimer (<0.60) mg/L FEU Sodium (137-145) mmol/L Carbon Dioxide (22-30) mmol/L BUN (7-17) mg/dL Glucose (74-99) mg/dL Calcium (8.4-10.2) mg/dL Troponin I (0.000-0.034) ng/mL Total Protein (6.3-8.2) g/dL Albumin (3.5-5.0) g/dL HDL Cholesterol 38 L (40-60) mg/dL Vitamin B12 1868.0 H (200.0-944.0) pg/mL RBC Folate 870 H (280 - 791) ng/mL 09/11/20 09/11/20 09/11/20 Range/Units 13:17 13:17 15:09 WBC (3.8-10.6) k/uL RBC (3.80-5.40) m/uL Hgb (11.4-16.0) gm/dL Hct (34.0-46.0) % Neutrophils # (1.3-7.7) k/uL Lymphocytes # (1.0-4.8) k/uL APTT (22.0-30.0) sec D-Dimer >34.10 H (<0.60) mg/L FEU Sodium 136 L (137-145) mmol/L Carbon Dioxide 21 L (22-30) mmol/L BUN 25 H (7-17) mg/dL Glucose 142 H (74-99) mg/dL Calcium 8.3 L (8.4-10.2) mg/dL Troponin I 0.087 H* (0.000-0.034) ng/mL Total Protein 5.8 L (6.3-8.2) g/dL Albumin 2.8 L (3.5-5.0) g/dL HDL Cholesterol (40-60) mg/dL Vitamin B12 (200.0-944.0) pg/mL RBC Folate (280 - 791) ng/mL 09/11/20 09/12/20 09/12/20 Range/Units 19:56 01:37 09:32 WBC 13.1 H (3.8-10.6) k/uL RBC 3.55 L 3.46 L (3.80-5.40) m/uL Hgb 9.6 L 9.0 L (11.4-16.0) gm/dL Hct 30.0 L 28.3 L (34.0-46.0) % Neutrophils # 11.5 H 8.1 H (1.3-7.7) k/uL Lymphocytes # 0.5 L 0.6 L (1.0-4.8) k/uL APTT >200.0 H* (22.0-30.0) sec D-Dimer (<0.60) mg/L FEU Sodium (137-145) mmol/L Carbon Dioxide (22-30) mmol/L BUN (7-17) mg/dL Glucose (74-99) mg/dL Calcium (8.4-10.2) mg/dL Troponin I (0.000-0.034) ng/mL Total Protein (6.3-8.2) g/dL Albumin (3.5-5.0) g/dL HDL Cholesterol (40-60) mg/dL Vitamin B12 (200.0-944.0) pg/mL RBC Folate (280 - 791) ng/mL 09/12/20 09/12/20 Range/Units 09:32 09:32 WBC (3.8-10.6) k/uL RBC (3.80-5.40) m/uL Hgb (11.4-16.0) gm/dL Hct (34.0-46.0) % Neutrophils # (1.3-7.7) k/uL Lymphocytes # (1.0-4.8) k/uL APTT 68.5 H (22.0-30.0) sec D-Dimer (<0.60) mg/L FEU Sodium 135 L (137-145) mmol/L Carbon Dioxide 21 L (22-30) mmol/L BUN 23 H (7-17) mg/dL Glucose (74-99) mg/dL Calcium 8.2 L (8.4-10.2) mg/dL Troponin I (0.000-0.034) ng/mL Total Protein 5.6 L (6.3-8.2) g/dL Albumin 2.7 L (3.5-5.0) g/dL HDL Cholesterol (40-60) mg/dL Vitamin B12 (200.0-944.0) pg/mL RBC Folate (280 - 791) ng/mL Assessment and Plan Assessment: This is an 89-year-old woman that presented to the emergency department on the 09/10/2020 for an episode of left facial droop and left arm weakness that resolved. Also of symptoms is the 11:20 AM today last normal is 11:00 in the morning today. Her NIH stroke scale was a 0. No IV TPA since the patient was back to baseline. Transient ischemic attack with presentation of left facial droop and left arm weakness. Leukocytosis likely from steroid use from recent COVID-19.----resolved Mild hyponatremia Elevated troponin--trending down Hypertension Hyperlipidemia Mitral valve prolapse status post replacement Hypothyroidism Plan: CT of the head is reported as moderate to severe generalized atrophy and confluent the periventricular burden of chronic small vessel ischemic disease, both progress from 2012. Mild ventriculomegaly also will progress probably due to the central cerebral atrophy. No acute intracranial abnormality seen. CT angiography of the head is reported as mild focal atherosclerotic stenosis supraclinoid left ICA of approximately 30-40%. No large vessel to cranial arterial occlusion, significant stenosis or aneurysm changes seen. 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 Correlate for potential covert pneumonia. No hemodynamically significant stenosis within the carotid or vertebral arteries of the neck. I will not order MRI the brain since it will not private branch exchange repairer in her case. If the patient has repeated focal weakness I will consider MRI of the brain. Lipid panel: Triglyceride 96, cholesterol 96, LDL 39, HDL 38. The patient is on aspirin 325mg daily and continue Lipitor 20mg daily. Limited 2-D echo report is pending, she had the patient had fairly recent 2-D echo on 06/17/2020 and the report is pending (She had it complete on first day of presentation) TSH: 2.210 which is within normal limits. Vitamin B12: 1868 which is normal. RBC folate: 870 which is normal. Patient is on home vitamin B12 1000 g daily. Physical therapy and occupation therapy are consulted. Recommend continuous cardiac monitoring. Regarding the elevated troponin the primary team consulted cardiology team. Regarding the rest of the medical management including hyponatremia will defer the management to the primary team. Derek Mccollum M.D. Neuro-hospitalist Time with Patient: Less than 30
--- NOTE | 2020-09-12 15:17 | P.PN ---
Subjective Progress Note Date: 09/12/20 Principal diagnosis: Acute left facial droop and left arm weakness secondary to TIA 89-year-old white female patient with recent history of "infection for which the patient was hospitalized, past medical history of hypertension, hyperlipidemia, history of mitral valve prolapse with replacement, hypothyroidism, chronic anemia, anxiety, depression, dementia, and patient is a resident of the local [facility] and is a poor historian. She was brought into the hospital on 09/10/2020 when she was found to be slumped over with the left facial droop and left arm weakness her wheelchair. Patient was minimally responsive, her serum glucose was 157, upon arrival of the EMS she had no further facial droop or weakness of the arm. Her vital signs were stable on arrival to the hospital, no fever, patient had a pulse ox of 90% on room air, CT of the head showed moderate to severe generalized atrophy in and confluent. Ventricular Daly of chronic small vessel ischemic disease that progressed from 2011. No acute intracranial abnormality, CT angiography of the head showed mild focal atherosclerotic stenosis supraclinoid left ICA of approximately 30-40%, angiography CT of the neck showed multifocal. Bronchovascular disease likely related to recent history of COVID 19 pneumonia. No hemodynamically significant stenosis within the carotid or vertebral arteries of the neck. Chest x-ray showed multifocal consolidation right greater than the left, however patient is not complaining of any pulmonary complaints, she denies any shortness of breath, cough, no fever or chills, white blood cell count of 17.9, was 131, BUN is 31, no IV TPA was given related to patient's symptoms resolved by the time EMS had arrived. Apparently on 2 L of oxygen, his breathing comfortably, vital signs are stable, she is satting 91% on room air, lung sounds reveal diminished breath sounds, no wheezing, no rhonchi, no complaints of chest discomfort. The patient is seen today 09/12/2020 in follow-up on the selective care unit. She is currently awake and alert in no acute distress. No ongoing left-sided facial droop or left arm weakness. No shortness of breath, cough or congestion. The patient is a poor historian. She is rolling off her supplemental oxygen. O2 saturation 90% on room air. She was found to have a DVT of the the left lower extremity. She was initiated on a heparin drip. The plan is to transition to [facility]. White count 9.8. Hemoglobin 9.0. Platelets 234. Sodium 135. Potassium 4.3. Creatinine 0.90. Objective - Vital Signs Vital signs: Vital Signs Temp 99.0 F 09/12/20 12:00 Pulse 79 09/12/20 12:00 Resp 20 09/12/20 14:52 BP 126/59 09/12/20 12:00 Pulse Ox 90 L 09/12/20 14:52 Intake & Output 09/11/20 09/12/20 09/12/20 18:59 06:59 18:59 Intake Total 650 680.19 887.98 Balance 650 680.19 887.98 Weight 67 kg Intake: Intake, IV Titration 400 480.19 67.98 Amount Heparin Sod,Pork in 0.45% 80.19 67.98 NaCl 25,000 unit In 0.45 % NaCl 1 250ml.bag @ 18 UNITS/KG/HR 11.88 mls/hr IV .Q21H3M TWAN Rx#: [id number] Sodium Chloride 0.9% 1, 400 400 000 ml @ 50 mls/hr IV . Q20H TWAN Rx#:[id number] Oral 250 200 820 Other: Voiding Method Diaper Diaper Diaper # Voids 1 0 # Bowel Movements 1 - Exam GENERAL EXAM: Alert, very pleasant, 89-year-old female patient, who is a poor historian, she is confused, she is only oriented to person, this is her baseline patient does have history of Alzheimer's dementia. Does not appear to be in any respiratory distress, currently on room air. HEAD: Normocephalic/atraumatic. EYES: Normal reaction of pupils, equal size. Conjunctiva pink, sclera white. NOSE: Clear with pink turbinates. THROAT: No erythema or exudates. NECK: No masses, no JVD, no thyroid enlargement, no adenopathy. CHEST: No chest wall deformity. Symmetrical expansion. LUNGS: Equal air entry with bilateral scattered rhonchi right greater than left. CVS: Regular rate and rhythm, normal S1 and S2, no gallops, no murmurs, no rubs ABDOMEN: Soft, nontender. No hepatosplenomegaly, normal bowel sounds, no gu arding or rigidity. EXTREMITIES: No clubbing, no edema, no cyanosis, 2+ pulses and upper and lower e xtremities. MUSCULOSKELETAL: Muscle strength and tone normal. SPINE: No scoliosis or deformity SKIN: No rashes CENTRAL NERVOUS SYSTEM: Alert and oriented -1. No focal deficits, tone is normal in all 4 extremities. PSYCHIATRIC: Alert and oriented -1. Appropriate affect. Intact judgment and insight. - Labs CBC & Chem 7: 09/12/20 09:32 09/12/20 09:32 Labs: Abnormal Lab Results - Last 24 Hours (Table) 09/10/20 09/11/20 09/11/20 Range/Units 13:14 15:09 19:56 WBC 13.1 H (3.8-10.6) k/uL RBC 3.55 L (3.80-5.40) m/uL Hgb 9.6 L (11.4-16.0) gm/dL Hct 30.0 L (34.0-46.0) % Neutrophils # 11.5 H (1.3-7.7) k/uL Lymphocytes # 0.5 L (1.0-4.8) k/uL APTT (22.0-30.0) sec D-Dimer >34.10 H (<0.60) mg/L FEU Sodium (137-145) mmol/L Carbon Dioxide (22-30) mmol/L BUN (7-17) mg/dL Calcium (8.4-10.2) mg/dL Total Protein (6.3-8.2) g/dL Albumin (3.5-5.0) g/dL RBC Folate 870 H (280 - 791) ng/mL 09/12/20 09/12/20 09/12/20 Range/Units 01:37 09:32 09:32 WBC (3.8-10.6) k/uL RBC 3.46 L (3.80-5.40) m/uL Hgb 9.0 L (11.4-16.0) gm/dL Hct 28.3 L (34.0-46.0) % Neutrophils # 8.1 H (1.3-7.7) k/uL Lymphocytes # 0.6 L (1.0-4.8) k/uL APTT >200.0 H* (22.0-30.0) sec D-Dimer (<0.60) mg/L FEU Sodium 135 L (137-145) mmol/L Carbon Dioxide 21 L (22-30) mmol/L BUN 23 H (7-17) mg/dL Calcium 8.2 L (8.4-10.2) mg/dL Total Protein 5.6 L (6.3-8.2) g/dL Albumin 2.7 L (3.5-5.0) g/dL RBC Folate (280 - 791) ng/mL 09/12/20 Range/Units 09:32 WBC (3.8-10.6) k/uL RBC (3.80-5.40) m/uL Hgb (11.4-16.0) gm/dL Hct (34.0-46.0) % Neutrophils # (1.3-7.7) k/uL Lymphocytes # (1.0-4.8) k/uL APTT 68.5 H (22.0-30.0) sec D-Dimer (<0.60) mg/L FEU Sodium (137-145) mmol/L Carbon Dioxide (22-30) mmol/L BUN (7-17) mg/dL Calcium (8.4-10.2) mg/dL Total Protein (6.3-8.2) g/dL Albumin (3.5-5.0) g/dL RBC Folate (280 - 791) ng/mL Assessment and Plan Assessment: 1 Acute left facial droop and left arm weakness, related to TIA, symptoms resolved time the EMS was called from the [facility]. The patient was found to have a left lower extremity DVT and initiated on a heparin drip. 2 Recent COVID 19 infection, patient has completed her Decadron, currently on room air, is not having any pulmonary symptoms 3 Mildly elevated troponins 4 Mild hyponatremia, related to diuretic therapy patient is receiving gentle hydration 5 History of Alzheimer's dementia 6 Hypertension 7 Hyperlipidemia 8 History of mitral valve prolapse with surgical replacement 9 History of anemia 10 History of anxiety and depression 11 Never smoker Plan: The patient was seen and evaluated by Dr. Reyes Heparin drip to be transitioned to Eliquis The patient is noncompliant with supplemental oxygen of any sort Current oxygenation 90% on room air We will continue to follow I, the cosigning physician, performed a history & physical examination of the patient. Lungs sounds with scattered rhonchi bilaterally right greater than left. Maintaining O2 saturations in the 90s on room air. Refusing to wear supplemental oxygen. I discussed the assessment and plan of care with my nurse practitioner, Nanette Terry. I attest to the above note as dictated by her.
--- NOTE | 2020-09-12 18:35 | P.PN ---
Subjective Progress Note Date: 09/12/20 This is an 89-year-old female patient who presented to ER with complaints of weakness and facial droop to right side. Patient was recently admitted and discharged and treated for Covid on 08/28/2020. Patient has completed her dexamethasone treatment. Patient currently resides at [facility]. Stevie vidal has a past medical history of hyperlipidemia hypertension mitral valve prolapse osteoarthritis thyroid disorder chronic lower back pain anxiety depression and recent Covid infections. Head CT was completed showing moderate to severe generalized atrophy and confluent periventricular burden of chronic small vessel ischemic disease both progressed from 2011. Mild ventriculomegaly also progressed probably due to central cerebral atrophy no acute intracranial abnormality seen. CTA of the neck completed showing no hemodynamically significant stenosis within the carotid and vertebral arteries of the neck multifocal peribronchial bronchial vascular airspace disease in the visualized upper lungs. Correlate for potential Covid pneumonia. Patient was evaluated by neurology services no MRI ordered at this time you aspirin and Lipitor daily. Patient with mildly elevated troponins will consult cardiology services. Will consult pulmonary services due to concerns of possible Covid pneumonia. At this time patient is showing no neurological deficits. Patient denies nausea vomiting or diarrhea. Patient denies chest pain or shortness breath. Patient denies any urinary burning or frequency On 09/12/2020 patient was seen and examined on the medical floor she is alert confused in no apparent distress, she is complaining of cough otherwise she is denying any complaints at this time she is sitting up in bed and eating her meal, chest x-ray and computed tomography scan of the chest still revealing multifocal pneumonia related to her recent Covid 19 infection O2 sat duration is 90% on room air patient is not compliant with oxygen supplements. 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 patient received IV heparin and will be transitioned to oral Eliquis today Objective - Vital Signs Vital signs: Vital Signs Temp 99.1 F 09/12/20 08:00 Pulse 84 09/12/20 08:00 Resp 22 09/12/20 11:54 BP 122/63 09/12/20 08:00 Pulse Ox 94 L 09/12/20 11:54 Intake & Output 09/11/20 09/12/20 09/12/20 18:59 06:59 18:59 Intake Total 650 680.19 647.98 Balance 650 680.19 647.98 Weight 67 kg Intake: Intake, IV Titration 400 480.19 67.98 Amount Heparin Sod,Pork in 0.45% 80.19 67.98 NaCl 25,000 unit In 0.45 % NaCl 1 250ml.bag @ 18 UNITS/KG/HR 11.88 mls/hr IV .Q21H3M [facility] Rx#: [id number] Sodium Chloride 0.9% 1, 400 400 000 ml @ 50 mls/hr IV . Q20H [facility] Rx#:[id number] Oral 250 200 580 Other: Voiding Method Diaper Diaper Diaper # Voids 1 # Bowel Movements 1 - Exam In general patient is alert slightly confused in no apparent distress Head normocephalic and atraumatic Neck supple no JVD no goiter Lungs clear to auscultation bilaterally no wheezing or crackles Heart regular rate and rhythm S1-S2, no rub or gallop Abdomen is soft nontender nondistended positive bowel sounds no hepatosplenomegaly Extremities no edema no cyanosis or clubbing Neurological examination reveals left sided facial drooping otherwise no acute deficit - Labs CBC & Chem 7: 09/12/20 09:32 09/12/20 09:32 Labs: Abnormal Lab Results - Last 24 Hours (Table) 09/10/20 09/11/20 09/11/20 Range/Units 13:14 06:59 13:17 WBC (3.8-10.6) k/uL RBC (3.80-5.40) m/uL Hgb (11.4-16.0) gm/dL Hct (34.0-46.0) % Neutrophils # (1.3-7.7) k/uL Lymphocytes # (1.0-4.8) k/uL APTT (22.0-30.0) sec D-Dimer (<0.60) mg/L FEU Sodium (137-145) mmol/L Carbon Dioxide (22-30) mmol/L BUN (7-17) mg/dL Glucose (74-99) mg/dL Calcium (8.4-10.2) mg/dL Troponin I (0.000-0.034) ng/mL Total Protein (6.3-8.2) g/dL Albumin (3.5-5.0) g/dL HDL Cholesterol 38 L (40-60) mg/dL Vitamin B12 1868.0 H (200.0-944.0) pg/mL RBC Folate 870 H (280 - 791) ng/mL 09/11/20 09/11/20 09/11/20 Range/Units 13:17 13:17 15:09 WBC (3.8-10.6) k/uL RBC (3.80-5.40) m/uL Hgb (11.4-16.0) gm/dL Hct (34.0-46.0) % Neutrophils # (1.3-7.7) k/uL Lymphocytes # (1.0-4.8) k/uL APTT (22.0-30.0) sec D-Dimer >34.10 H (<0.60) mg/L FEU Sodium 136 L (137-145) mmol/L Carbon Dioxide 21 L (22-30) mmol/L BUN 25 H (7-17) mg/dL Glucose 142 H (74-99) mg/dL Calcium 8.3 L (8.4-10.2) mg/dL Troponin I 0.087 H* (0.000-0.034) ng/mL Total Protein 5.8 L (6.3-8.2) g/dL Albumin 2.8 L (3.5-5.0) g/dL HDL Cholesterol (40-60) mg/dL Vitamin B12 (200.0-944.0) pg/mL RBC Folate (280 - 791) ng/mL 09/11/20 09/12/20 09/12/20 Range/Units 19:56 01:37 09:32 WBC 13.1 H (3.8-10.6) k/uL RBC 3.55 L 3.46 L (3.80-5.40) m/uL Hgb 9.6 L 9.0 L (11.4-16.0) gm/dL Hct 30.0 L 28.3 L (34.0-46.0) % Neutrophils # 11.5 H 8.1 H (1.3-7.7) k/uL Lymphocytes # 0.5 L 0.6 L (1.0-4.8) k/uL APTT >200.0 H* (22.0-30.0) sec D-Dimer (<0.60) mg/L FEU Sodium (137-145) mmol/L Carbon Dioxide (22-30) mmol/L BUN (7-17) mg/dL Glucose (74-99) mg/dL Calcium (8.4-10.2) mg/dL Troponin I (0.000-0.034) ng/mL Total Protein (6.3-8.2) g/dL Albumin (3.5-5.0) g/dL HDL Cholesterol (40-60) mg/dL Vitamin B12 (200.0-944.0) pg/mL RBC Folate (280 - 791) ng/mL 09/12/20 09/12/20 Range/Units 09:32 09:32 WBC (3.8-10.6) k/uL RBC (3.80-5.40) m/uL Hgb (11.4-16.0) gm/dL Hct (34.0-46.0) % Neutrophils # (1.3-7.7) k/uL Lymphocytes # (1.0-4.8) k/uL APTT 68.5 H (22.0-30.0) sec D-Dimer (<0.60) mg/L FEU Sodium 135 L (137-145) mmol/L Carbon Dioxide 21 L (22-30) mmol/L BUN 23 H (7-17) mg/dL Glucose (74-99) mg/dL Calcium 8.2 L (8.4-10.2) mg/dL Troponin I (0.000-0.034) ng/mL Total Protein 5.6 L (6.3-8.2) g/dL Albumin 2.7 L (3.5-5.0) g/dL HDL Cholesterol (40-60) mg/dL Vitamin B12 (200.0-944.0) pg/mL RBC Folate (280 - 791) ng/mL Assessment and Plan Assessment: 1. Left-sided facial droop with weakness secondary to TIA. Patient was evaluated by neurology continue aspirin and Lipitor at this time 2. Recent COVID infection. Concerns for possible Covid pneumonia seen on CT. Pulmonary services have been consulted 3. Mildly elevated troponins. Will consult cardiology services 4. Hyponatremia. Repeat labs have been ordered. Diuretics currently on hold. Continue gentle hydration 5. Hyperkalemia. Repeat labs ordered 6. Leukocytosis likely secondary to systemic steroids for Covid 7. Essential hypertension 8. Hyperlipidemia. Patient maintained on statin 9. Hypothyroidism. 10. Evidence of lower extremity DVT patient was started on IV heparin, patient will be switched to Eliquis today GI prophylaxis Protonix Neurology, cardiology and pulmonary service is consulted Repeat labs ordered
[2020-09-12] MEDS: LATANOPROST 0.005% OPHTH DROPS 2.5 ML BTL BOTH EYES SCH (20:04)
[2020-09-12] MEDS: DIVALPROEX SPRINKLE 125 MG CAP.SPRINK PO SCH (20:04)
[2020-09-13] MEDS: SODIUM CHLORIDE 0.9% 1,000 ML IV SCH ×2 (04:31→23:25)
[2020-09-13] MEDS: PANTOPRAZOLE 40 MG TABLET PO SCH (06:53)
[2020-09-13] MEDS: LEVOTHYROXINE 50 MCG TAB PO SCH (06:53)
--- NOTE | 2020-09-13 07:31 | ECHOF ---
Referral Reason: MEASUREMENTS -------- HEIGHT: 167.6 cm WEIGHT: 64.9 kg BP: IVSd: 1.4 cm (0.6 - 1.1) LVIDd: 2.5 cm (3.9 - 5.3) LVPWd: 1.6 cm (0.6 - 1.1) IVSs: 1.6 cm LVIDs: 1.6 cm LVPWs: 1.6 cm MV E Rodri: 1.26 m/s MV DecT: 535 ms MV A Rodri: 1.87 m/s MV E/A Ratio: 0.67 AV maxP.49 mmHg AV meanP.35 mmHg AR PHT: 373 ms RAP: 5.00 mmHg RVSP: 38.55 mmHg FINDINGS -------- This was a technically difficult study with suboptimal views. Limited Study The left ventricular size is normal. There is moderate concentric left ventricular hypertrophy. O verall left ventricular systolic function is normal with, an EF between 55 - 60 %. 5.0mg of Lumason was utilized for enhancement of images Aortic valve is trileaflet and is mildly thickened. Trace amount of aortic regurgitation. There is mild aortic stenosis present. Mild mitral regurgitation is present. The peak and mean MV gradients are 17.50mmHg 9.32mmHg as shea sured by doppler. Moderate mitral stenosis. There is no pericardial effusion. CONCLUSIONS -------- 1. This was a technically difficult study with suboptimal views. 2. Limited Study 3. The left ventricular size is normal. 4. There is moderate concentric left ventricular hypertrophy. 5. Overall left ventricular systolic function is normal with, an EF between 55 - 60 %. 6. 5.0mg of Lumason was utilized for enhancement of images 7. Aortic valve is trileaflet and is mildly thickened. 8. Trace amount of aortic regurgitation. 9. There is mild aortic stenosis present. 10. Mild mitral regurgitation is present. 11. The peak and mean MV gradients are 17.50mmHg 9.32mmHg as measured by doppler. 12. Moderate mitral stenosis. 13. There is no pericardial effusion. 14. Consider MISSY for more optimal eval if clinically indicated KRAFT DIGESTER OPERATOR: Samantha Mullen RDCS
[2020-09-13 08:26] LABS: Basophils # (A) 0.1 k/uL (0-0.2); Basophils % (A) 1 %; Eosinophils # (A) 0.2 k/uL (0-0.7); Eosinophils % (A) 2 %; HGB 8.7 gm/dL (11.4-16.0); Hypochromasia Slight; Lymphocytes # (A) 0.6 k/uL (1.0-4.8); Lymphocytes % (A) 6 %; MCH 26.5 pg (25.0-35.0); MCHC 32.2 g/dL (31.0-37.0); MCV 82.1 fL (80.0-100.0); Mean Platelet Volume 6.6; Monocytes # (A) 0.6 k/uL (0-1.0); Monocytes % (A) 5 %; Neutrophils # (A) 8.6 k/uL (1.3-7.7); Neutrophils % (A) 84 %; Platelet Count 227 k/uL (150-450); RBC 3.29 m/uL (3.80-5.40); RDW 13.7 % (11.5-15.5); WBC 10.3 k/uL (3.8-10.6)
[2020-09-13 08:41] LABS: Albumin 2.5 g/dL (3.5-5.0); Calcium 8.1 mg/dL (8.4-10.2); Potassium 3.8 mmol/L (3.5-5.1); Total Bilirubin 0.5 mg/dL (0.2-1.3); Total Protein 5.4 g/dL (6.3-8.2)
[2020-09-13] MEDS: METOPROLOL TARTRATE 25 MG TAB PO SCH ×2 (09:36→19:59)
[2020-09-13] MEDS: ASPIRIN 325 MG TAB PO SCH (09:36)
[2020-09-13] MEDS: ATORVASTATIN 20 MG TAB PO SCH (09:36)
[2020-09-13] MEDS: ZINC SULFATE 220 MG CAP PO SCH (09:36)
[2020-09-13] MEDS: ASCORBIC ACID 500 MG TAB PO SCH ×2 (09:36→19:59)
[2020-09-13] MEDS: APIXABAN 5 MG TAB PO SCH ×2 (09:36→19:59)
[2020-09-13] MEDS: CYANOCOBALAMIN 500 MCG TAB PO SCH (09:36)
--- NOTE | 2020-09-13 12:18 | PN ---
PROGRESS NOTE Mrs. Robin is an 89-year-old female known history of mitral valve surgery who presented with symptoms of cerebrovascular accident. She had evidence of DVT. She is stable at this time. She is denying any chest pain. She denies any dizziness or palpitation. She denies any nausea. She continued to be in sinus mechanism. Her echocardiogram revealed a preserved systolic function. She has been off her diuretic because of hyponatremia, but her edema is worse. She continued to be on Eliquis 10 mg twice a day, aspirin once a day, Lipitor 20 mg daily, levothyroxine, metoprolol tartrate 25 mg twice a day. PHYSICAL EXAMINATION: Blood pressure 109/50 with the heart rate in the 70s. LUNGS: Clear. HEART: Regular rate and rhythm. S1, S2. No S3 with a systolic murmur. No diastolic murmur. ABDOMEN: Soft, nontender. EXTREMITIES: +1 to 2 edema bilaterally. LAB DATA: Lab data revealed sodium 134, BUN and creatinine 21 and 0.96. IMPRESSION: 1. Cerebrovascular accident. 2. Deep vein thrombosis. 3. History of mitral valve replacement. 4. Worsening peripheral edema. RECOMMENDATION: I will give her IV diuretic for 24 hours. Follow her renal function and her sodium. Otherwise, continue rest of the medical regimen. I will stop her aspirin because she is on the Eliquis and her age and increase of risk of bleeding and depending her progress, further recommendation will be made. MMODL / IJN: [id number] /
--- NOTE | 2020-09-13 12:45 | P.PN ---
Subjective Progress Note Date: 09/13/20 Principal diagnosis: Acute left facial droop and left arm weakness secondary to TIA 89-year-old white female patient with recent history of "infection for which the patient was hospitalized, past medical history of hypertension, hyperlipidemia, history of mitral valve prolapse with replacement, hypothyroidism, chronic anemia, anxiety, depression, dementia, and patient [facility] a [facility] and is a poor historian. She was brought into the hospital on 09/10/2020 when she was found to be slumped over with the left facial droop and left arm weakness her wheelchair. Patient was minimally responsive, her serum glucose was 157, upon arrival of the EMS she had no further facial droop or weakness of the arm. Her vital signs were stable on arrival to the hospital, no fever, patient had a pulse ox of 90% on room air, CT of the head showed moderate to severe generalized atrophy in and confluent. Ventricular Daly of chronic small vessel ischemic disease that progressed from 2011. No acute intracranial abnormality, CT angiography of the head showed mild focal atherosclerotic stenosis supraclinoid left ICA of approximately 30-40%, angiography CT of the neck showed multifocal. Bronchovascular disease likely related to recent history of COVID 19 pneumonia. No hemodynamically significant stenosis within the carotid or vertebral arteries of the neck. Chest x-ray showed multifocal consolidation right greater than the left, however patient is not complaining of any pulmonary complaints, she denies any shortness of breath, cough, no fever or chills, white blood cell count of 17.9, was 131, BUN is 31, no IV TPA was given related to patient's symptoms resolved by the time EMS had arrived. Apparently on 2 L of oxygen, his breathing comfortably, vital signs are stable, she is satting 91% on room air, lung sounds reveal diminished breath sounds, no wheezing, no rhonchi, no complaints of chest discomfort. The patient is seen today 09/12/2020 in follow-up on the selective care unit. She is currently awake and alert in no acute distress. No ongoing left-sided facial droop or left arm weakness. No shortness of breath, cough or congestion. The patient is a poor historian. She is rolling off her supplemental oxygen. O2 saturation 90% on room air. She was found to have a DVT of the the left lower extremity. She was initiated on a heparin drip. [facility] White count 9.8. Hemoglobin 9.0. Platelets 234. Sodium 135. Potassium 4.3. Creatinine 0.90. The patient is seen today 09/13/2020 in follow-up on the selective care unit. She is currently maintaining O2 saturations in the 90s on 2 L/m per nasal cannula. 88% on room air. White count 10.3. Hemoglobin 8.7. Lymphocytes 0.6. Sodium 134. Potassium 3.8. Creatinine 0.96. Doppler positive for left lower extremity DVT. Transitioned to Eliquis. Remains on IV diuretics. Objective - Vital Signs Vital signs: Vital Signs Temp 98.2 F 09/13/20 04:00 Pulse 80 09/13/20 08:00 Resp 20 09/13/20 08:00 BP 109/55 09/13/20 04:00 Pulse Ox 94 L 09/13/20 04:00 Intake & Output 09/12/20 09/13/20 09/13/20 18:59 06:59 18:59 Intake Total 1127.98 250 140 Balance 1127.98 250 140 Weight 69 kg Intake: Intake, IV Titration 67.98 Amount Heparin Sod,Pork in 0.45% 67.98 NaCl 25,000 unit In 0.45 % NaCl 1 250ml.bag @ 18 UNITS/KG/HR 11.88 mls/hr IV .Q21H3M [facility] Rx#: [id number] Oral 1060 250 140 Other: Voiding Method Diaper Diaper Diaper # Voids 0 1 1 - Exam GENERAL EXAM: Alert, very pleasant, 89-year-old female patient, who is a poor historian, she is only oriented to person, this is her baseline patient does have history of Alzheimer's dementia. Does not appear to be in any respiratory distress, currently on 2 L/m per nasal cannula. HEAD: Normocephalic/atraumatic. EYES: Normal reaction of pupils, equal size. Conjunctiva pink, sclera white. NOSE: Clear with pink turbinates. THROAT: No erythema or exudates. NECK: No masses, no JVD, no thyroid enlargement, no adenopathy. CHEST: No chest wall deformity. Symmetrical expansion. LUNGS: Equal air entry with bilateral scattered rhonchi right greater than left. CVS: Regular rate and rhythm, normal S1 and S2, no gallops, no murmurs, no rubs ABDOMEN: Soft, nontender. No hepatosplenomegaly, normal bowel sounds, no guarding or rigidity. EXTREMITIES: No clubbing, no edema, no cyanosis, 2+ pulses and upper and lower extremities. MUSCULOSKELETAL: Muscle strength and tone normal. SPINE: No scoliosis or deformity SKIN: No rashes CENTRAL NERVOUS SYSTEM: Alert and oriented -1. No focal deficits, tone is normal in all 4 extremities. PSYCHIATRIC: Alert and oriented -1. Appropriate affect. Intact judgment and insight. - Labs CBC & Chem 7: 09/13/20 07:57 09/13/20 07:57 Labs: Abnormal Lab Results - Last 24 Hours (Table) 09/13/20 09/13/20 Range/Units 07:57 07:57 RBC 3.29 L (3.80-5.40) m/uL Hgb 8.7 L (11.4-16.0) gm/dL Hct 27.0 L (34.0-46.0) % Neutrophils # 8.6 H (1.3-7.7) k/uL Lymphocytes # 0.6 L (1.0-4.8) k/uL Sodium 134 L (137-145) mmol/L Chloride 108 H (98-107) mmol/L Carbon Dioxide 21 L (22-30) mmol/L BUN 21 H (7-17) mg/dL Glucose 101 H (74-99) mg/dL Calcium 8.1 L (8.4-10.2) mg/dL Total Protein 5.4 L (6.3-8.2) g/dL Albumin 2.5 L (3.5-5.0) g/dL Assessment and Plan Assessment: 1 Acute left facial droop and left arm weakness, related to TIA, symptoms resolved time the EMS was called from the [facility]. The patient was found to have a left lower extremity DVT and currently on Eliquis. 2 Recent COVID 19 infection, patient has completed her Decadron, currently on 2 L/m per nasal cannula, is not having any pulmonary symptoms 3 Mildly elevated troponins 4 Mild hyponatremia, related to diuretic therapy patient is receiving gentle hydration 5 History of Alzheimer's dementia 6 Hypertension 7 Hyperlipidemia 8 History of mitral valve prolapse with surgical replacement 9 History of anemia 10 History of anxiety and depression 11 Never smoker Plan: The patient was seen and evaluated by Dr. Reyes Transitioned to [facility] Currently wearing oxygen at 2 L/m Discharge to [facility] once cleared medically We will see as needed I, the cosigning physician, performed a history & physical examination of the patient. Lungs sounds with scattered rhonchi bilaterally right greater than left. Maintaining O2 saturations in the 90s on 2 L/m per nasal cannula. Refusing to wear supplemental oxygen. I discussed the assessment and plan of care with my nurse practitioner, Nanette Terry. I attest to the above note as dictated by her.
--- NOTE | 2020-09-13 13:14 | P.PN ---
Subjective Progress Note Date: 09/13/20 Patient was seen at bedside and she said that she is about the same as yesterday. There is no worsening of the weakness, numbness or any further facial droop. She continues to be on nasal cannula. Objective - Vital Signs Vital signs: Vital Signs Temp 98.2 F 09/13/20 04:00 Pulse 80 09/13/20 08:00 Resp 20 09/13/20 08:00 BP 109/55 09/13/20 04:00 Pulse Ox 94 L 09/13/20 04:00 Intake & Output 09/12/20 09/13/20 09/13/20 18:59 06:59 18:59 Intake Total 1127.98 250 140 Balance 1127.98 250 140 Weight 69 kg Intake: Intake, IV Titration 67.98 Amount Heparin Sod,Pork in 0.45% 67.98 NaCl 25,000 unit In 0.45 % NaCl 1 250ml.bag @ 18 UNITS/KG/HR 11.88 mls/hr IV .Q21H3M [facility] Rx#: [id number] Oral 1060 250 140 Other: Voiding Method Diaper Diaper Diaper # Voids 0 1 1 - Exam GENERAL: The patient is lying in bed and is not in acute distress. NEUROLOGICAL: Higher mental function: The patient is awake, alert, oriented to self and place. She correctly stated the month but continued to say year . Patient is following simple commands. No aphasia and no neglect. Cranial nerves: The pupils are round, equal and reactive to light and accommodation. Visual nelson are full to confrontation throughout. Extraocular movement is intact no nystagmus is noted. Facial sensation is normal to touch throughout. The facial strength is normal throughout. Hearing is mildly to moderately decreased bilaterally to hand rub. Tongue is midline and moved [id number] without any difficulty. No dysarthria is noted. Shoulder shrug is normal bilaterally. Motor: Gait is deferred because of patient condition. The strength is at least 4+ to 5- in bilateral upper while 4+ in bilateral lower. Normal tone and bulk. Sensation: Sensation is normal to touch throughout. Reflexes (right/left): 2+ throughout while ankles are 1+ bilaterally. Plantars are downgoing bilaterally. - Labs CBC & Chem 7: 09/13/20 07:57 09/13/20 07:57 Labs: Abnormal Lab Results - Last 24 Hours (Table) 09/13/20 09/13/20 Range/Units 07:57 07:57 RBC 3.29 L (3.80-5.40) m/uL Hgb 8.7 L (11.4-16.0) gm/dL Hct 27.0 L (34.0-46.0) % Neutrophils # 8.6 H (1.3-7.7) k/uL Lymphocytes # 0.6 L (1.0-4.8) k/uL Sodium 134 L (137-145) mmol/L Chloride 108 H (98-107) mmol/L Carbon Dioxide 21 L (22-30) mmol/L BUN 21 H (7-17) mg/dL Glucose 101 H (74-99) mg/dL Calcium 8.1 L (8.4-10.2) mg/dL Total Protein 5.4 L (6.3-8.2) g/dL Albumin 2.5 L (3.5-5.0) g/dL Assessment and Plan Assessment: This is an 89-year-old woman that presented to the emergency department on the 09/10/2020 for an episode of left facial droop and left arm weakness that resolved. Also of symptoms is the 11:20 AM today last normal is 11:00 in the mo rning today. Her NIH stroke scale was a 0. No IV TPA since the patient was back to baseline. Transient ischemic attack with presentation of left facial droop and left arm weakness. Leukocytosis likely from steroid use from recent COVID-19.----resolved Mild hyponatremia Elevated troponin--trending down Hypertension Hyperlipidemia Mitral valve prolapse status post replacement Hypothyroidism Plan: CT of the head is reported as moderate to severe generalized atrophy and confluent the periventricular burden of chronic small vessel ischemic disease, both progress from 2012. Mild ventriculomegaly also will progress probably due to the central cerebral atrophy. No acute intracranial abnormality seen. CT angiography of the head is reported as mild focal atherosclerotic stenosis supraclinoid left ICA of approximately 30-40%. No large vessel to cranial arterial occlusion, significant stenosis or aneurysm changes seen. 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 Correlate for potential covert pneumonia. No hemodynamically significant stenosis within the carotid or vertebral arteries of the neck. I will not order MRI the brain since it will not change management lead in her case. If the patient has repeated focal weakness I will consider MRI of the brain. Lipid panel: Triglyceride 96, cholesterol 96, LDL 39, HDL 38. The patient is on aspirin 325mg daily and continue Lipitor 20mg daily. Limited 2-D echo: It is reported that this was technically difficult study with suboptimal views. There is moderate concentric left ventricular hypertrophy. Ejection fraction of 50-60%. Moderate mitral stenosis. Aortic valve is trileaflet and is mildly thickened. TSH: 2.210 which is within normal limits. Vitamin B12: 1868 which is normal. RBC folate: 870 which is normal. Patient is on home vitamin B12 1000 g daily. Physical therapy and occupation therapy are consulted. Recommend continuous cardiac monitoring. Regarding the elevated troponin the primary team consulted cardiology team. Regarding the rest of the medical management including hyponatremia will defer the management to the primary team. There is no further neurological workup. We will sign off. Please reconsult as needed. Derek Mccollum M.D. Neuro-hospitalist Time with Patient: Less than 30
--- NOTE | 2020-09-13 13:58 | P.PN ---
Subjective Progress Note Date: 09/13/20 This is an 89-year-old female patient who presented to ER with complaints of weakness and facial droop to right side. Patient was recently admitted and discharged and treated for Covid on 08/28/2020. Patient has completed her dexamethasone treatment. Patient currently resides at [facility]. Stevie vidal has a past medical history of hyperlipidemia hypertension mitral valve prolapse osteoarthritis thyroid disorder chronic lower back pain anxiety depression and recent Covid infections. Head CT was completed showing moderate to severe generalized atrophy and confluent periventricular burden of chronic small vessel ischemic disease both progressed from 2011. Mild ventriculomegaly also progressed probably due to central cerebral atrophy no acute intracranial abnormality seen. CTA of the neck completed showing no hemodynamically significant stenosis within the carotid and vertebral arteries of the neck multifocal peribronchial bronchial vascular airspace disease in the visualized upper lungs. Correlate for potential Covid pneumonia. Patient was evaluated by neurology services no MRI ordered at this time you aspirin and Lipitor daily. Patient with mildly elevated troponins will consult cardiology services. Will consult pulmonary services due to concerns of possible Covid pneumonia. At this time patient is showing no neurological deficits. Patient denies nausea vomiting or diarrhea. Patient denies chest pain or shortness breath. Patient denies any urinary burning or frequency On 09/12/2020 patient was seen and examined on the medical floor she is alert confused in no apparent distress, she is complaining of cough otherwise she is denying any complaints at this time she is sitting up in bed and eating her meal, chest x-ray and computed tomography scan of the chest still revealing multifocal pneumonia related to her recent Covid 19 infection O2 sat duration is 90% on room air patient is not compliant with oxygen supplements. 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 On 09/13/2020 patient was seen and examined on the medical floor she is alert, confused, in no distress, she is scheduled to have a swallow evaluation today she is not voicing any specific complaints, most of the time she is refusing oxygen however when she is compliant with oxygen she is feeling better and her O2 sat duration is above 90 on 2-4 L per nasal cannula Objective - Vital Signs Vital signs: Vital Signs Temp 98.2 F 09/13/20 04:00 Pulse 80 09/13/20 08:00 Resp 20 09/13/20 08:00 BP 109/55 09/13/20 04:00 Pulse Ox 94 L 09/13/20 04:00 Intake & Output 09/12/20 09/13/20 09/13/20 18:59 06:59 18:59 Intake Total 1127.98 250 140 Balance 1127.98 250 140 Weight 69 kg Intake: Intake, IV Titration 67.98 Amount Heparin Sod,Pork in 0.45% 67.98 NaCl 25,000 unit In 0.45 % NaCl 1 250ml.bag @ 18 UNITS/KG/HR 11.88 mls/hr IV .[id number] [facility] Rx#: [id number] Oral 1060 250 140 Other: Voiding Method Diaper Diaper Diaper # Voids 0 1 1 - Exam In general patient is alert slightly confused in no apparent distress Head normocephalic and atraumatic Neck supple no JVD no goiter Lungs clear to auscultation bilaterally no wheezing or crackles Heart regular rate and rhythm S1-S2, no rub or gallop Abdomen is soft nontender nondistended positive bowel sounds no hepatosplenomegaly Extremities no edema no cyanosis or clubbing Neurological examination reveals left sided facial drooping otherwise no acute deficit - Labs CBC & Chem 7: 09/13/20 07:57 09/13/20 07:57 Labs: Abnormal Lab Results - Last 24 Hours (Table) 09/13/20 09/13/20 Range/Units 07:57 07:57 RBC 3.29 L (3.80-5.40) m/uL Hgb 8.7 L (11.4-16.0) gm/dL Hct 27.0 L (34.0-46.0) % Neutrophils # 8.6 H (1.3-7.7) k/uL Lymphocytes # 0.6 L (1.0-4.8) k/uL Sodium 134 L (137-145) mmol/L Chloride 108 H (98-107) mmol/L Carbon Dioxide 21 L (22-30) mmol/L BUN 21 H (7-17) mg/dL Glucose 101 H (74-99) mg/dL Calcium 8.1 L (8.4-10.2) mg/dL Total Protein 5.4 L (6.3-8.2) g/dL Albumin 2.5 L (3.5-5.0) g/dL Assessment and Plan Assessment: 1. Left-sided facial droop with weakness secondary to TIA. Patient was evaluated by neurology continue aspirin and Lipitor at this time 2. Recent COVID infection. Concerns for possible Covid pneumonia seen on CT. Pulmonary services have been consulted 3. Mildly elevated troponins. Will consult cardiology services 4. Hyponatremia. Repeat labs have been ordered. Diuretics currently on hold. Continue gentle hydration 5. Hyperkalemia. Repeat labs ordered 6. Leukocytosis likely secondary to systemic steroids for Covid 7. Essential hypertension 8. Hyperlipidemia. Patient maintained on statin 9. Hypothyroidism. 10. Evidence of lower extremity DVT patient was started on IV heparin, patient will be switched to Eliquis today GI prophylaxis Protonix Neurology, cardiology and pulmonary service is consulted Repeat labs ordered
--- NOTE | 2020-09-13 14:58 | FL ---
EXAMINATION TYPE: FL barium swallow w video DATE OF EXAM: 09/13/2020 COMPARISON: NONE HISTORY: Covid, dysphasia TECHNIQUE: Fluoroscopy. FINDINGS: Fluoroscopic guidance was provided for the procedure performed in conjunction with the [facility] pathology department. Please see complete report forthcoming from the Speech Pathology departmen t. Various consistencies from thin liquid to solids were administered. Fluoroscopy time 1 minute 54 seconds. Number of images: 0. No aspiration was evident. There was transient penetration on the final thin liquid swallowing Mild residuals within the vallecula after swallowing. IMPRESSION: 1. No aspiration evident.
[2020-09-13] MEDS: FUROSEMIDE 10 MG/ML 2 ML VIAL IV SCH ×2 (17:12→20:00)
[2020-09-13] MEDS: LATANOPROST 0.005% OPHTH DROPS 2.5 ML BTL BOTH EYES SCH (19:59)
[2020-09-13] MEDS: DIVALPROEX SPRINKLE 125 MG CAP.SPRINK PO SCH (19:59)
[2020-09-14] MEDS: PANTOPRAZOLE 40 MG TABLET PO SCH (06:21)
[2020-09-14] MEDS: LEVOTHYROXINE 50 MCG TAB PO SCH (06:21)
[2020-09-14 07:50] LABS: Basophils # (A) 0.1 k/uL (0-0.2); Basophils % (A) 1 %; Eosinophils # (A) 0.2 k/uL (0-0.7); Eosinophils % (A) 2 %; HCT 27.8 % (34.0-46.0); HGB 9.3 gm/dL (11.4-16.0); Lymphocytes # (A) 0.7 k/uL (1.0-4.8); Lymphocytes % (A) 7 %; MCH 26.8 pg (25.0-35.0); MCHC 33.4 g/dL (31.0-37.0); MCV 80.3 fL (80.0-100.0); Mean Platelet Volume 6.5; Monocytes # (A) 0.6 k/uL (0-1.0); Monocytes % (A) 6 %; Neutrophils # (A) 8.1 k/uL (1.3-7.7); Neutrophils % (A) 82 %; Platelet Count 257 k/uL (150-450); RBC 3.46 m/uL (3.80-5.40); RDW 13.6 % (11.5-15.5); WBC 9.8 k/uL (3.8-10.6)
[2020-09-14 08:00] LABS: Albumin 2.5 g/dL (3.5-5.0); Calcium 8.1 mg/dL (8.4-10.2); Potassium 3.7 mmol/L (3.5-5.1); Total Bilirubin 0.5 mg/dL (0.2-1.3); Total Protein 5.4 g/dL (6.3-8.2)
[2020-09-14] MEDS: FUROSEMIDE 10 MG/ML 2 ML VIAL IV SCH ×2 (09:19→20:48)
[2020-09-14] MEDS: CYANOCOBALAMIN 500 MCG TAB PO SCH (09:20)
[2020-09-14] MEDS: ATORVASTATIN 20 MG TAB PO SCH (09:20)
[2020-09-14] MEDS: ZINC SULFATE 220 MG CAP PO SCH (09:20)
[2020-09-14] MEDS: ASCORBIC ACID 500 MG TAB PO SCH ×2 (09:20→20:33)
[2020-09-14] MEDS: METOPROLOL TARTRATE 25 MG TAB PO SCH ×2 (09:20→20:33)
[2020-09-14] MEDS: APIXABAN 5 MG TAB PO SCH ×2 (09:21→20:33)
--- NOTE | 2020-09-14 11:25 | P.PN ---
Subjective Progress Note Date: 09/14/20 HISTORY OF PRESENT ILLNESS: Patient examined this morning at the bedside. She is resting comfortably. She denies chest pain or pressure. She denies shortness of breath. She remains on IV Lasix 20 mg every 12 hours. She continues to have lower extremity edema. Sodium 135 today. Creatinine 0.98. PHYSICAL EXAM: VITAL SIGNS: Reviewed. GENERAL: Well-developed in no acute distress. NECK: Supple. No JVD or thyromegaly LUNGS: Respirations even and unlabored. Lungs diminished with faint expiratory wheezing noted. HEART: Regular rate and rhythm. S1 and S2 heard. Systolic murmur noted. EXTREMITIES: Normal range of motion. No clubbing or cyanosis. Peripheral pulses intact. 2+ bilateral lower extremity edema ASSESSMENT: CVA DVT History of mitral valve replacement Worsening peripheral edema Hyponatremia PLAN: Continue IV Lasix for an additional 24 hours Monitor kidney function and sodium levels Further recommendations pending patient's course Nurse practitioner note has been reviewed by physician. Signing provider agrees with the documented findings, assessment, and plan of care. Objective - Vital Signs Vital signs: Vital Signs Temp 97.7 F 09/14/20 04:00 Pulse 88 09/14/20 08:00 Resp 18 09/14/20 08:00 BP 112/50 09/14/20 08:00 Pulse Ox 83 L 09/14/20 08:00 Intake & Output 09/13/20 09/14/20 09/14/20 18:59 06:59 18:59 Intake Total 700 250 Balance 700 250 Weight 69 kg Intake: Oral 700 250 Other: Voiding Method Diaper Diaper Diaper # Voids 3 1 # Bowel Movements 1 - Labs CBC & Chem 7: 09/14/20 06:59 09/14/20 06:59 Labs: Abnormal Lab Results - Last 24 Hours (Table) 09/14/20 09/14/20 Range/Units 06:59 06:59 RBC 3.46 L (3.80-5.40) m/uL Hgb 9.3 L (11.4-16.0) gm/dL Hct 27.8 L (34.0-46.0) % Neutrophils # 8.1 H (1.3-7.7) k/uL Lymphocytes # 0.7 L (1.0-4.8) k/uL Sodium 135 L (137-145) mmol/L BUN 20 H (7-17) mg/dL Calcium 8.1 L (8.4-10.2) mg/dL Total Protein 5.4 L (6.3-8.2) g/dL Albumin 2.5 L (3.5-5.0) g/dL
--- NOTE | 2020-09-14 11:51 | P.PN ---
Subjective Progress Note Date: 09/14/20 This is an 89-year-old female patient who presented to ER with complaints of weakness and facial droop to right side. Patient was recently admitted and discharged and treated for Covid on 08/28/2020. Patient has completed her dexamethasone treatment. Patient currently resides at [facility]. Stevie vidal has a past medical history of hyperlipidemia hypertension mitral valve prolapse osteoarthritis thyroid disorder chronic lower back pain anxiety depression and recent Covid infections. Head CT was completed showing moderate to severe generalized atrophy and confluent periventricular burden of chronic small vessel ischemic disease both progressed from 2011. Mild ventriculomegaly also progressed probably due to central cerebral atrophy no acute intracranial abnormality seen. CTA of the neck completed showing no hemodynamically significant stenosis within the carotid and vertebral arteries of the neck multifocal peribronchial bronchial vascular airspace disease in the visualized upper lungs. Correlate for potential Covid pneumonia. Patient was evaluated by neurology services no MRI ordered at this time you aspirin and Lipitor daily. Patient with mildly elevated troponins will consult cardiology services. Will consult pulmonary services due to concerns of possible Covid pneumonia. At this time patient is showing no neurological deficits. Patient denies nausea vomiting or diarrhea. Patient denies chest pain or shortness breath. Patient denies any urinary burning or frequency On 09/12/2020 patient was seen and examined on the medical floor she is alert confused in no apparent distress, she is complaining of cough otherwise she is denying any complaints at this time she is sitting up in bed and eating her meal, chest x-ray and computed tomography scan of the chest still revealing multifocal pneumonia related to her recent Covid 19 infection O2 sat duration is 90% on room air patient is not compliant with oxygen supplements. 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 On 09/13/2020 patient was seen and examined on the medical floor she is alert, confused, in no distress, she is scheduled to have a swallow evaluation today she is not voicing any specific complaints, most of the time she is refusing oxygen however when she is compliant with oxygen she is feeling better and her O2 sat duration is above 90 on 2-4 L per nasal cannula. On 09/14/2020 patient was seen and examined on the medical floor she is alert confused in no distress, she underwent a swallow eval yesterday and there was no evidence of aspiration, her lower extremity Doppler was positive for DVT and she was started on Eliquis, white blood count was elevated at the time of admission currently has normalized, patient is still having some wheezing and generalized fatigue and physical debility otherwise no complaints at this time Objective - Vital Signs Vital signs: Vital Signs Temp 97.7 F 09/14/20 04:00 Pulse 88 09/14/20 08:00 Resp 18 09/14/20 08:00 BP 112/50 09/14/20 08:00 Pulse Ox 83 L 09/14/20 08:00 Intake & Output 09/13/20 09/14/20 09/14/20 18:59 06:59 18:59 Intake Total 700 250 Balance 700 250 Weight 69 kg Intake: Oral 700 250 Other: Voiding Method Diaper Diaper Diaper # Voids 3 1 # Bowel Movements 1 - Exam In general patient is alert slightly confused in no apparent distress Head normocephalic and atraumatic Neck supple no JVD no goiter Lungs clear to auscultation bilaterally no wheezing or crackles Heart regular rate and rhythm S1-S2, no rub or gallop Abdomen is soft nontender nondistended positive bowel sounds no hepatos plenomegaly Extremities no edema no cyanosis or clubbing Neurological examination reveals left sided facial drooping otherwise no acute deficit - Labs CBC & Chem 7: 09/14/20 06:59 09/14/20 06:59 Labs: Abnormal Lab Results - Last 24 Hours (Table) 09/14/20 09/14/20 Range/Units 06:59 06:59 RBC 3.46 L (3.80-5.40) m/uL Hgb 9.3 L (11.4-16.0) gm/dL Hct 27.8 L (34.0-46.0) % Neutrophils # 8.1 H (1.3-7.7) k/uL Lymphocytes # 0.7 L (1.0-4.8) k/uL Sodium 135 L (137-145) mmol/L BUN 20 H (7-17) mg/dL Calcium 8.1 L (8.4-10.2) mg/dL Total Protein 5.4 L (6.3-8.2) g/dL Albumin 2.5 L (3.5-5.0) g/dL Assessment and Plan Assessment: 1. Left-sided facial droop with weakness secondary to TIA. Patient was evaluated by neurology continue aspirin and Lipitor at this time 2. Recent COVID infection. Concerns for possible Covid pneumonia seen on CT. Pulmonary services have been consulted 3. Mildly elevated troponins. Will consult cardiology services 4. Hyponatremia. Repeat labs have been ordered. Diuretics currently on hold. Continue gentle hydration 5. Hyperkalemia. Repeat labs ordered 6. Leukocytosis likely secondary to systemic steroids for Covid 7. Essential hypertension 8. Hyperlipidemia. Patient maintained on statin 9. Hypothyroidism. 10. Evidence of lower extremity DVT patient was started on IV heparin, patient will be switched to Eliquis today GI prophylaxis Protonix Neurology, cardiology and pulmonary service is consulted Repeat labs ordered
[2020-09-14] MEDS: DIVALPROEX SPRINKLE 125 MG CAP.SPRINK PO SCH (20:33)
[2020-09-14] MEDS: ALPRAZolam 0.25 MG TAB PO PRN (20:33)
[2020-09-14] MEDS: LATANOPROST 0.005% OPHTH DROPS 2.5 ML BTL BOTH EYES SCH (20:48)
[2020-09-14] MEDS: SODIUM CHLORIDE 0.9% 1,000 ML IV SCH (21:08)
[2020-09-15] MEDS: ALPRAZolam 0.25 MG TAB PO PRN (02:56)
[2020-09-15 05:12] LABS: Calcium 8.1 mg/dL (8.4-10.2); Magnesium 1.7 mg/dL (1.6-2.3); Potassium 3.4 mmol/L (3.5-5.1)
[2020-09-15] MEDS ORDERED: METOPROLOL TARTRATE 50 MG TAB PO STA (05:23)
[2020-09-15] MEDS: LEVOTHYROXINE 50 MCG TAB PO SCH (05:28)
[2020-09-15] MEDS: PANTOPRAZOLE 40 MG TABLET PO SCH (05:28)
[2020-09-15] MEDS ORDERED: Potassium Replacement Protocol 1 EACH MISC MISCELLANE PRN (07:39)
[2020-09-15] MEDS: CYANOCOBALAMIN 500 MCG TAB PO SCH (09:22)
[2020-09-15] MEDS: POTASSIUM CHLORIDE ER 20 MEQ TAB.ER PO SCH ×2 (09:22→09:25)
[2020-09-15] MEDS: ATORVASTATIN 20 MG TAB PO SCH (09:23)
[2020-09-15] MEDS: METOPROLOL TARTRATE 25 MG TAB PO SCH ×2 (09:23→20:55)
[2020-09-15] MEDS: ZINC SULFATE 220 MG CAP PO SCH (09:23)
[2020-09-15] MEDS: ASCORBIC ACID 500 MG TAB PO SCH ×2 (09:23→20:55)
[2020-09-15] MEDS: APIXABAN 5 MG TAB PO SCH ×2 (09:24→20:55)
[2020-09-15] MEDS: FUROSEMIDE 10 MG/ML 2 ML VIAL IV SCH (09:24)
--- NOTE | 2020-09-15 11:05 | P.PN ---
Subjective Progress Note Date: 09/15/20 This is an 89-year-old female patient who presented to ER with complaints of weakness and facial droop to right side. Patient was recently admitted and discharged and treated for Covid on 08/28/2020. Patient has completed her dexamethasone treatment. Patient currently resides at [facility]. Stevie vidal has a past medical history of hyperlipidemia hypertension mitral valve prolapse osteoarthritis thyroid disorder chronic lower back pain anxiety depression and recent Covid infections. Head CT was completed showing moderate to severe generalized atrophy and confluent periventricular burden of chronic small vessel ischemic disease both progressed from 2011. Mild ventriculomegaly also progressed probably due to central cerebral atrophy no acute intracranial abnormality seen. CTA of the neck completed showing no hemodynamically significant stenosis within the carotid and vertebral arteries of the neck multifocal peribronchial bronchial vascular airspace disease in the visualized upper lungs. Correlate for potential Covid pneumonia. Patient was evaluated by neurology services no MRI ordered at this time you aspirin and Lipitor daily. Patient with mildly elevated troponins will consult cardiology services. Will consult pulmonary services due to concerns of possible Covid pneumonia. At this time patient is showing no neurological deficits. Patient denies nausea vomiting or diarrhea. Patient denies chest pain or shortness breath. Patient denies any urinary burning or frequency On 09/12/2020 patient was seen and examined on the medical floor she is alert confused in no apparent distress, she is complaining of cough otherwise she is denying any complaints at this time she is sitting up in bed and eating her meal, chest x-ray and computed tomography scan of the chest still revealing multifocal pneumonia related to her recent Covid 19 infection O2 sat duration is 90% on room air patient is not compliant with oxygen supplements. 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 On 09/13/2020 patient was seen and examined on the medical floor she is alert, confused, in no distress, she is scheduled to have a swallow evaluation today she is not voicing any specific complaints, most of the time she is refusing oxygen however when she is compliant with oxygen she is feeling better and her O2 sat duration is above 90 on 2-4 L per nasal cannula. On 09/14/2020 patient was seen and examined on the medical floor she is alert confused in no distress, she underwent a swallow eval yesterday and there was no evidence of aspiration, her lower extremity Doppler was positive for DVT and she was started on Eliquis, white blood count was elevated at the time of admission currently has normalized, patient is still having some wheezing and generalized fatigue and physical debility otherwise no complaints at this time On 09/15/2020 patient is alert and resting comfortably in bed with intermittent episodes of confusion. Patient has been started on eliquis for DVT. Patient remains on IV Lasix per cardiology services. At this time patient denies any chest pain or shortness of breath. Patient denies any nausea vomiting or diarrhea. Patient denies any urinary burning or frequency Objective - Vital Signs Vital signs: Vital Signs Temp 96 F L 09/15/20 08:00 Pulse 71 09/15/20 08:00 Resp 17 09/15/20 08:00 BP 90/46 09/15/20 08:00 Pulse Ox 96 09/15/20 08:00 Intake & Output 09/14/20 09/15/20 09/15/20 18:59 06:59 18:59 Intake Total 236 Balance 236 Weight 66 kg Intake: Oral 236 Other: Voiding Method Diaper Diaper # Voids 1 1 # Bowel Movements 1 1 - Exam In general patient is alert slightly confused in no apparent distress Head normocephalic and atraumatic Neck supple no JVD no goiter Lungs clear to auscultation bilaterally no wheezing or crackles Heart regular rate and rhythm S1-S2, no rub or gallop Abdomen is soft nontender nondistended positive bowel sounds no hepatosplenomegaly Extremities no edema no cyanosis or clubbing Neurological examination reveals left sided facial drooping otherwise no acute deficit - Labs CBC & Chem 7: 09/14/20 06:59 09/15/20 04:33 Labs: Abnormal Lab Results - Last 24 Hours (Table) 09/15/20 Range/Units 04:33 Sodium 133 L (137-145) mmol/L Potassium 3.4 L (3.5-5.1) mmol/L BUN 19 H (7-17) mg/dL Creatinine 1.06 H (0.52-1.04) mg/dL Glucose 115 H (74-99) mg/dL Calcium 8.1 L (8.4-10.2) mg/dL Assessment and Plan Assessment: 1. Left-sided facial droop with weakness secondary to TIA. Neurology services are following. Patient remains on Lipitor 2. Recent COVID infection. Concerns for possible Covid pneumonia seen on CT. patient was evaluated by pulmonary services patient has completed Decadron for previous Covid 19 infection not currently having any pulmonary symptoms at this time per pulmonary 3. Mildly elevated troponins. Per cardiology services no evidence to suggest acute coronary syndrome could be related to recent Covid 19 pneumonia. 4. Hyponatremia. Repeat labs have been ordered. Diuretics currently on hold. Continue gentle hydration 5. Hyperkalemia. Repeat labs ordered. Resolved 6. Leukocytosis likely secondary to systemic steroids for Covid. Resolved 7. Essential hypertension 8. Hyperlipidemia. Patient maintained on statin 9. Hypothyroidism. 10. Evidence of lower extremity DVT patient was started on IV heparin, patient will be switched to Eliquis today 11. Peripheral edema. Patient remains on IV Lasix per cardiology services continue to monitor kidney function and sodium levels closely 12. Hypokalemia. Potassium 3.4. Replacement protoco 13. History of mitral valve prolapse status post replacement. 14. Atrial fibrillation noted per nursing staff this a.m. Patient is currently on eliquis for anticoagulation for DVT cardiology services are following increased dose metoprolol given heart rate is now controlled Neurology, cardiology and pulmonary services are following
--- NOTE | 2020-09-15 12:51 | P.PN ---
Subjective Progress Note Date: 09/15/20 Physical pleasant 89-year-old female patient with known history of mitral valve surgery, dementia. Presented with symptoms of CVA. She also has evidence of DVT. At the time my examination she is resting completely benign with no current complaints. 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 Her beta sang was given early and she is since converted to sinus mechanism. She continues to be anticoagulated on Eliquis. She remains on Lipitor, Lasix 20 mg IV push every 12 hours and Lopressor 25 mg by mouth twice a day. Objective - Vital Signs Vital signs: Vital Signs Temp 96 F L 09/15/20 08:00 Pulse 71 09/15/20 08:00 Resp 17 09/15/20 08:00 BP 90/46 09/15/20 08:00 Pulse Ox 96 09/15/20 08:00 Intake & Output 09/14/20 09/15/20 09/15/20 18:59 06:59 18:59 Intake Total 236 Balance 236 Weight 66 kg Intake: Oral 236 Other: Voiding Method Diaper Diaper Diaper # Voids 1 1 3 # Bowel Movements 1 1 - Exam PHYSICAL EXAMINATION: HEENT: Head is atraumatic, normocephalic. Pupils equal, round. Neck is supple. There is no elevated jugular venous pressure. HEART EXAMINATION: Heart sounds regular, S1 and S2 with a systolic murmur. CHEST EXAMINATION: Lungs are clear to auscultation. No chest wall tenderness is noted on palpation or with deep breathing. ABDOMEN: Soft, nontender. Bowel sounds are heard. No organomegaly noted. EXTREMITIES: 2+ peripheral pulses with evidence of trace peripheral edema and no calf tenderness noted. NEUROLOGIC patient is awake, alert and oriented to person. . - Labs CBC & Chem 7: 09/14/20 06:59 09/15/20 04:33 Labs: Abnormal Lab Results - Last 24 Hours (Table) 09/15/20 Range/Units 04:33 Sodium 133 L (137-145) mmol/L Potassium 3.4 L (3.5-5.1) mmol/L BUN 19 H (7-17) mg/dL Creatinine 1.06 H (0.52-1.04) mg/dL Glucose 115 H (74-99) mg/dL Calcium 8.1 L (8.4-10.2) mg/dL Assessment and Plan Assessment: #1 CVA #2 DVT #3 history of mitral valve replacement #4 peripheral edema, improving #5 hyponatremia currently on IV Lasix Plan: From cardiology perspective we will switch the patient to oral Lasix. Continue to monitor renal function and electrolytes. We will continue to follow the patient and provide further recommendations accordingly. DIRECTOR OF [employer]PORATE REAL ESTATE note has been reviewed, I agree with a documented findings and plan of care. Patient was seen and examined.
[2020-09-15] MEDS ORDERED: POTASSIUM BICARBONATE/CIT AC 20 MEQ TABLET.EFF PO ONE (15:04)
[2020-09-15] MEDS: FUROSEMIDE 20 MG TAB PO SCH (17:17)
[2020-09-15] MEDS: DIVALPROEX SPRINKLE 125 MG CAP.SPRINK PO SCH (20:55)
[2020-09-15] MEDS: LATANOPROST 0.005% OPHTH DROPS 2.5 ML BTL BOTH EYES SCH (21:05)
[2020-09-16 04:15] VITALS: RESP 18
[2020-09-16] MEDS: LEVOTHYROXINE 50 MCG TAB PO SCH (06:14)
[2020-09-16] MEDS: PANTOPRAZOLE 40 MG TABLET PO SCH (06:14)
[2020-09-16 07:44] LABS: Basophils # (A) 0.1 k/uL (0-0.2); Basophils % (A) 2 %; Eosinophils # (A) 0.2 k/uL (0-0.7); Eosinophils % (A) 3 %; HCT 30.4 % (34.0-46.0); HGB 9.7 gm/dL (11.4-16.0); Hypochromasia Slight; Lymphocytes # (A) 0.8 k/uL (1.0-4.8); Lymphocytes % (A) 9 %; MCH 25.9 pg (25.0-35.0); MCV 80.9 fL (80.0-100.0); Mean Platelet Volume 6.5; Monocytes # (A) 0.9 k/uL (0-1.0); Monocytes % (A) 10 %; Neutrophils # (A) 6.3 k/uL (1.3-7.7); Neutrophils % (A) 73 %; Platelet Count 312 k/uL (150-450); RBC 3.75 m/uL (3.80-5.40); RDW 13.6 % (11.5-15.5); WBC 8.6 k/uL (3.8-10.6)
[2020-09-16 08:00] LABS: Albumin 2.8 g/dL (3.5-5.0); Calcium 8.5 mg/dL (8.4-10.2); Magnesium 1.9 mg/dL (1.6-2.3); Potassium 4.3 mmol/L (3.5-5.1); Total Bilirubin 0.5 mg/dL (0.2-1.3); Total Protein 5.8 g/dL (6.3-8.2)
[2020-09-16] MEDS: ATORVASTATIN 20 MG TAB PO SCH (08:34)
[2020-09-16] MEDS: ASCORBIC ACID 500 MG TAB PO SCH (08:34)
[2020-09-16] MEDS: ZINC SULFATE 220 MG CAP PO SCH (08:34)
[2020-09-16] MEDS: METOPROLOL TARTRATE 25 MG TAB PO SCH (08:34)
[2020-09-16] MEDS: FUROSEMIDE 20 MG TAB PO SCH (08:35)
[2020-09-16] MEDS: APIXABAN 5 MG TAB PO SCH (08:35)
[2020-09-16] MEDS: SODIUM CHLORIDE 0.9% 1,000 ML IV SCH (08:35)
[2020-09-16] MEDS: CYANOCOBALAMIN 500 MCG TAB PO SCH (08:35)
[2020-09-16 09:44] VITALS: BP 109/65; PULSE 82; TEMP 97.5
--- NOTE | 2020-09-16 12:43 | P.DS ---
Providers Date of admission: 09/10/20 15:40 Expected date of discharge: 09/16/20 Attending physician: Genevieve Singh Consults: 09/10/20 13:55 Consult Physician Routine Consulting Provider: Derek Mccollum Consult Reason/Comments: Possible TIA Do you want consulting provider notified?: Yes 09/11/20 12:23 Consult Physician Routine Consulting Provider: Migel Andrade Consult Reason/Comments: elevated troponins Do you want consulting provider notified?: Yes 09/11/20 12:28 Consult Physician Routine Consulting Provider: Segun Reyes Consult Reason/Comments: chest xray, history of COVId Do you want consulting provider notified?: Yes Primary care physician: Dieter [facility] Course: Diagnosis on discharge: 1. Left-sided facial droop with weakness secondary to TIA. Neurology services are following. Patient remains on Lipitor 2. Recent COVID infection. Concerns for possible Covid pneumonia seen on CT. patient was evaluated by pulmonary services patient has completed Decadron for previous Covid 19 infection not currently having any pulmonary symptoms at this time per pulmonary 3. Mildly elevated troponins. Per cardiology services no evidence to suggest acute coronary syndrome could be related to recent Covid 19 pneumonia. 4. Hyponatremia. Repeat labs have been ordered. Diuretics currently on hold. Continue gentle hydration 5. Hyperkalemia. Repeat labs ordered. Resolved 6. Leukocytosis likely secondary to systemic steroids for Covid. Resolved 7. Essential hypertension 8. Hyperlipidemia. Patient maintained on statin 9. Hypothyroidism. 10. Evidence of lower extremity DVT patient was started on IV heparin, patient will be switched to Eliquis today 11. Peripheral edema. Patient remains on IV Lasix per cardiology services continue to monitor kidney function and sodium levels closely 12. Hypokalemia. Potassium 3.4. Replacement protoco 13. History of mitral valve prolapse status post replacement. 14. Atrial fibrillation noted per nursing staff this a.m. Patient is currently on eliquis for anticoagulation for DVT cardiology services are following increased dose metoprolol given heart rate is now controlled Hospital course: This is an 89-year-old female patient who presented to ER with complaints of weakness and facial droop to right side. Patient was recently admitted and discharged and treated for Covid on 08/28/2020. Patient has completed her dexamethasone treatment. Patient currently resides at [facility]. Patient has a past medical history of hyperlipidemia hypertension mitral valve prolapse osteoarthritis thyroid disorder chronic lower back pain anxiety depression and recent Covid infections. Head CT was completed showing moderate to severe generalized atrophy and confluent periventricular burden of chronic small vessel ischemic disease both progressed from 2011. Mild ventriculomegaly also progressed probably due to central cerebral atrophy no acute intracranial abnormality seen. CTA of the neck completed showing no hemodynamically significant stenosis within the carotid and vertebral arteries of the neck multifocal peribronchial bronchial vascular airspace disease in the visualized upper lungs. Correlate for potential Covid pneumonia. Patient was evaluated by neurology services no MRI ordered at this time you aspirin and Lipitor daily. Patient with mildly elevated troponins will consult cardiology services. Will consult pulmonary services due to concerns of possible Covid pneumonia. At this time patient is showing no neurological deficits. Patient denies nausea vomiting or diarrhea. Patient denies chest pain or shortness breath. Patient denies any urinary burning or frequency On 09/12/2020 patient was seen and examined on the medical floor she is alert confused in no apparent distress, she is complaining of cough otherwise she is denying any complaints at this time she is sitting up in bed and eating her meal, chest x-ray and computed tomography scan of the chest still revealing multifocal pneumonia related to her recent Covid 19 infection O2 sat duration is 90% on room air patient is not compliant with oxygen supplements. 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 On 09/13/2020 patient was seen and examined on the medical floor she is alert, confused, in no distress, she is scheduled to have a swallow evaluation today she is not voicing any specific complaints, most of the time she is refusing oxygen however when she is compliant with oxygen she is feeling better and her O2 sat duration is above 90 on 2-4 L per nasal cannula. On 09/14/2020 patient was seen and examined on the medical floor she is alert confused in no distress, she underwent a swallow eval yesterday and there was no evidence of aspiration, her lower extremity Doppler was positive for DVT and she was started on Eliquis, white blood count was elevated at the time of admission currently has normalized, patient is still having some wheezing and generalized fatigue and physical debility otherwise no complaints at this time On 09/15/2020 patient is alert and resting comfortably in bed with intermittent episodes of confusion. Patient has been started on eliquis for DVT. Patient remains on IV Lasix per cardiology services. At this time patient denies any chest pain or shortness of breath. Patient denies any nausea vomiting or diarrhea. Patient denies any urinary burning or frequency On 09/16/2020 patient was seen and examined on the medical floor she is alert and oriented 3 in no apparent distress there is no fever or chills no headache or dizziness no chest pain no shortness of breath no cough no nausea or vomiting no abdominal pain no diarrhea and no urinary symptoms. Patient has been stable she was evaluated by cardiology and was cleared for discharge, she will be transferred to group home for further treatment and rehabilitation. Prognosis remains guarded due to multiple underlying medical problems. Patient Condition at Discharge: Fair Plan - Discharge Summary Discharge Rx Participant: No New Discharge Prescriptions: New Apixaban [Eliquis] 10 mg PO BID tab Furosemide [Lasix] 20 mg PO BID@0900,1600 tab Metoprolol Tartrate [Lopressor] 25 mg PO BID tab Pantoprazole [Protonix] 40 mg PO AC-BRKFST tablet.dr Continue Latanoprost Ophth [Xalatan 0.005%] 1 drop BOTH EYES HS Loperamide [Imodium] 2 - 4 mg PO QID PRN MDD 6 doses PRN Reason: Diarrhea Ergocalciferol [Vitamin D2 (DRISDOL)] 50,000 unit PO TH@0600 Bisacodyl 5 mg PO DAILY PRN PRN Reason: Constipation Ferrous Sulfate [Iron (65 MG Elemental)] 325 mg PO DAILY Calcium Polycarbophil [Fiber-Lax] 625 mg PO DAILY Divalproex Sodium [Depakote Sprinkle] 125 mg PO HS@2000 Cyanocobalamin (Vitamin B-12) [Vitamin B-12] 1,000 mcg PO DAILY Ascorbic Acid [Vitamin C] 500 mg PO BID Zinc 50 mg PO DAILY Acetaminophen Tab [Tylenol] 650 mg PO Q6HR PRN tab PRN Reason: Mild Pain Or Fever > 100.5 Albuterol Inhaler [Ventolin Hfa Inhaler] 2 puff INHALATION RT-QID PRN puff PRN Reason: Shortness Of Breath Or Wheezing LORazepam [Ativan] 0.25 mg PO DAILY #2 tab Levothyroxine Sodium [Synthroid] 50 mcg PO DAILY@0700 Discontinued Furosemide [Lasix] 20 mg PO DAILY Acetaminophen Tab [Tylenol] 1,000 mg PO Q4-6H PRN PRN Reason: Pain Guaifen/Dextromethorphan/PE [Mucinex Fast-Max Congest-Cough] 20 ml PO Q4H PRN PRN Reason: Cough Discharge Medication List Latanoprost Ophth [Xalatan 0.005%] 1 drop BOTH EYES HS 01/31/14 [History] Loperamide [Imodium] 2 - 4 mg PO QID PRN MDD 6 doses 04/16/14 [History] Ergocalciferol [Vitamin D2 (DRISDOL)] 50,000 unit PO TH@0600 04/05/18 [History] Bisacodyl 5 mg PO DAILY PRN 06/15/20 [History] Calcium Polycarbophil [Fiber-Lax] 625 mg PO DAILY 06/15/20 [History] Cyanocobalamin (Vitamin B-12) [Vitamin B-12] 1,000 mcg PO DAILY 06/15/20 [History] Divalproex Sodium [Depakote Sprinkle] 125 mg PO HS@199906/15/20 [History] Ferrous Sulfate [Iron (65 MG Elemental)] 325 mg PO DAILY 06/15/20 [History] Ascorbic Acid [Vitamin C] 500 mg PO BID 08/25/20 [History] Zinc 50 mg PO DAILY 08/25/20 [History] Acetaminophen Tab [Tylenol] 650 mg PO Q6HR PRN tab 08/28/20 [Rx] Albuterol Inhaler [Ventolin Hfa Inhaler] 2 puff INHALATION RT-QID PRN puff 08/28/20 [Rx] LORazepam [Ativan] 0.25 mg PO DAILY #2 tab 08/29/20 [Rx] Levothyroxine Sodium [Synthroid] 50 mcg PO DAILY@0700 09/10/20 [History] Apixaban [Eliquis] 10 mg PO BID tab 09/16/20 [Rx] Furosemide [Lasix] 20 mg PO BID@0900,1600 tab 09/16/20 [Rx] Metoprolol Tartrate [Lopressor] 25 mg PO BID tab 09/16/20 [Rx] Pantoprazole [Protonix] 40 mg PO AC-BRKFST tablet. 09/16/20 [Rx] Follow up Appointment(s)/Referral(s): Dieter Schultz MD [Primary Care Provider] - 1-2 days
[2020-09-16 13:23] VITALS: BMI 23.6
--- NOTE | 2020-09-16 14:45 | P.PN ---
Subjective Progress Note Date: 09/16/20 HISTORY OF PRESENT ILLNESS: Patient examined this morning at the bedside. She is resting comfortably. She denies chest pain or pressure. She denies shortness of breath. Patient was transitioned to oral Lasix yesterday. Creatinine 1.14 today. Patient remains in sinus mechanism per telemetry monitoring. PHYSICAL EXAM: VITAL SIGNS: Reviewed. GENERAL: Well-developed in no acute distress. NECK: Supple. No JVD or thyromegaly LUNGS: Respirations even and unlabored. Lungs diminished with expiratory wheezing noted. HEART: Regular rate and rhythm. S1 and S2 heard. Systolic murmur noted. EXTREMITIES: Normal range of motion. No clubbing or cyanosis. Peripheral pulses intact. 1-2+ bilateral lower extremity edema ASSESSMENT: CVA DVT History of mitral valve replacement Peripheral edema Hyponatremia Paroxysmal atrial fibrillation with RVR, currently maintaining sinus mechanism PLAN: Continue current cardiac medications. Patient is stable for discharge from a cardiac perspective. We will sign off. Please reconsult if needed. Nurse practitioner note has been reviewed by physician. Signing provider agrees with the documented findings, assessment, and plan of care. Objective - Vital Signs Vital signs: Vital Signs Temp 97.5 F L 09/16/20 08:00 Pulse 82 09/16/20 08:00 Resp 18 09/16/20 08:00 BP 109/65 09/16/20 08:00 Pulse Ox 98 09/16/20 08:00 Intake & Output 09/15/20 09/16/20 09/16/20 18:59 06:59 18:59 Intake Total 236 Balance 236 Weight 66.5 kg 66.5 kg Intake: Oral 236 Other: Voiding Method Diaper Diaper Diaper # Voids 3 1 # Bowel Movements 1 - Labs CBC & Chem 7: 09/16/20 07:07 09/16/20 07:07 Labs: Abnormal Lab Results - Last 24 Hours (Table) 09/16/20 09/16/20 Range/Units 07:07 07:07 RBC 3.75 L (3.80-5.40) m/uL Hgb 9.7 L (11.4-16.0) gm/dL Hct 30.4 L (34.0-46.0) % Lymphocytes # 0.8 L (1.0-4.8) k/uL Sodium 136 L (137-145) mmol/L BUN 23 H (7-17) mg/dL Creatinine 1.14 H (0.52-1.04) mg/dL Total Protein 5.8 L (6.3-8.2) g/dL Albumin 2.8 L (3.5-5.0) g/dL
== END 2020-09-16 14:50 | DRG 69 ==
LOC: EC 12:42 → 3SCARD 15:40
PROVIDERS: ADMIT Internal Medicine; ATTEND Internal Medicine
DX: G45.9 Transient cerebral ischemic attack, unspecified (principal); E87.1 Hypo-osmolality and hyponatremia; I82.402 Acute embolism and thrombosis of unspecified deep veins of left lower extremity; I82.509 Chronic embolism and thrombosis of unspecified deep veins of unspecified lower extremity; N17.9 Acute kidney failure, unspecified; R29.700 NIHSS score 0; E03.9 Hypothyroidism, unspecified; E78.5 Hyperlipidemia, unspecified; E86.0 Dehydration; E86.1 Hypovolemia; E87.5 Hyperkalemia; E87.6 Hypokalemia; F02.80 Dementia in other diseases classified elsewhere, unspecified severity, without behavioral disturbance, psychotic disturbance, mood disturbance, and anxiety; F32.9 Major depressive disorder, single episode, unspecified; F41.0 Panic disorder [episodic paroxysmal anxiety]; G30.9 Alzheimer's disease, unspecified; G93.89 Other specified disorders of brain; I08.1 Rheumatic disorders of both mitral and tricuspid valves; I10 Essential (primary) hypertension; R79.89 Other specified abnormal findings of blood chemistry; Z86.16 Personal history of COVID-19; Z87.01 Personal history of pneumonia (recurrent); I48.0 Paroxysmal atrial fibrillation; R29.810 Facial weakness; T38.0X5A Adverse effect of glucocorticoids and synthetic analogues, initial encounter; D72.829 Elevated white blood cell count, unspecified; T50.1X5A Adverse effect of loop [high-ceiling] diuretics, initial encounter; Z79.01 Long term (current) use of anticoagulants; Z79.82 Long term (current) use of aspirin; Z79.890 Hormone replacement therapy; Z79.899 Other long term (current) drug therapy; Z82.49 Family history of ischemic heart disease and other diseases of the circulatory system; Z95.2 Presence of prosthetic heart valve; Z96.653 Presence of artificial knee joint, bilateral; Z98.42 Cataract extraction status, left eye; Z98.41 Cataract extraction status, right eye; H40.9 Unspecified glaucoma; G89.29 Other chronic pain; M54.5 Low back pain; Z90.89 Acquired absence of other organs; Z83.6 Family history of other diseases of the respiratory system
CPT/HCPCS: 36415; 70450; 70496; 70498; 71045; 74230; 80048; 80053; 80061; 82550; 82607; 82747; 83735; 84443; 84484; 85025; 85379; 85610; 85730; 93005; 93308; 93970; 94640; 94760; 96361; 96374; 99291